=== PATIENT | male | born 1960 | race Caucasian/White ===

== ENCOUNTER 2019-04-28 12:55 | Emergency (ER) | payer BC ==
[2019-04-28 13:12] VITALS: RESP 18
[2019-04-28] MEDS ORDERED: SODIUM CHLORIDE 0.9% 500 ML 500 ML IV STA (14:23)
--- NOTE | 2019-04-28 14:28 | ED ---
General Adult HPI - General Chief complaint: ENT Stated complaint: Lump on neck Time Seen by Provider: 04/28/19 14:11 Source: patient, RN notes reviewed Mode of arrival: ambulatory Limitations: no limitations - History of Present Illness Initial comments: 58-year-old male presents to the emergency department for a chief complaint of "lump on neck." Patient states he has felt a pop on the left side of his neck for several months. Patient states that he was hoping it would go away. States he did call his primary care provider however has never seen them so it will take several months to be able to get an appointment. Patient states his finally made him come in today. Patient denies any difficulty swallowing. Denies respiratory distress. Denies fevers or chills. He does state he has some discomfort when turning his neck. Patient does have a smoking history. Patient has no other complaints at this time including shortness of breath, chest pain, abdominal pain, nausea or vomiting, headache, or visual changes. - Related Data Home Medications Medication Instructions Recorded Confirmed Multivitamins, Thera [Multivitamin 1 tab PO DAILY 04/28/19 04/28/19 (formulary)] Allergies Allergy/AdvReac Type Severity Reaction Status Date / Time No Known Allergies Allergy Verified 04/28/19 16:34 Review of Systems ROS Statement: Those systems with pertinent positive or pertinent negative responses have been documented in the HPI. ROS Other: All systems not noted in ROS Statement are negative. Past Medical History Past Medical History: No Reported History History of Any Multi-Drug Resistant Organisms: None Reported Past Surgical History: No Surgical Hx Reported Past Psychological History: No Psychological Hx Reported Smoking Status: Current some day smoker Past Alcohol Use History: None Reported Past Drug Use History: None Reported General Exam Limitations: no limitations General appearance: alert, in no apparent distress Head exam: Present: atraumatic, normocephalic, normal inspection Eye exam: Present: normal appearance, PERRL, EOMI. Absent: scleral icterus, conjunctival injection ENT exam: Present: normal exam, normal oropharynx (patent, uvula is midline. Tonsillar pillars are symmetric.), mucous membranes moist, TM's normal bilaterally, normal external ear exam Neck exam: Present: normal inspection, full ROM, lymphadenopathy (Patient has a nodule noted to the left side submandibular area). Absent: tenderness, men ingismus Respiratory exam: Present: normal lung sounds bilaterally. Absent: respiratory distress, wheezes, rales, rhonchi, stridor Cardiovascular Exam: Present: regular rate, normal rhythm, normal heart sounds. Absent: systolic murmur, diastolic murmur, rubs, gallop, clicks GI/Abdominal exam: Present: normal bowel sounds Neurological exam: Present: alert Course Vital Signs 04/28/19 04/28/19 04/28/19 13:07 14:10 17:34 Temperature 97.9 F 98.3 F 98 F Pulse Rate 83 77 76 Respiratory 18 18 18 Rate Blood Pressure 132/82 111/85 137/98 O2 Sat by Pulse 100 97 95 Oximetry Medical Decision Making - Medical Decision Making She presents with left-sided neck nodule for several months. Patient finally came today because his made him. He denies dysphagia, respiratory distr ess. Handling secretions without difficulty. Oropharynx is patent. Well- appearing. Vitals are stable. CBC CMP is unremarkable. CT soft tissue neck with contrast was obtained which shows underlying large heterogeneously enhancing possibly partially necrotic lymph nodes on the left side of the neck measuring up to 4.8 cm. Mass effects to the left carotid space and slight asymmetric effacement of the left puriform sinus. Underlying metastatic lymphadenopathy or severe infectious lymphadenitis are considerations. This presents as a lymphadenopathy. The given has been several months, non- erythematous, nontender. Not consistent with a severe infection. However I did discuss this case with Dr. Lucio. He recommends patient follow [facility] with [facility], does not recommend emergenct transfer. I did call their hospital and they recommend calling the referring physician office on Tuesday. They would not let me speak directly to the ENT or resident. I will also give this information to Shena, follow-up RN. She will also call this line as well as the patient to ensure that he is having appropriate follow-up. - Lab Data Result diagrams: 04/28/19 14:38 04/28/19 14:38 Lab Results 04/28/19 04/28/19 Range/Units 14:38 14:38 WBC 5.9 (3.8-10.6) k/uL RBC 5.28 (4.30-5.90) m/uL Hgb 15.4 (13.0-17.5) gm/dL Hct 47.0 (39.0-53.0) % MCV 88.9 (80.0-100.0) fL MCH 29.2 (25.0-35.0) pg MCHC 32.8 (31.0-37.0) g/dL RDW 12.3 (11.5-15.5) % Plt Count 194 (150-450) k/uL Neutrophils % (Manual) 51 % Lymphocytes % (Manual) 29 % Monocytes % (Manual) 18 % Eosinophils % (Manual) 2 % Neutrophils # (Manual) 3.01 (1.3-7.7) k/uL Lymphocytes # (Manual) 1.71 (1.0-4.8) k/uL Monocytes # (Manual) 1.06 H (0-1.0) k/uL Eosinophils # (Manual) 0.12 (0-0.7) k/uL Nucleated RBCs 0 (0-0) /100 WBC Manual Slide Review Performed Sodium 136 L (137-145) mmol/L Potassium 4.4 (3.5-5.1) mmol/L Chloride 105 (98-107) mmol/L Carbon Dioxide 26 (22-30) mmol/L Anion Gap 5 mmol/L BUN 17 (9-20) mg/dL Creatinine 0.72 (0.66-1.25) mg/dL Est GFR (CKD-EPI)AfAm >90 (>60 ml/min/1.73 sqM) Est GFR (CKD-EPI)NonAf >90 (>60 ml/min/1.73 sqM) Glucose 142 H (74-99) mg/dL Calcium 8.7 (8.4-10.2) mg/dL Total Bilirubin 0.5 (0.2-1.3) mg/dL AST 35 (17-59) U/L ALT 26 (4-49) U/L Alkaline Phosphatase 67 (38-126) U/L Total Protein 6.6 (6.3-8.2) g/dL Albumin 4.0 (3.5-5.0) g/dL Disposition Clinical Impression: Lump on neck Disposition: HOME SELF-CARE Condition: Good Instructions (If sedation given, give patient instructions): Lymphadenopathy (ED) Additional Instructions: Please call Wali Palma's referring physician office on Tuesday for urgent ENT referral. Phone number [phone]. We will also have our nurse call in the morning. Follow up with primary care as well. Return to the emergency dept if you have any worsening symptoms Is patient prescribed a controlled substance at d/c from ED?: No Referrals: Moises Joseph MD [REFERRING] - 1-2 days Time of Disposition: 17:24
[2019-04-28 15:00] LABS: ALT 26 U/L (4-49); AST 35 U/L (17-59); African American GFR (CKD) >90 (>60 ml/min/1.73 sqM); Alkaline Phosphatase 67 U/L (38-126); Anion Gap 5 mmol/L; Blood Urea Nitrogen 17 mg/dL (9-20); Calcium 8.7 mg/dL (8.4-10.2); Carbon Dioxide 26 mmol/L (22-30); Chloride 105 mmol/L (98-107); Glucose 142 mg/dL (74-99); Non-African American GFR(CKD) >90 (>60 ml/min/1.73 sqM); Potassium 4.4 mmol/L (3.5-5.1); Sodium 136 mmol/L (137-145); Total Bilirubin 0.5 mg/dL (0.2-1.3); Total Protein 6.6 g/dL (6.3-8.2)
[2019-04-28 15:01] LABS: HGB 15.4 gm/dL (13.0-17.5); MCH 29.2 pg (25.0-35.0); MCHC 32.8 g/dL (31.0-37.0); MCV 88.9 fL (80.0-100.0); Mean Platelet Volume 7.2; Platelet Count 194 k/uL (150-450); RBC 5.28 m/uL (4.30-5.90); RDW 12.3 % (11.5-15.5); WBC 5.9 k/uL (3.8-10.6)
--- NOTE | 2019-04-28 15:16 | CT ---
EXAMINATION TYPE: CT soft tissue neck w con DATE OF EXAM: 04/28/2019 COMPARISON: None HISTORY: 58-year-old male neck swelling TECHNIQUE: Contiguous axial scanning of the soft tissues of the neck performed with IV Contrast, vanessa ent injected with 100 mL of Isovue 300. Coronal/sagittal reconstructions performed. CT DLP: 184 mGycm Automated exposure control for dose reduction was used. FINDINGS: Visualized intracranial structures show no gross abnormality by neck CT technique. Visualized paranas al sinuses show rightward nasal septal deviation. Mastoid air cells appear clear. Orbits and globes a ppear intact. Nasopharynx appears clear. Slight 7 mm nodularity along the right vallecular space, probable lingual tonsillar hypertrophy. Epiglottis and prevertebral soft tissues appear within normal limits. There seems to be underlying enlarged, heterogeneously enhancing, possibly partially necrotic lymph n odes along the left side of the neck measuring up to approximately 4.8 x 4.4 x 2.8 cm, refer to coron al image 42 and axially 46. This seems to be spanning left stations 2 and 3. Fat planes are not well delineated limiting assessment. There is some mass effect onto the left carot id space and slight asymmetric effacement of the left piriform sinus as a result. Glottic and subglottic structures as well as the tracheal column appear clear. Emphysematous change i n the visualized upper lungs with biapical pleural parenchymal scarring. Thyroid, submandibular, parotid glands show no gross abnormality. Mild to moderate degenerative disc disease mid to lower cervical spine reversal of the normal cervica l lordosis. IMPRESSION: FINDINGS SUGGEST UNDERLYING LARGE, HETEROGENEOUSLY ENHANCING, POSSIBLY PARTIALLY NECROTIC LYMPH NODES ALONG THE LEFT SIDE OF THE NECK MEASURING UP TO 4.8 X 4.4 X 2.8 CM. THERE IS MASS EFFECT TO THE LEFT CAROTID SPACE AND SLIGHT ASYMMETRIC EFFACEMENT OF THE LEFT PIRIFORM SINUS A RESULT. UNDERLYING ME TASTATIC LYMPHADENOPATHY OR SEVERE INFECTIOUS LYMPHADENITIS ARE CONSIDERATIONS.
[2019-04-28 15:27] LABS: Eosinophils # (M) 0.12 k/uL (0-0.7); Lymphocytes # (M) 1.71 k/uL (1.0-4.8); Monocytes # (M) 1.06 k/uL (0-1.0); Neutrophils # (M) 3.01 k/uL (1.3-7.7); Neutrophils % (M) 51 %; Nucleated Red Blood Cells 0 /100 WBC (0-0); Total Cells Counted 100
[2019-04-28 17:41] VITALS: BP 137/98; PULSE 76; TEMP 98
== END 2019-04-28 17:34 | disposition home or self-care (01) ==
LOC: EC 12:55
DX: R59.0 Localized enlarged lymph nodes (principal); F17.200 Nicotine dependence, unspecified, uncomplicated
CPT/HCPCS: 36415; 80053; 85025; 70491; 99284; 96360; Q9967

== ENCOUNTER → 2019-05-15 | Outpatient (CLI) | payer BC ==
[2019-05-16 02:51] LABS: EBV - VCA (IgG) >750.0 U/mL (<18.0); EBV - VCA IgM <10.0 U/mL (<36.0)
== END ==
LOC: LABWHC1 11:25
PROVIDERS: ATTEND Otolaryngology
DX: R22.1 Localized swelling, mass and lump, neck (principal); R53.83 Other fatigue
CPT/HCPCS: 36415; 83615; 86665

== ENCOUNTER → 2019-05-17 | Outpatient (CLI) | payer BC ==
--- NOTE | 2019-05-17 14:53 | CT ---
EXAMINATION TYPE: CT chest w con DATE OF EXAM: 05/17/2019 COMPARISON: None HISTORY: Cough and presurgical neck. CT DLP: 257.9 mGycm, Automated exposure control for dose reduction was used. CONTRAST: Performed injected with 100 mL of Isovue 300. TECHNIQUE: Axial images were obtained at 5 mm thick sections. Reconstructed images are reviewed on [employer] computer in the coronal plane. FINDINGS: Portion of the thyroid visualized is normal. No suspicious lung nodules or focal infiltrates are present. No enlarged mediastinal or hilar adenopathy is evident. The ascending aorta diameter at the level o f the main pulmonary artery is 3.1 cm. The main pulmonary artery diameter at the bifurcation is 2.3 cm. Minimal coronary artery calcifications present. Limited CT sections are obtained through the upper abdomen. Abdomen is essentially unremarkable. IMPRESSIONS: 1. No acute pulmonary process.
== END | disposition home or self-care (01) ==
LOC: RADCTMAIN 10:06
PROVIDERS: ATTEND Otolaryngology
DX: R05 Cough (principal); R22.1 Localized swelling, mass and lump, neck
CPT/HCPCS: 71260; Q9967

== ENCOUNTER → 2019-06-13 | Outpatient (CLI) | payer BC | END | disposition home or self-care (01) | LOC: LABWHC1 11:24 | PROVIDERS: ATTEND Otolaryngology | DX: N40.0 Benign prostatic hyperplasia without lower urinary tract symptoms (principal) | CPT/HCPCS: 36415; 84153 ==

== ENCOUNTER → 2021-06-25 | Outpatient (CLI) | payer BC ==
--- NOTE | 2021-06-25 22:21 | FL ---
EXAMINATION TYPE: FL small bowel follow through DATE OF EXAM: 06/25/2021 COMPARISON: None available HISTORY: Intussusception, abdominal pain and vomiting TECHNIQUE: A small bowel follow through is performed. 0 second fluoroscopic time was utilized during procedure and 8 images obtained. FINDINGS: Biomedical Photographer image of the abdomen show significant fecal loading of the colon. Degenerative crowley es of the lower lumbar spine.. No gross gastric or duodenal abnormality. The small bowel study shows transit to the colon in less th an 150 minutes. There is normal mucosal fold pattern throughout the small bowel. There is no eviden ce of any stricture or filling defect noted. No obvious intussusception identified. The terminal ile um is unremarkable. IMPRESSION: Unremarkable small bowel follow through. If intussusception is still clinically suspected, further CT assessment or CT enterography/MR enterog alicia can be considered.
== END | disposition home or self-care (01) ==
LOC: RADFLMAIN 08:01
PROVIDERS: ATTEND Surgery
DX: K56.1 Intussusception (principal)
CPT/HCPCS: 74250

== ENCOUNTER → 2022-07-19 | Outpatient (CLI) | payer BC ==
--- NOTE | 2022-07-19 11:18 | CT ---
EXAMINATION TYPE: CT soft tissue neck w con CT DLP: 366.7 mGycm, Automated exposure control for dose reduction was used. DATE OF EXAM: 07/19/2022 10:57 AM COMPARISON: 04/28/2019. CLINICAL INDICATION:Male, 61 years old with history of C34.90; sore throat hx of throat CA TECHNIQUE: Standard enhanced CT of the neck. Axial sections with coronal and sagittal reformats were obtained. Contrast used:100 mL of Isovue 300 with IV Contrast, Oral contrast used: none. FINDINGS: Brain: Visualized portions are grossly unremarkable. Orbits: Unremarkable Sinuses: Grossly unremarkable. Spaces of the neck: There is mild asymmetric fullness to the left in the preepiglottic fat. Series 2 image 51 Musculoskeletal: No acute osseous pathology. Lymph nodes: Multiple nonenlarged lymph nodes are seen along both anterior chains of the neck. Vascular structures: Visualized major arteries are patent without evidence of aneurysm. Thoracic Inlet/airway: Airway is patent. Soft tissues/Thyroid: Thyroid right upper lobe hypodense nodule suggested measuring 5 mm. Other: none. IMPRESSION Asymmetric left soft tissue within the preepiglottic fat. Further evaluation with direct visualizatio n recommended. No evidence of lymphadenopathy or organizing fluid collection.
== END | disposition home or self-care (01) ==
LOC: RADCTMAIN 09:49
PROVIDERS: ATTEND Internal Medicine Hematology & Oncology
DX: C34.90 Malignant neoplasm of unspecified part of unspecified bronchus or lung (principal); G89.3 Neoplasm related pain (acute) (chronic)
CPT/HCPCS: 70491; Q9967

== ENCOUNTER → 2022-10-22 | Outpatient (CLI) | payer BC ==
--- NOTE | 2022-11-11 10:28 | MR ---
EXAMINATION TYPE: MR neck wo/w con DATE OF EXAM: 10/22/2022 COMPARISON: Soft tissue CT neck 07/19/2022 HISTORY: Hx of lung cancer, Larynx cancer, Supraglottic CONTRAST: Performed utilizing 6.5 mL intravenous Gadavist gadolinium contrast. TECHNIQUE: Multiplanar, multiecho imaging on a 3.0 Alexa magnet is performed through the neck and upp er chest. FINDINGS: Mild scoliosis as through the cervical spine. Subglottic airway appears normal. Abnormal signal surrounding the vocal cord level extending into hypopharynx. This is greater on the p osterior left than the right but surrounds the entire larynx. This area measures approximately 4.3 x 3.6 cm. This area diffusely enhances. Vocal cord level is asymmetric with medial displacement of the left vocal cord. Some involvement of the base of the left aryepiglottic fold should be considered. No obvious lung apical mass is evident. No spinal canal stenosis. No suspicious adenopathy is ident ified. Submandibular and parotid regions appear normal IMPRESSIONS: 1. Abnormal masslike area at the level of the vocal cords with the epicenter in the posterior lateral left side. However, enhancement and mass abnormality appears to involve the entire larynx. 2. Local metastatic findings are not evident.
== END | disposition home or self-care (01) ==
LOC: RADMRIMAIN 21:00
PROVIDERS: ATTEND Radiology Radiation Oncology
DX: C76.0 Malignant neoplasm of head, face and neck (principal); C32.1 Malignant neoplasm of supraglottis
CPT/HCPCS: 70543; A9585

== ENCOUNTER 2022-11-09 12:35 | Day surgery (SDC) | payer BC ==
[2022-11-09] MEDS ORDERED: LACTATED RINGERS 1,000 ML IV SCH (13:01)
[2022-11-09] MEDS ORDERED: LIDOCAINE 1% (10MG/ML) FOR IV START INTRADERMA PRN (13:01)
[2022-11-09 13:08] VITALS: TEMP 97.6
[2022-11-09] MEDS ORDERED: PROPOFOL 10 MG/ML 20 ML VIAL IV ONE (13:23)
[2022-11-09] MEDS ORDERED: LIDOCAINE 2% INJ 20 MG/ML (2 ML VIAL) ONE (13:23)
--- NOTE | 2022-11-09 13:26 | P.GSHP ---
History of Present Illness H&P Date: 11/09/22 Chief Complaint: Rectal bleeding 62-year-old male here for colonoscopy. Last colonoscopy 8 years ago. Patient with personal history of throat cancer currently. At some rectal bleeding recently. For that reason was told to have a colonoscopy. Family history of colon cancer in his father. 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, recent dx of laryngeal cancer History of Any Multi-Drug Resistant Organisms: None Reported Past Surgical History: No Surgical Hx Reported Additional Past Surgical History / Comment(s): Bronchoscopies, colonoscopy Past Anesthesia/Blood Transfusion Reactions: No Reported Reaction Smoking Status: Light tobacco smoker - Past Family History Mother Family Medical History: No Reported History Father Family Medical History: Cancer Additional Family Medical History / Comment(s): Prostate ca Medications and Allergies Home Medications Medication Instructions Recorded Confirmed Type Ibuprofen [Motrin Ib] 200 mg PO Q8H PRN 11/03/22 11/03/22 History HYDROcodone/APAP 5-325MG [[place] 1 tab PO Q6HR 11/09/22 11/09/22 History 5-325] Allergies Allergy/AdvReac Type Severity Reaction Status Date / Time No Known Allergies Allergy Verified 11/09/22 13:01 Surgical - Exam Vital Signs Temp Pulse Resp BP Pulse Ox 97.6 F 69 20 115/69 100 11/09/22 13:06 11/09/22 13:06 11/09/22 13:06 11/09/22 13:06 11/09/22 13:06 Physical exam: General: Well-developed, well-nourished HEENT: Normocephalic, sclerae nonicteric Abdomen: Nontender, nondistended Extremities: No edema Neuro: Alert and oriented Assessment and Plan (1) Rectal bleeding Narrative/Plan: Will proceed with colonoscopy at this time. Current Visit: Yes Status: Acute Code(s): K62.5 - HEMORRHAGE OF ANUS AND RECTUM SNOMED Code(s): 89784750
--- NOTE | 2022-11-09 13:45 | P.PCN ---
Date of Procedure: 11/09/22 Procedure(s) Performed: PREOPERATIVE DIAGNOSIS: Rectal bleeding, family history of colon cancer POSTOPERATIVE DIAGNOSIS: Diverticulosis, sigmoid colon polyp PROCEDURE: Colonoscopy with snare polypectomy ANESTHESIA: MAC SURGEON: Morgan Antunez M.D. SPECIMENS: Sigmoid polyp ENDOSCOPIC PROCEDURE: The patient was placed on the endoscopy table in the left decubitus position. The Olympus colonoscope was inserted into the anus and passed under direct visualization to the base of the cecum. The appendiceal orifice was visualized. From that point the scope was slowly withdrawn inspecting all surfaces carefully. There were no neoplastic inflammatory or polypoid lesions throughout the cecum, ascending, transverse, and descending colon. In the sigmoid colon a small polyp was seen and removed using the snare polypectomy technique. The remainder of the sigmoid and rectum appeared normal. There was mild left-sided diverticulosis. Digital rectal examination was normal. The patient was taken to the recovery room in stable condition per anesthesia guidelines. RECOMMENDATIONS: Await biopsy results. Repeat colonoscopy in 5 years.
[2022-11-09 14:01] VITALS: RESP 16
[2022-11-09 14:02] VITALS: BP 112/67; PULSE 65
== END 2022-11-09 14:20 | disposition home or self-care (01) ==
LOC: ORWHC2ENDO 12:35
PROVIDERS: ATTEND Surgery
DX: K63.5 Polyp of colon (principal); K57.31 Diverticulosis of large intestine without perforation or abscess with bleeding; Z80.0 Family history of malignant neoplasm of digestive organs
CPT/HCPCS: 88305; 45385; J2704; J2001

== ENCOUNTER 2022-12-27 17:40 | Emergency (ER) | payer OTHER, BC ==
[2022-12-27 17:48] VITALS: RESP 20; TEMP 98.3
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
[2022-12-27 20:17] VITALS: BP 125/92; PULSE 93
== END 2022-12-27 20:17 | disposition home or self-care (01) ==
LOC: EC 17:40
DX: S16.1XXA Strain of muscle, fascia and tendon at neck level, initial encounter (principal); F17.200 Nicotine dependence, unspecified, uncomplicated; F12.90 Cannabis use, unspecified, uncomplicated; V89.2XXA Person injured in unspecified motor-vehicle accident, traffic, initial encounter; Y92.410 Unspecified street and highway as the place of occurrence of the external cause
CPT/HCPCS: 70450; 72125; 99285

== ENCOUNTER 2023-01-10 12:17 | Inpatient (IN) | payer BC ==
[2023-01-10] MEDS ORDERED: RX INFO: IV CONTRAST WAS GIVEN 1 EACH MISC MISCELLANE PRN (12:59)
--- NOTE | 2023-01-10 13:03 | ED ---
General Adult HPI - General Chief complaint: Shortness of Breath Stated complaint: SOB, Dehydration-cancer pt Time Seen by Provider: 01/10/23 12:37 Source: patient Mode of arrival: wheelchair Limitations: no limitations - History of Present Illness Initial comments: Dictation was produced using [employer] dictation software. please excuse any grammatical, word or spelling errors. Chief Complaint: 62-year-old male presents to the emergency room with dyspnea History of Present Illness: Patient is 62-year-old male history of throat canc er. He was supposed to get radiation therapy. Prior to radiation therapy he was felt to be dehydrated. Rotation therapy team gave him fluids. Is getting fluids he became dyspneic. is at the bedside states that patient has been having episodes like this over the last several weeks. Patient has any fevers. He does report coughing productive of yellow tinted clear sputum. Patient denies any chest pain. Patient's oncologist is Dr. Senior. He has seen an ENT physician in the past however apparently according to he was dismissed from that practice after missing an appointment The ROS documented in this emergency department record has been reviewed and confirmed by me. Those systems with pertinent positive or negative responses have been documented in the HPI. All other systems are other negative and/or noncontributory. - Related Data Home Medications Medication Instructions Recorded Confirmed HYDROcodone/APAP 5-325MG [[place] 1 tab PO Q6HR PRN 11/09/22 01/10/23 5-325] Acetaminophen Tab [Tylenol Tab] 500 mg PO Q6HR PRN 01/10/23 01/10/23 Doxepin 10mg/Ml Concentrate 10 mg PO TID 01/10/23 01/10/23 Lidocaine Viscous 2% [Xylocaine 5 ml MUCOUS MEM Q1H PRN 01/10/23 01/10/23 Viscous] Mometasone Furoate [Elocon Cream 1 applic TOPICAL BID 01/10/23 01/10/23 0.1%] Omeprazole 20 mg PO DAILY 01/10/23 01/10/23 Ondansetron Odt [Zofran ODT] 8 mg SL TID PRN 01/10/23 01/10/23 Pantoprazole [Protonix] 40 mg PO DAILY 01/10/23 01/10/23 bisacodyL [Dulcolax] 10 mg PO DAILY 01/10/23 01/10/23 guaiFENesin [Mucinex] 600 - 1,200 mg PO Q12H PRN 01/10/23 01/10/23 oxyCODONE HCL [OxyIR] 5 mg PO DIRECTED PRN 01/10/23 01/10/23 predniSONE 100 mg PO DIRECTED 01/10/23 01/10/23 Allergies Allergy/AdvReac Type Severity Reaction Status Date / Time No Known Allergies Allergy Verified 01/10/23 13:52 Review of Systems ROS Statement: Those systems with pertinent positive or pertinent negative responses have been documented in the HPI. ROS Other: All systems not noted in ROS Statement are negative. 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, recent dx of laryngeal cancer History of Any Multi-Drug Resistant Organisms: None Reported Past Surgical History: No Surgical Hx Reported Additional Past Surgical History / Comment(s): Bronchoscopies, colonoscopy Past Anesthesia/Blood Transfusion Reactions: No Reported Reaction Past Psychological History: No Psychological Hx Reported Smoking Status: Light tobacco smoker Past Alcohol Use History: None Reported Past Drug Use History: Marijuana - Past Family History Mother Family Medical History: No Reported History Father Family Medical History: Cancer Additional Family Medical History / Comment(s): Prostate ca General Exam - General Exam Comments Initial Comments: PHYSICAL EXAM: General Impression: Alert and oriented x3, acute distress secondary to dyspnea HEENT: Normocephalic atraumatic, extra-ocular movements intact, pupils equal and reactive to light bilaterally, mucous membranes moist. Cardiovascular: Heart regular rate and rhythm Chest: Tachypneic, dyspneic, mild retractions, [place]ryl [place] territory Abdomen: abdomen soft, non-tender, non-distended, no organomegaly Musculoskeletal: Pulses present and equal in all extremities, no peripheral edema Motor: no focal deficits noted Neurological: CN II-XII grossly intact, no focal motor or sensory deficits noted Skin: Intact with no visualized rashes Psych: Normal affect and mood Limitations: no limitations Course Vital Signs 01/10/23 01/10/23 01/10/23 12:33 13:06 14:33 Temperature 98 F Pulse Rate 111 H 108 H 102 H Respiratory 24 24 26 H Rate Blood Pressure 125/75 138/89 146/94 O2 Sat by Pulse 95 100 99 Oximetry EKG Findings - EKG Comments: EKG Findings:: My EKG interpretation: Ventricular rate 111, sinus tachycardia, [place] interval 117, QRS 82, QTC 378. No [place] prolongation, no QTC prolongation, no ST or T-wave changes noted. . Overall, this EKG is unremarkable Medical Decision Making - Medical Decision Making Was pt. sent in by a medical professional or institution (, ALOK, RESIDENTIAL SUPERVISOR, urgent care, hospital, or senior living...) When possible be specific @ -Sent to the hospital from radiation clinic Did you speak to anyone other than the patient for history (EMS, parent, family, police, friend...)? What history was obtained from this source @ -No Did you review nursing and triage notes (agree or disagree)? Why? @ -I reviewed and agree with nursing and triage notes Were old charts reviewed (outside hosp., previous admission, EMS record, old EKG, old radiological studies, urgent care reports/EKG's, senior living records)? Report findings @ -No old charts were reviewed Differential Diagnosis (chest pain, altered mental status, abdominal pain women, abdominal pain men, vaginal bleeding, musculoskeletal, weakness, fever, dyspnea, syncope, headache, dizziness, GI bleed, back pain, seizure, CVA, palpatations, mental health)? @ -Differential Dyspnea: Coronary syndrome, arrhythmia, tamponade, asthma, COPD, pulmonary embolism, pneumonia, pneumothorax, pulmonary effusion, anaphylaxis, diabetic ketoacidosis, flailed chest, pulmonary contusion, diaphragmatic rupture, anemia, neuromuscular, this is not meant to be an all-inclusive list. EKG interpreted by me (3pts min.). @ -See above X-rays interpreted by me (1pt min.). @ -None done CT interpreted by me (1pt min.). @ -CT scan of the chest and neck shows no acute processes U/S interpreted by me (1pt. min.). @ -None done What testing was considered but not performed or refused? (CT, X-rays, U/S, labs)? Why? @ -None What meds were considered but not given or refused? Why? @ -None Did you discuss the management of the patient with other professionals (professionals i.e. , ALOK, RESIDENTIAL SUPERVISOR, lab, RT, psych nurse, transition social worker, petrophysicist, teacher, title officer, leather case finisher)? Give summary @ -discussed with Dr. Ojeda for admission Was smoking cessation discussed for >3mins.? @ -No Was critical care preformed (if so, how long)? @ -No Were there social determinants of health that impacted care today? How? (Homelessness, low income, unemployed, alcoholism, drug addiction, transpo rtation, low edu. Level, literacy, decrease access to med. care, [facility], rehab)? @ -No Was there de-escalation of care discussed even if they declined (Discuss DNR or withdrawal of care, Hospice)? DNR status @ -No What co-morbidities impacted this encounter? (DM, HTN, Smoking, COPD, CAD, Cancer, CVA, ARF, Chemo, Hep., AIDS, mental health diagnosis, sleep apnea, morbid obesity)? @ -History of throat cancer with radiation therapy Was patient admitted / discharged? Hospital course, mention meds given and route, prescriptions, significant lab abnormalities, going to OR and other pertinent info. @ -62-year-old male with past nuchal history throat cancer presents to emergency department for labored breathing. Vital signs upon arrival shows rate of 111. He is not hypoxic. Physical examination shows distressed male with respiratory distress mild auscultatory wheezing. Laboratory evaluation is unremarkable. Oral testing is negative. Imaging studies shows no acute processes. Patient given breathing treatment. Will be admitted for pulmonary consultation. Undiagnosed new problem with uncertain prognosis? @ -No Drug Therapy requiring intensive monitoring for toxicity (Heparin, Nitro, Insulin, Cardizem)? @ -No Were any procedures done? @ -No Diagnosis/symptom? Acute, or Chronic, or Acute on Chronic? Uncomplicated (with out systemic symptoms) or Complicated (systemic symptoms)? @ -Respiratory failure Side effects of treatment? @ -No Exacerbation, Progression, or Severe Exacerbation? @ -No Poses a threat to life or bodily function? How? (Chest pain, [place], [place], pneumonia, PE, COPD, DKA, ARF, appy, cholecystitis, CVA, Diverticulitis, Homicidal, Suicidal, threat to staff... and all critical care pts) @ -No - Lab Data Result diagrams: 01/10/23 13:03 01/10/23 13:03 Lab Results 10/16/23 10/16/23 10/16/23 Range/Units 13:03 13:03 13:03 WBC 4.4 (3.8-10.6) k/uL RBC 4.18 L (4.30-5.90) m/uL Hgb 13.1 (13.0-17.5) gm/dL Hct 37.0 L (39.0-53.0) % MCV 88.4 (80.0-100.0) fL MCH 31.3 (25.0-35.0) pg MCHC 35.4 (31.0-37.0) g/dL RDW 13.4 (11.5-15.5) % Plt Count 144 L (150-450) k/uL MPV 7.1 Neutrophils % 75 % Lymphocytes % 14 % Monocytes % 7 % Eosinophils % 2 % Basophils % 0 % Neutrophils # 3.3 (1.3-7.7) k/uL Lymphocytes # 0.6 L (1.0-4.8) k/uL Monocytes # 0.3 (0-1.0) k/uL Eosinophils # 0.1 (0-0.7) k/uL Basophils # 0.0 (0-0.2) k/uL PT 10.6 (10.0-12.5) sec INR 1.0 (<1.2) APTT 25.9 (22.0-30.0) sec VBG pH (7.31-7.41) VBG pCO2 (37-51) mmHg VBG HCO3 (24-28) mmol/L Sodium 135 L (137-145) mmol/L Potassium 5.1 (3.5-5.1) mmol/L Chloride 100 (98-107) mmol/L Carbon Dioxide 25 (22-30) mmol/L Anion Gap 10 mmol/L BUN 22 H (9-20) mg/dL Creatinine 0.62 L (0.66-1.25) mg/dL Est GFR (CKD-EPI)AfAm >90 (>60 ml/min/1.73 sqM) Est GFR (CKD-EPI)NonAf >90 (>60 ml/min/1.73 sqM) Glucose 106 H (74-99) mg/dL Plasma Lactic Acid Elan (0.7-2.0) mmol/L Calcium 8.7 (8.4-10.2) mg/dL Magnesium 1.6 (1.6-2.3) mg/dL Influenza Type A (PCR) (Not Detectd) Influenza Type B (PCR) (Not Detectd) RSV (PCR) (Not Detectd) SARS-CoV-2 (PCR) (Not Detectd) 01/10/23 01/10/23 01/10/23 Range/Units 13:03 13:03 13:03 WBC (3.8-10.6) k/uL RBC (4.30-5.90) m/uL Hgb (13.0-17.5) gm/dL Hct (39.0-53.0) % MCV (80.0-100.0) fL MCH (25.0-35.0) pg MCHC (31.0-37.0) g/dL RDW (11.5-15.5) % Plt Count (150-450) k/uL MPV Neutrophils % % Lymphocytes % % Monocytes % % Eosinophils % % Basophils % % Neutrophils # (1.3-7.7) k/uL Lymphocytes # (1.0-4.8) k/uL Monocytes # (0-1.0) k/uL Eosinophils # (0-0.7) k/uL Basophils # (0-0.2) k/uL PT (10.0-12.5) sec INR (<1.2) APTT (22.0-30.0) sec VBG pH 7.40 (7.31-7.41) VBG pCO2 44 (37-51) mmHg VBG HCO3 27 (24-28) mmol/L Sodium (137-145) mmol/L Potassium (3.5-5.1) mmol/L Chloride (98-107) mmol/L Carbon Dioxide (22-30) mmol/L Anion Gap mmol/L BUN (9-20) mg/dL Creatinine (0.66-1.25) mg/dL Est GFR (CKD-EPI)AfAm (>60 ml/min/1.73 sqM) Est GFR (CKD-EPI)NonAf (>60 ml/min/1.73 sqM) Glucose (74-99) mg/dL Plasma Lactic Acid [place] 1.2 (0.7-2.0) mmol/L Calcium (8.4-10.2) mg/dL Magnesium (1.6-2.3) mg/dL Influenza Type A (PCR) Not Detected (Not Detectd) Influenza Type B (PCR) Not Detected (Not Detectd) RSV (PCR) Not Detected (Not Detectd) SARS-CoV-2 (PCR) Not Detected (Not Detectd) Disposition Clinical Impression: Respiratory failure Disposition: ADMITTED IP TO THIS HOSP Condition: Fair Referrals: Venkata Cortez DO [Primary Care Provider] - 1-2 days Decision Time: 14:57
[2023-01-10 13:26] LABS: VBG PH 7.4 (7.31-7.41)
[2023-01-10 13:40] LABS: Partial Thromboplastin Time 25.9 sec (22.0-30.0); Prothrombin Time 10.6 sec (10.0-12.5)
[2023-01-10 13:43] LABS: African American GFR (CKD) >90 (>60 ml/min/1.73 sqM); Anion Gap 10 mmol/L; Blood Urea Nitrogen 22 mg/dL (9-20); Calcium 8.7 mg/dL (8.4-10.2); Carbon Dioxide 25 mmol/L (22-30); Chloride 100 mmol/L (98-107); Glucose 106 mg/dL (74-99); Magnesium 1.6 mg/dL (1.6-2.3); Non-African American GFR(CKD) >90 (>60 ml/min/1.73 sqM); Sodium 135 mmol/L (137-145)
[2023-01-10 13:44] LABS: Potassium 5.1 mmol/L (3.5-5.1)
[2023-01-10 13:52] LABS: Basophils % (A) 0 %; Eosinophils # (A) 0.1 k/uL (0-0.7); Eosinophils % (A) 2 %; HGB 13.1 gm/dL (13.0-17.5); Lymphocytes # (A) 0.6 k/uL (1.0-4.8); Lymphocytes % (A) 14 %; MCH 31.3 pg (25.0-35.0); MCHC 35.4 g/dL (31.0-37.0); MCV 88.4 fL (80.0-100.0); Mean Platelet Volume 7.1; Monocytes # (A) 0.3 k/uL (0-1.0); Monocytes % (A) 7 %; Neutrophils # (A) 3.3 k/uL (1.3-7.7); Neutrophils % (A) 75 %; Platelet Count 144 k/uL (150-450); RBC 4.18 m/uL (4.30-5.90); RDW 13.4 % (11.5-15.5); WBC 4.4 k/uL (3.8-10.6)
--- NOTE | 2023-01-10 13:55 | CT ---
EXAMINATION TYPE: CT neck chest w con DATE OF EXAM: 01/10/2023 COMPARISON: 12/27/2022, MR neck 10/22/2022, CT 07/19/2022 HISTORY: SOB, history of laryngeal CA, small cell lung CA CT DLP: 403.2 mGycm CONTRAST: Patient injected with 100 mL of Isovue 370. TECHNIQUE: Axial images at 3 mm thick sections. Reconstructed images in the coronal plane and sagitt al plane are reviewed. FINDINGS: Limited CT sections are obtained the lung apices. Small amount of pneumonitis changes in t he posterior right upper lung field. Bilateral apical scarring appears to be present. CT neck: The torus tubarius appear normal. The fossa of Rosenmuller is not well-visualized on the lef t side there is some fullness present. Direct visualization can be performed. Inspector Barrel spaces are n ormal. Paranasal sinuses and mastoid air cells are clear. Parotid glands appear normal and symmetrical. Submandibular glands, are normal. Parapharyngeal spac es are normal. No suspicious adenopathy is evident. There is some fullness of the hypopharynx near the proximal esophageal sphincter. Epiglottis may have some mild thickening. In the axial plane there is asymmetry of the hypopharynx with some deviation o f the airway towards the left. Vocal cord level disclose at the time the exam. There is some asymmetr y of the tongue with a smaller left side compared to the right. Thyroid as visualized is normal. There is some mild kyphosis within the mid cervical spine. Degenerative disc changes with narrowing o f disc height is present at C4-5 C5-6 C6-7. Right jugular vein is dominant. Left jugular vein is not well-visualized during this examination. IMPRESSION: 1. Some fullness of the larynx near the level of the esophageal sphincter. There is asymmetry of the airway in the distal hypopharynx. Findings appear similar to the CT of 07/19/2022.
[2023-01-10] MEDS ORDERED: IPRATROPIUM-ALBUTEROL 3 ML NEB INHALATION STA (14:38)
[2023-01-10] MEDS ORDERED: DEXAMETHASONE SOD PHOSPHATE 10 MG/ML 1 ML VIAL IV STA (14:41)
[2023-01-10] MEDS ORDERED: NALOXONE 0.4 MG/ML 1 ML VIAL IV PRN (14:54)
[2023-01-10] MEDS: SODIUM CHLORIDE 0.9% 1,000 ML IV SCH ×3 (15:07→22:18)
[2023-01-10] MEDS ORDERED: IPRATROPIUM-ALBUTEROL 3 ML NEB INHALATION PRN (18:03)
[2023-01-10] MEDS ORDERED: HYDROcodone/APAP 5-325MG 1 EACH TAB PO PRN (18:04)
[2023-01-10] MEDS ORDERED: ACETAMINOPHEN TAB 500 MG TAB PO PRN (18:04)
--- NOTE | 2023-01-10 18:30 | XR ---
EXAMINATION TYPE: XR chest 1V DATE OF EXAM: 01/10/2023 6:19 PM CLINICAL INDICATION:Male, 62 years old with history of MINNA; [facility] COMPARISON: None TECHNIQUE: XR chest 1V Frontal view of the chest. FINDINGS: Lungs/Pleura: There is flattening of the diaphragm with increased lucency of the lungs. No evidence o f pneumothorax, pleural effusion or focal consolidation. Pulmonary vascularity: Unremarkable. Heart/mediastinum: Cardiomediastinal silhouette is unremarkable. Musculoskeletal: No acute osseous pathology. IMPRESSION: 1. No acute cardiopulmonary disease process. 2. COPD changes.
[2023-01-10] MEDS: methylPREDNISolone SOD SUCCI 125 MG/2 ML VIAL IV SCH (18:37)
[2023-01-10] MEDS: MAGNESIUM SULFATE-D5W PMX 1 GM in DEXTROSE/WATER 1 100ML.BAG IVPB SCH (22:18)
--- NOTE | 2023-01-10 22:18 | P.HPIM ---
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 Patient was sent to ER from radiation oncology due to dehydration. Patient was started IV hydration and patient started getting dyspneic. Patient denies any fever or chills. Cough with occasional lightish yellow sputum production. No nausea vomiting or diarrhea. No complaints of chest pain. Patient was sent to ER for further evaluation. Patient was found to be wheezing while in the ER and was given a dose of Decadron 10 mg IV x1. Patient states that he has been having shortness of breath for the past 1 week. He is unable to take any oral diet. Occasionally was able to swallow and chew. Patient was seen by ENT in the past but was dismissed from the practice after missing appointment. EKG on admission showed sinus tachycardia with short TN interval CT neck and chest showed some fullness of the larynx near the level of the esophageal sphincter. There is asymmetry of the airway in the distal hypopharynx. Findings similar to the CT of 07/19/2022. Chest x-ray showed no acute cardiopulmonary process. COPD changes. Laboratory data showed WBC 4.4 hemoglobin 13.1 and platelets 144 Sodium 135 potassium 5.1 chloride 100 bicarb is 25 BUN 2020 creatinine 0.16 blood sugar 106 and magnesium 1.6. Review of Systems Constitutional: Patient denies any fever or chills . Patient has generalized weakness fatigue and loss of weight and decreased appetite. Abdomen: Patient denied any nausea or vomiting or abd. pain Cardiovascular: Patient denies any chest pain. Patient does have short of breath no palpitations. No leg swelling. Respiratory: patient does have cough with slight elevation sputum production. Positive for shortness of breath Neurologic: Patient denied any numbness or tingling headache. Musculoskeletal: Patient denies any complaints of joint swelling or deformity. Skin: Negative Psychiatric: Negative Endocrine: No heat or cold intolerance. No recent weight gain. Genitourinary: No dysuria or hematuria. All other 14 point ROS negative except the above 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, recent dx of laryngeal cancer History of Any Multi-Drug Resistant Organisms: None Reported Past Surgical History: No Surgical Hx Reported Additional Past Surgical History / Comment(s): Bronchoscopies, colonoscopy Past Anesthesia/Blood Transfusion Reactions: No Reported Reaction Past Psychological History: No Psychological Hx Reported Smoking Status: Light tobacco smoker Past Alcohol Use History: None Reported Past Drug Use History: Marijuana - Past Family History Mother Family Medical History: No Reported History Father Family Medical History: Cancer Additional Family Medical History / Comment(s): Prostate ca Medications and Allergies Home Medications Medication Instructions Recorded Confirmed Type HYDROcodone/APAP 5-325MG [[place] 1 tab PO Q6HR PRN 11/09/22 01/10/23 History 5-325] Acetaminophen Tab [Tylenol Tab] 500 mg PO Q6HR PRN 01/10/23 01/10/23 History Doxepin 10mg/Ml Concentrate 10 mg PO TID 01/10/23 01/10/23 History Lidocaine Viscous 2% [Xylocaine 5 ml MUCOUS MEM Q1H PRN 01/10/23 01/10/23 History Viscous] Mometasone Furoate [Elocon Cream 1 applic TOPICAL BID 01/10/23 01/10/23 History 0.1%] Omeprazole 20 mg PO DAILY 01/10/23 01/10/23 History Ondansetron Odt [Zofran ODT] 8 mg SL TID PRN 01/10/23 01/10/23 History Pantoprazole [Protonix] 40 mg PO DAILY 01/10/23 01/10/23 History bisacodyL [Dulcolax] 10 mg PO DAILY 01/10/23 01/10/23 History guaiFENesin [Mucinex] 600 - 1,200 mg PO Q12H PRN 01/10/23 01/10/23 History oxyCODONE HCL [OxyIR] 5 mg PO DIRECTED PRN 01/10/23 01/10/23 History predniSONE 100 mg PO DIRECTED 01/10/23 01/10/23 History Allergies Allergy/AdvReac Type Severity Reaction Status Date / Time No Known Allergies Allergy Verified 01/10/23 13:52 Physical Exam Vitals: Vital Signs Temp Pulse Resp BP Pulse Ox 01/10/23 15:19 106 H 01/10/23 15:01 100 01/10/23 14:33 102 H 26 H 146/94 99 01/10/23 13:06 108 H 24 138/89 100 01/10/23 12:33 98 F 111 H 24 125/75 95 Intake and Output 01/10/23 01/10/23 01/10/23 06:59 14:59 22:59 Other: Weight 53.977 kg PHYSICAL EXAMINATION: Patient is lying in the bed. He appears to be in mild acute distress, awake a lert and oriented.. HEENT: Normocephalic. Neck is supple. Pupils reactive. Nostrils clear. Oral cav ity is moist. Neck reveals no JVD, carotid bruits, or thyromegaly. CHEST EXAMINATION: Trachea is central. Symmetrical expansion. Bilateral diffuse wheezing and coarse sounds.. CARDIAC: Normal S1, S2 with no gallops. No murmurs ABDOMEN: Soft. Bowel sounds present. Nontender. No organomegaly. No abdominal bruits. Extremities: reveal no edema. No clubbing or cyanosis Neurologically awake, alert, oriented x3 with well-coordinated movements. No focal deficits noted Skin: No skin lesions. Patient has bruising around the neck. Psychiatric: Coperative. Nonsuicidal, anxious. Musculoskeletal: No joint swelling or deformity. Normal range of motion. Results CBC & Chem 7: 01/10/23 13:03 01/10/23 13:03 Labs: Abnormal Lab Results - Last 24 Hours (Table) 01/10/23 01/10/23 Range/Units 13:03 13:03 RBC 4.18 L (4.30-5.90) m/uL Hct 37.0 L (39.0-53.0) % Plt Count 144 L (150-450) k/uL Lymphocytes # 0.6 L (1.0-4.8) k/uL Sodium 135 L (137-145) mmol/L BUN 22 H (9-20) mg/dL Creatinine 0.62 L (0.66-1.25) mg/dL Glucose 106 H (74-99) mg/dL Thrombosis Risk Factor Assmnt - DVT/VTE Prophylaxis DVT/VTE Prophylaxis: Pharmacologic Prophylaxis ordered Assessment and Plan Assessment: Shortness of breath secondary to acute COPD exacerbation Laryngeal cancer currently undergoing chemo and radiation therapy. Difficulty swallowing, decrease of oral intake and dehydration. Prior history of small cell carcinoma of the lung status post chemo/radiation in 2019 Light tobacco user and marijuana use DVT prophylaxis with Lovenox subcu GI prophylaxis with Protonix. Plan: Patient will be continued on IV hydration and encourage oral intake. Continue with IV Solu-Medrol 60 mg every 6 hourly and DuoNebs. Ordered CBC and BMP tomorrow. Continue with pain management and follow-up closely. Pulmonary was consulted for evaluation. Time with Patient: Greater than 30
[2023-01-11] MEDS: methylPREDNISolone SOD SUCCI 125 MG/2 ML VIAL IV SCH (00:02)
[2023-01-11] MEDS: MAGNESIUM SULFATE-D5W PMX 1 GM in DEXTROSE/WATER 1 100ML.BAG IVPB SCH (00:03)
--- NOTE | 2023-01-11 06:08 | P.CNPUL ---
History of Present Illness Consult date: 01/11/23 Requesting physician: Chicho Thomas Reason for consult: dyspnea Chief complaint: Shortness of breath History of present illness: I am seeing this patient in consultation today 01/11/2023 for acute shortness of breath following radiation treatment. 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 Patient reportedly received radiation therapy yesterday morning. He had been feeling short of breath over the last week, but this significantly worsened after the radiation treatment. Patient states he felt like his throat was "closing up". Patient had received 10 mg of Decadron in the emergency room. On my evaluation, the patient is currently sitting up in bed, on room air, in no acute distress. No obvious significant stridor on evaluation. CT of the neck showed some fullness of the larynx near the level of esophageal sphincter. There is asy mmetry of the airway and the distal hypopharynx, but findings are similar to CT back in June,. He is very rhonchorous to auscultation. He does have a persistent cough, with mostly clear sputum production. Denies any fevers, hemoptysis, chest pain. Chest x-ray on arrival showed no acute cardiopulmonary process. CBC on arrival was unremarkable. BMP on arrival shows sodium 135, potassium 5.1, chloride 101, serum bicarb 25, BUN 22, creatinine 0.62, glucose 106. Negative for influenza, RSV, COVID-19. Patient is being admitted to the general medical floor for observation. Review of Systems REVIEW OF SYSTEMS: CONSTITUTIONAL: Denies any recent significant weight loss or weight gain. EYES: Denies change in vision. EARS, NOSE, MOUTH, THROAT: Denies headaches. Admit sore throat. CARDIOVASCULAR: Denies chest pain, palpitations or syncopal episodes. RESPIRATORY: See HPI GASTROINTESTINAL: Denies change in appetite, abdominal pain, nausea and vomiting, or diarrhea GENITOURINARY: Denies hematuria, denies infections. MUSKULOSKELETAL: Denies pain, denies swelling. INTEGUMENTARY: Denies rash, denies eczema. NEUROLOGICAL: Denies recent memory loss, no recent seizure activity. PSYCHIATRIC: Denies anxiety, denies depression. HEMATOLOGIC/LYMPHATIC: Denies anemia, denies enlarged lymph node 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, recent dx of laryngeal cancer dx mar 2022 History of Any Multi-Drug Resistant Organisms: None Reported Past Surgical History: No Surgical Hx Reported Additional Past Surgical History / Comment(s): Bronchoscopies, colonoscopy Past Anesthesia/Blood Transfusion Reactions: No Reported Reaction Past Psychological History: No Psychological Hx Reported Additional Psychological History / Comment(s): Pt resides with his spouse and 4 daughters Smoking Status: Former smoker Past Alcohol Use History: None Reported Additional Past Alcohol Use History / Comment(s): Pt started smoking in 1978 and attempting to quit, 1 cigarette a day. Past Drug Use History: Marijuana Additional Drug Use History / Comment(s): Medical marijuana - Past Family History Mother Family Medical History: No Reported History Father Family Medical History: Cancer Additional Family Medical History / Comment(s): Prostate ca Medications and Allergies Home Medications Medication Instructions Recorded Confirmed Type HYDROcodone/APAP 5-325MG [[place] 1 tab PO Q6HR PRN 11/09/22 01/10/23 History 5-325] Acetaminophen Tab [Tylenol Tab] 500 mg PO Q6HR PRN 01/10/23 01/10/23 History Doxepin 10mg/Ml Concentrate 10 mg PO TID 01/10/23 01/10/23 History Lidocaine Viscous 2% [Xylocaine 5 ml MUCOUS MEM Q1H PRN 01/10/23 01/10/23 History Viscous] Mometasone Furoate [Elocon Cream 1 applic TOPICAL BID 01/10/23 01/10/23 History 0.1%] Omeprazole 20 mg PO DAILY 01/10/23 01/10/23 History Ondansetron Odt [Zofran ODT] 8 mg SL TID PRN 01/10/23 01/10/23 History Pantoprazole [Protonix] 40 mg PO DAILY 01/10/23 01/10/23 History bisacodyL [Dulcolax] 10 mg PO DAILY 01/10/23 01/10/23 History guaiFENesin [Mucinex] 600 - 1,200 mg PO Q12H PRN 01/10/23 01/10/23 History oxyCODONE HCL [OxyIR] 5 mg PO DIRECTED PRN 01/10/23 01/10/23 History predniSONE 100 mg PO DIRECTED 01/10/23 01/10/23 History Allergies Allergy/AdvReac Type Severity Reaction Status Date / Time No Known Allergies Allergy Verified 01/10/23 13:52 Physical Exam Vitals: Vital Signs Temp Pulse Pulse Resp BP BP Pulse Ox 01/11/23 01:25 97.7 F 70 19 108/56 96 01/10/23 22:54 97.6 F 90 19 135/83 100 01/10/23 21:30 97.6 F 88 18 125/79 94 L 01/10/23 18:50 99 01/10/23 18:41 96 01/10/23 18:24 97.0 F L 95 19 136/70 01/10/23 18:00 86 20 155/78 100 01/10/23 17:30 101 H 17 127/104 100 01/10/23 17:00 104 H 22 141/87 99 01/10/23 16:00 93 20 139/97 100 01/10/23 15:19 106 H 01/10/23 15:01 100 01/10/23 15:00 93 22 124/92 99 01/10/23 14:33 102 H 26 H 146/94 99 01/10/23 14:00 94 18 140/70 100 01/10/23 13:06 108 H 24 138/89 100 01/10/23 12:33 98 F 111 H 24 125/75 95 Intake and Output 01/10/23 01/10/23 01/11/23 14:59 22:59 06:59 Other: # Voids 1 Weight 53.977 kg 52 kg GENERAL EXAM: Alert, 62-year-old white male, cachectic, comfortable in no apparent distress. HEAD: Normocephalic and atraumatic EYES: Normal reaction of pupils, equal size. NOSE: Clear with pink turbinates. THROAT: No erythema or exudates. NECK: No masses, no JVD. CHEST: No chest wall deformity. LUNGS: No obvious stridor on auscultation of the neck. Equal air entry with diffuse rhonchi. On room air. No conversational dyspnea or accessory muscle u se.. He does have a persistent cough CVS: S1 and S2 normal with no audible murmur, regular rhythm. No extra heart sounds ABDOMEN: No hepatosplenomegaly, active bowel sounds, no guarding or rigidity. SPINE: No scoliosis or deformity SKIN: There is open wound and erythema around the neck CENTRAL NERVOUS SYSTEM: No focal deficits, tone is normal in all 4 extremities. EXTREMITIES: There is no peripheral edema, clubbing, or cyanosis. Peripheral pulses are intact. Results - Laboratory Findings CBC and BMP: 01/10/23 13:03 01/10/23 13:03 PT/INR, D-dimer PT 10.6 sec (10.0-12.5) 01/10/23 13:03 INR 1.0 (<1.2) 01/10/23 13:03 Abnormal lab findings: Abnormal Labs 01/10/23 01/10/23 13:03 13:03 RBC 4.18 L Hct 37.0 L Plt Count 144 L Lymphocytes # 0.6 L Sodium 135 L BUN 22 H Creatinine 0.62 L Glucose 106 H - Diagnostic Findings Chest x-ray: image reviewed Assessment and Plan Assessment: Laryngeal cancer currently undergoing chemo/radiation therapy. There were concerns of possible laryngeal edema, patient did receive 10 mg of Decadron in the emergency room. CT of the neck showed some fullness of the larynx near the level of esophageal sphincter. There is asymmetry of the airway and the distal hypopharynx, but findings are similar to CT back in June,. Suspected acute COPD exacerbation, chest x-ray showed no acute cardiopulmonary process. Negative for influenza, RSV, COVID-19. Acute dyspnea, secondary to above History of lung cancer status post chemo/radiation Chronic ongoing tobacco dependence Plan: Patient's medications, labs, imaging reviewed On room air No obvious concern for airway compromise at this time. Continue Decadron Continue Symbicort and DuoNeb inhalation We well continue to follow I have personally seen and examined the patient, performed the documentation and the assessment and plan as written. Number of minutes spent on the visit:20 I. Time with Patient: Greater than 30
[2023-01-11] MEDS: DEXAMETHASONE SOD PHOSPHATE 4 MG/ML 1 ML VIAL IVP SCH ×4 (06:13→22:55)
[2023-01-11] MEDS: SYMBICORT 160-4.5 MCG INHALER INHALATION SCH ×2 (07:58→20:08)
[2023-01-11] MEDS: IPRATROPIUM-ALBUTEROL 3 ML NEB INHALATION SCH ×4 (07:58→20:08)
[2023-01-11] MEDS: SODIUM CHLORIDE 0.9% 1,000 ML IV SCH (08:43)
[2023-01-11] MEDS: ENOXAPARIN 40 MG/0.4 ML SYRINGE SQ SCH (08:43)
[2023-01-11] MEDS ORDERED: PANTOPRAZOLE 40 MG TABLET PO SCH (09:00)
[2023-01-11 11:03] LABS: Calcium 9.1 mg/dL (8.7-10.3); Carbon Dioxide 26.2 mmol/L (21.6-31.8); Chloride 101 mmol/L (96-109); Glucose 130 mg/dL (70-110); Potassium 5.4 mmol/L (3.5-5.5); Sodium 136 mmol/L (135-145)
[2023-01-11 11:23] LABS: Basophils # (A) 0.01 X 10*3/uL (0.00-0.10); Basophils % (A) 0.3 %; Eosinophils # (A) 0 X 10*3/uL (0.04-0.35); Eosinophils % (A) 0 %; HCT 34.5 % (39.6-50.0); HGB 11.9 d/dL (13.0-17.0); Lymphocytes # (A) 0.28 X 10*3/uL (0.90-5.00); Lymphocytes % (A) 9.5 %; MCH 30.5 pg (27.0-32.0); MCHC 34.5 d/dL (32.0-37.0); MCV 88.5 FL (80.0-97.0); Mean Platelet Volume 8.7 FL (9.5-12.2); Monocytes # (A) 0.16 X 10*3/uL (0.20-1.00); Monocytes % (A) 5.4 %; NRBC Per 100 WBC 0 X 10*3/uL (0.00-0.01); Neutrophils # (A) 2.49 X 10*3/uL (1.80-7.70); Neutrophils % (A) 84.1 %; Platelet Count 137 X 10*3/uL (140-440); RDW 13.2 % (11.5-14.5); WBC 2.96 X 10*3/uL (4.50-10.00)
[2023-01-11] MEDS ORDERED: HYDROmorphone 0.5 MG/0.5 ML SYRINGE IVP PRN (14:28)
[2023-01-11] MEDS: HYDROmorphone 0.5 MG/0.5 ML SYRINGE IVP PRN ×2 (18:20→22:50)
[2023-01-12] MEDS: DEXTROSE 5%-0.9% NACL 1,000 ML IV SCH ×3 (01:35→17:05)
[2023-01-12] MEDS: DEXAMETHASONE SOD PHOSPHATE 4 MG/ML 1 ML VIAL IVP SCH (06:00)
[2023-01-12] MEDS: IPRATROPIUM-ALBUTEROL 3 ML NEB INHALATION SCH ×4 (08:03→20:16)
[2023-01-12] MEDS: SYMBICORT 160-4.5 MCG INHALER INHALATION SCH ×2 (08:03→20:16)
--- NOTE | 2023-01-12 08:30 | P.PN ---
Subjective Progress Note Date: 01/12/23 I am seeing this patient in consultation today 01/11/2023 for acute shortness of breath following radiation treatment. 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 Patient reportedly received radiation therapy yesterday morning. He had been feeling short of breath over the last week, but this significantly worsened after the radiation treatment. Patient states he felt like his throat was "closing up". Patient had received 10 mg of Decadron in the emergency room. On my evaluation, the patient is currently sitting up in bed, on room air, in no acute distress. No obvious significant stridor on evaluation. CT of the neck showed some fullness of the larynx near the level of esophageal sphincter. There is asymmetry of the airway and the distal hypopharynx, but findings are similar to CT back in June,. He is very rhonchorous to auscultation. He does have a persistent cough, with mostly clear sputum production. Denies any fevers, hemoptysis, chest pain. Chest x-ray on arrival showed no acute cardiopulmonary process. CBC on arrival was unremarkable. BMP on arrival shows sodium 135, potassium 5.1, chloride 101, serum bicarb 25, BUN 22, creatinine 0.62, glucose 106. Negative for influenza, RSV, COVID-19. Patient is being admitted to the general medical floor for observation. The patient is seen today 01/12/2023 in follow-up on the regular medical floor. He is currently resting in bed. Awake and alert in no acute distress. He is maintaining good O2 saturations in the 90s on room air. He has D5 0.9 normal saline at 75 ML's per hour. The plan is for PEG tube placement. He is remaining nothing by mouth. He does have retained secretions that he suctions himself. He is continued on Symbicort, DuoNeb inhalations, Decadron. Lovenox for DVT prophylaxis. His pain is well controlled. Objective - Vital Signs Vital signs: Vital Signs Temp 97.7 F 01/12/23 01:50 Pulse 78 01/12/23 08:20 Resp 16 01/12/23 01:50 BP 123/81 01/12/23 01:50 Pulse Ox 99 01/12/23 08:05 FiO2 Intake & Output 01/11/23 01/12/23 01/12/23 18:59 06:59 18:59 Intake Total 900 Balance 900 Weight 52 kg Intake: Intake, IV Titration 900 Amount Sodium Chloride 0.9% 1, 900 000 ml @ 75 mls/hr IV . [id number] [facility] Rx#:[id number] - Exam GENERAL EXAM: Alert, very pleasant 62-year-old male, cachectic, comfortable in no apparent distress. HEAD: Normocephalic and atraumatic EYES: Normal reaction of pupils, equal size. NOSE: Clear with pink turbinates. THROAT: No erythema or exudates. NECK: No masses, no JVD. CHEST: No chest wall deformity. LUNGS: No obvious stridor on auscultation of the neck. Equal air entry with diffuse rhonchi. On room air. No conversational dyspnea. CVS: S1 and S2 normal with no audible murmur, regular rhythm. No extra heart sounds ABDOMEN: No hepatosplenomegaly, active bowel sounds, no guarding or rigidity. SPINE: No scoliosis or deformity SKIN: There is open wound and erythema around the neck CENTRAL NERVOUS SYSTEM: No focal deficits, tone is normal in all 4 extremities. EXTREMITIES: There is no peripheral edema, clubbing, or cyanosis. Peripheral pulses are intact. - Labs CBC & Chem 7: 01/11/23 06:03 01/11/23 06:03 Labs: Abnormal Lab Results - Last 24 Hours (Table) 01/11/23 01/11/23 Range/Units 06:03 06:03 WBC 2.96 L (4.50-10.00) X 10*3/uL RBC 3.90 L (4.40-5.60) X 10*6/uL Hgb 11.9 L (13.0-17.0) d/dL Hct 34.5 L (39.6-50.0) % Plt Count 137 L (140-440) X 10*3/uL MPV 8.7 L (9.5-12.2) [place] Lymphocytes # 0.28 L (0.90-5.00) X 10*3/uL Monocytes # 0.16 L (0.20-1.00) X 10*3/uL Eosinophils # 0 L (0.04-0.35) X 10*3/uL BUN/Creatinine Ratio 25.00 H (12.00-20.00) Ratio Glucose 130 H (70-110) mg/dL Assessment and Plan Assessment: Laryngeal cancer currently undergoing chemo/radiation therapy. There were concerns of possible laryngeal edema, patient did receive 10 mg of Decadron in the emergency room. CT of the neck showed some fullness of the larynx near the level of esophageal sphincter. There is asymmetry of the airway and the distal hypopharynx, but findings are similar to CT back in June,. Suspected acute COPD exacerbation, chest x-ray showed no acute cardiopulmonary process. Negative for influenza, RSV, COVID-19. Acute dyspnea, secondary to above History of lung cancer status post chemo/radiation Chronic ongoing tobacco dependence Plan: The patient was seen and evaluated Currently stable and on room air No evidence of stridor Decadron will be 6 mg IV daily Plan is for PEG tube placement Remains nothing by mouth for now We will continue to follow This patient was seen independently by the nurse practitioner I have personally seen and examined the patient, performed the documentation and the assessment and plan as written. Number of minutes spent on the visit: 25.
[2023-01-12] MEDS: HYDROmorphone 0.5 MG/0.5 ML SYRINGE IVP PRN ×3 (08:41→22:07)
[2023-01-12] MEDS: ENOXAPARIN 40 MG/0.4 ML SYRINGE SQ SCH (08:42)
[2023-01-12] MEDS: DEXAMETHASONE SOD PHOSPHATE 10 MG/ML 1 ML VIAL IVP SCH (08:42)
--- NOTE | 2023-01-12 10:28 | P.GSCN ---
History of Present Illness Consult date: 01/12/23 History of present illness: CHIEF COMPLAINT: Shortness of breath HISTORY OF PRESENT ILLNESS: This is a 62-year-old male with a history of laryngeal carcinoma. He is currently undergoing chemo and radiation therapy. Patient presented to the hospital due to shortness of breath and felt like his throat was closing up. This did improve with Decadron. Patient currently on room air. Patient also had evidence of dehydration. Patient reports over the last 2 weeks he has been having difficulty swallowing and pain with swallowing. Patient failed swallowing eval. Surgical consult placed for PEG tube placement. 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 REVIEW OF SYSTEMS: CONSTITUTIONAL: Denies fever or chills. HEENT: Denies blurred vision, vision changes, or eye pain. Denies hemoptysis CARDIOVASCULAR: Denies chest pain or pressure. RESPIRATORY: No shortness of breath. GASTROINTESTINAL: See HPI for pertinent findings HEMATOLOGIC: Denies bleeding disorders. GENITOURINARY: Denies any blood in urine or increased urinary frequency. SKIN: Denies pruitis. Denies rash. PHYSICAL EXAM: VITAL SIGNS: Reviewed GENERAL: Well-developed in no acute distress. HEENT: Patient has skin irritation to the anterior neck ABDOMEN: Soft. Nondistended. nontender NEUROLOGIC: Alert and oriented. Cranial nerves II through XII grossly intact. LABORATORY DATA: WBC 2.96 Hgb 11.9 and platelets 137 Sodium 136 potassium 5.4 creatinine 0.6 Magnesium 1.6 Lactic acid 1.2 Influenza, RSV and COVID-19 not detected IMAGING: Computed tomography scan of neck some fullness of the larynx near the level of the esophageal sphincter. There is asymmetry of the airway in the distal hypopharynx. Findings appear similar to CT of 07/19/2022 ASSESSMENT: 1. Dysphagia 2. Failed swallow eval 3. Laryngeal carcinoma PLAN: -Patient scheduled for EGD with PEG tube placement tomorrow with Dr. Lopez -Nothing by mouth after midnight -Continue supportive care Physician Car Seat [employer] note has been reviewed by physician. Signing provider agrees with the documented findings, assessment, and plan of care. 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, recent dx of laryngeal cancer dx mar 2022 History of Any Multi-Drug Resistant Organisms: None Reported Past Surgical History: No Surgical Hx Reported Additional Past Surgical History / Comment(s): Bronchoscopies, colonoscopy Past Anesthesia/Blood Transfusion Reactions: No Reported Reaction Past Psychological History: No Psychological Hx Reported Additional Psychological History / Comment(s): Pt resides with his spouse and 4 daughters Smoking Status: Former smoker Past Alcohol Use History: None Reported Additional Past Alcohol Use History / Comment(s): Pt started smoking in 1978 and attempting to quit, 1 cigarette a day. Past Drug Use History: Marijuana Additional Drug Use History / Comment(s): Medical marijuana - Past Family History Mother Family Medical History: No Reported History Father Family Medical History: Cancer Additional Family Medical History / Comment(s): Prostate ca Medications and Allergies Home Medications Medication Instructions Recorded Confirmed Type HYDROcodone/APAP 5-325MG [[place] 1 tab PO Q6HR PRN 11/09/22 01/10/23 History 5-325] Acetaminophen Tab [Tylenol Tab] 500 mg PO Q6HR PRN 01/10/23 01/10/23 History Doxepin 10mg/Ml Concentrate 10 mg PO TID 01/10/23 01/10/23 History Lidocaine Viscous 2% [Xylocaine 5 ml MUCOUS MEM Q1H PRN 01/10/23 01/10/23 History Viscous] Mometasone Furoate [Elocon Cream 1 applic TOPICAL BID 01/10/23 01/10/23 History 0.1%] Omeprazole 20 mg PO DAILY 01/10/23 01/10/23 History Ondansetron Odt [Zofran ODT] 8 mg SL TID PRN 01/10/23 01/10/23 History Pantoprazole [Protonix] 40 mg PO DAILY 01/10/23 01/10/23 History bisacodyL [Dulcolax] 10 mg PO DAILY 01/10/23 01/10/23 History guaiFENesin [Mucinex] 600 - 1,200 mg PO Q12H PRN 01/10/23 01/10/23 History oxyCODONE HCL [OxyIR] 5 mg PO DIRECTED PRN 01/10/23 01/10/23 History predniSONE 100 mg PO DIRECTED 01/10/23 01/10/23 History Allergies Allergy/AdvReac Type Severity Reaction Status Date / Time No Known Allergies Allergy Verified 01/10/23 13:52 Surgical - Exam Vital Signs Temp Pulse Resp BP Pulse Ox 98 F 111 H 24 125/75 95 01/10/23 12:33 01/10/23 12:33 01/10/23 12:33 01/10/23 12:33 01/10/23 12:33 Results - Labs 01/11/23 06:03 01/11/23 06:03 Abnormal Lab Results - Last 24 Hours (Table) 01/11/23 01/11/23 Range/Units 06:03 06:03 WBC 2.96 L (4.50-10.00) X 10*3/uL RBC 3.90 L (4.40-5.60) X 10*6/uL Hgb 11.9 L (13.0-17.0) d/dL Hct 34.5 L (39.6-50.0) % Plt Count 137 L (140-440) X 10*3/uL MPV 8.7 L (9.5-12.2) FL Lymphocytes # 0.28 L (0.90-5.00) X 10*3/uL Monocytes # 0.16 L (0.20-1.00) X 10*3/uL Eosinophils # 0 L (0.04-0.35) X 10*3/uL BUN/Creatinine Ratio 25.00 H (12.00-20.00) Ratio Glucose 130 H (70-110) mg/dL Diabetes panel 01/11/23 Range/Units 06:03 Sodium 136 (135-145) mmol/L Potassium 5.4 (3.5-5.5) mmol/L Chloride 101 (96-109) mmol/L Carbon Dioxide 26.2 (21.6-31.8) mmol/L BUN 15.0 (9.0-27.0) mg/dL Creatinine 0.6 (0.6-1.5) mg/dL Glucose 130 H (70-110) mg/dL Calcium 9.1 (8.7-10.3) mg/dL Calcium panel 01/11/23 Range/Units 06:03 Calcium 9.1 (8.7-10.3) mg/dL Pituitary panel 01/11/23 Range/Units 06:03 Sodium 136 (135-145) mmol/L Potassium 5.4 (3.5-5.5) mmol/L Chloride 101 (96-109) mmol/L Carbon Dioxide 26.2 (21.6-31.8) mmol/L BUN 15.0 (9.0-27.0) mg/dL Creatinine 0.6 (0.6-1.5) mg/dL Glucose 130 H (70-110) mg/dL Calcium 9.1 (8.7-10.3) mg/dL Adrenal panel 01/11/23 Range/Units 06:03 Sodium 136 (135-145) mmol/L Potassium 5.4 (3.5-5.5) mmol/L Chloride 101 (96-109) mmol/L Carbon Dioxide 26.2 (21.6-31.8) mmol/L BUN 15.0 (9.0-27.0) mg/dL Creatinine 0.6 (0.6-1.5) mg/dL Glucose 130 H (70-110) mg/dL Calcium 9.1 (8.7-10.3) mg/dL
[2023-01-12 11:05] LABS: Basophils # (A) 0.01 X 10*3/uL (0.00-0.10); Basophils % (A) 0.2 %; Eosinophils # (A) 0 X 10*3/uL (0.04-0.35); Eosinophils % (A) 0 %; HCT 33.2 % (39.6-50.0); Lymphocytes # (A) 0.46 X 10*3/uL (0.90-5.00); Lymphocytes % (A) 11.4 %; MCH 29.9 pg (27.0-32.0); MCHC 33.1 d/dL (32.0-37.0); MCV 90.2 FL (80.0-97.0); Mean Platelet Volume 8.8 FL (9.5-12.2); Monocytes # (A) 0.36 X 10*3/uL (0.20-1.00); Monocytes % (A) 8.9 %; NRBC Per 100 WBC 0 X 10*3/uL (0.00-0.01); Platelet Count 169 X 10*3/uL (140-440); RBC 3.68 X 10*6/uL (4.40-5.60); RDW 13.2 % (11.5-14.5); WBC 4.05 X 10*3/uL (4.50-10.00)
[2023-01-12 11:11] LABS: BUN/Creat Ratio 29.83 Ratio (12.00-20.00); Blood Urea Nitrogen 17.9 mg/dL (9.0-27.0); Calcium 8.9 mg/dL (8.7-10.3); Carbon Dioxide 25.8 mmol/L (21.6-31.8); Chloride 103 mmol/L (96-109); Glucose 127 mg/dL (70-110); Potassium 4.7 mmol/L (3.5-5.5); Sodium 138 mmol/L (135-145)
[2023-01-12] MEDS: dexAMETHasone ORAL SOLUTION 4 MG/ML VIAL PO SCH ×3 (12:32→22:46)
[2023-01-12] MEDS: SALT AND SODA MOUTHWASH 1,000 ML PO SCH ×3 (12:32→22:08)
[2023-01-12] MEDS: MAG HYDROX/AL HYDROX/SIMETH 30 ML, LIDOCAINE VISCOUS 2% 30 ML, diphenhydrAMINE ELIXIR 7... PO SCH ×12 (12:33→22:47)
[2023-01-12] MEDS: LACTATED RINGERS 1,000 ML IV SCH (14:03)
--- NOTE | 2023-01-12 17:01 | P.CONS ---
History of Present Illness - Reason for Consult Consult date: 01/12/23 larynx carcinoma, currently in treatment Requesting physician: Sharon Thompson - Chief Complaint odynophagia, couldn't breathe - History of Present Illness Mr Lopez is a pleasant 62-year-old male patient of Dr. Ramos. He was initially seen in early 2019. Patient presented with an enlarging left cervical node, CT showed a 4.8 cm left neck mass, CT of the chest was negative. FNA pathology was consistent with carcinoma. Triple endoscopy and core biopsy of the cervical node was positive for small cell lung carcinoma, triple endoscopy was negative, MRI of the brain was negative, PET scan uptake in the left neck mass otherwise negative. Patient was treated with concurrent chemoradiation completing that 08/30/19. Patient continued on follow-up with no evidence of recurrence until 07/19/[address] soft tissue neck revealed asymmetric left soft tissue within the preepiglottic fat. Referred to Dr. 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 10/08/22 PET revealed suspicious uptake in left larynx and some uptake in rectum. He is currently status post 09/01 chemotherapy was, he has 6 days of radiation left. He was sent over from our office from radiation department for hydration. Patient was having complaints of difficulty in breathing, feeling very congested, "couldn't get air in, severely painful swallowing. He has been expectorating thick mucus that ranges and colors from Green to brown, he has had a small amount of blood here and there, a very harsh cough, he has continued to lose weight. He feels that are already with hydration. There are plans for PEG tube insertion tomorrow. Patient is agreeable for the same. CT neck and chest showed some fullness of the larynx near the level of the esophageal sphincter, asymmetry of the airway in the distal hypopharynx. Findings similar to the CT of 07/19/2022. CXR showed no acute cardiopulmonary process. COPD changes. No severe lab abnormalities. 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, recent dx of laryngeal cancer dx mar 2022 History of Any Multi-Drug Resistant Organisms: None Reported Past Surgical History: No Surgical Hx Reported Additional Past Surgical History / Comment(s): Bronchoscopies, colonoscopy Past Anesthesia/Blood Transfusion Reactions: No Reported Reaction Past Psychological History: No Psychological Hx Reported Additional Psychological History / Comment(s): Pt resides with his spouse and 4 daughters Smoking Status: Former smoker Past Alcohol Use History: None Reported Additional Past Alcohol Use History / Comment(s): Pt started smoking in 1978 and attempting to quit, 1 cigarette a day. Past Drug Use History: Marijuana Additional Drug Use History / Comment(s): Medical marijuana - Past Family History Mother Family Medical History: No Reported History Father Family Medical History: Cancer Additional Family Medical History / Comment(s): Prostate ca Medications and Allergies Home Medications Medication Instructions Recorded Confirmed Type HYDROcodone/APAP 5-325MG [[place] 1 tab PO Q6HR PRN 11/09/22 01/10/23 History 5-325] Acetaminophen Tab [Tylenol Tab] 500 mg PO Q6HR PRN 01/10/23 01/10/23 History Doxepin 10mg/Ml Concentrate 10 mg PO TID 01/10/23 01/10/23 History Lidocaine Viscous 2% [Xylocaine 5 ml MUCOUS MEM Q1H PRN 01/10/23 01/10/23 History Viscous] Mometasone Furoate [Elocon Cream 1 applic TOPICAL BID 01/10/23 01/10/23 History 0.1%] Omeprazole 20 mg PO DAILY 01/10/23 01/10/23 History Ondansetron Odt [Zofran ODT] 8 mg SL TID PRN 01/10/23 01/10/23 History Pantoprazole [Protonix] 40 mg PO DAILY 01/10/23 01/10/23 History bisacodyL [Dulcolax] 10 mg PO DAILY 01/10/23 01/10/23 History guaiFENesin [Mucinex] 600 - 1,200 mg PO Q12H PRN 01/10/23 01/10/23 History oxyCODONE HCL [OxyIR] 5 mg PO DIRECTED PRN 01/10/23 01/10/23 History predniSONE 100 mg PO DIRECTED 01/10/23 01/10/23 History Allergies Allergy/AdvReac Type Severity Reaction Status Date / Time No Known Allergies Allergy Verified 01/10/23 13:52 Physical Exam Vitals: Vital Signs Temp Pulse Pulse Resp BP BP Pulse Ox 01/12/23 08:20 78 01/12/23 08:05 99 01/12/23 08:03 72 01/12/23 01:50 97.7 F 77 16 123/81 99 01/11/23 20:20 76 01/11/23 20:08 76 01/11/23 20:00 91 14 01/11/23 18:10 98.7 F 91 109/67 01/11/23 15:34 76 01/11/23 15:20 76 01/11/23 15:00 98.0 F 76 14 111/70 100 01/11/23 12:40 98.0 F 92 16 118/75 99 01/11/23 11:23 88 01/11/23 11:11 84 Intake and Output 01/11/23 01/12/23 01/12/23 22:59 06:59 14:59 Intake Total 900 Balance 900 Intake: Intake, IV Titration 900 Amount Sodium Chloride 0.9% 1, 900 000 ml @ 75 mls/hr IV . [id number] [facility] Rx#:[id number] Other: Weight 52 kg - Constitutional General appearance: cooperative, no acute distress, thin - EENT red posterior oropharynx Eyes: anicteric sclerae, EOMI ENT: hearing grossly normal - Neck skin changes/damage c/w radiation [place] center of the anterior neck - Respiratory Respiratory: bilateral: rales (few scattered) - Cardiovascular Rhythm: regular Heart sounds: normal: S1, S2 Abnormal Heart Sounds: no systolic murmur, no diastolic murmur, no rub, no S3 Gallop, no S4 Gallop, no click, no other leg Peripheral Edema: bilateral: None - Gastrointestinal General gastrointestinal: no absent bowel sounds, no decreased bowel sounds, no distended, no hepatomegaly, no hyperactive bowel sounds, normal bowel sounds, no organomegaly, no rigid, no scaphoid, soft, no splenomegaly, no tenderness, no umbilical hernia, no ventral hernia - Integumentary see neck exam multiple skin lesions and thickened skin on sun exposed areas - Neurologic Neurologic: CNII-XII intact (grossly, pain with tongue movements) - Musculoskeletal Musculoskeletal: strength equal bilaterally - Psychiatric Psychiatric: A&O x's 3, appropriate affect, intact judgment & insight Results CBC & Chem 7: 01/12/23 06:05 01/12/23 06:05 Labs: Abnormal Lab Results - Last 24 Hours (Table) 01/11/23 01/11/23 Range/Units 06:03 06:03 WBC 2.96 L (4.50-10.00) X 10*3/uL RBC 3.90 L (4.40-5.60) X 10*6/uL Hgb 11.9 L (13.0-17.0) d/dL Hct 34.5 L (39.6-50.0) % Plt Count 137 L (140-440) X 10*3/uL MPV 8.7 L (9.5-12.2) FL Lymphocytes # 0.28 L (0.90-5.00) X 10*3/uL Monocytes # 0.16 L (0.20-1.00) X 10*3/uL Eosinophils # 0 L (0.04-0.35) X 10*3/uL BUN/Creatinine Ratio 25.00 H (12.00-20.00) Ratio Glucose 130 H (70-110) mg/dL Comments: neck CT report reviewed Chest x-ray: report reviewed CT scan - chest: report reviewed, image reviewed Assessment and Plan (1) Radiation-induced esophagitis Current Visit: Yes Status: Acute Priority: High Code(s): K20.80 - OTHER ES OPHAGITIS WITHOUT BLEEDING; T66.XXXA - RADIATION SICKNESS, UNSPECIFIED, INITIAL ENCOUNTER SNOMED Code(s): 127537639 Plan: Radiation-induced esophagitis, possibly some Inflammation of the trachea secondary to the radiation -Kools with dex for odynophagia -liquid norco for throat/trachea pain -Agree with hydration for severe poor oral intake -PEG tomorrow for nutritional support for about 4-6 weeks. Pt has 1 more treatment, 6 more days of radiation, then it will take about 3-4 weeks to recover. -Patient encouraged to continue sips of water as tolerated -D/W finance mgr as pt will need home care for PEG -Dietitian consulted to determine feed formula. Pt will need Rx for the same Dr attests: I have seen and examioned pt, performed H&P, developed impression and plan of care. Discussed with dictator. Agree with documentation, dictated as a scribe.
[2023-01-12] MEDS: HYDROcodone/APAP 15 ML SOLUTION PO PRN (17:17)
--- NOTE | 2023-01-12 20:29 | P.PN ---
Subjective Progress Note Date: 01/11/23 Patient is a 62-year-old male with a past medical history of small cell lung cancer status post chemo/radiation in 2019, recent diagnosis of laryngeal cancer currently undergoing 7 out of 7 weekly chemotherapy and radiation. Patient was sent to ER from radiation oncology due to dehydration. Patient was started IV hydration and patient started getting dyspneic. Patient denies any fever or chills. Cough with occasional lightish yellow sputum production. No nausea vomiting or diarrhea. No complaints of chest pain. Patient was sent to ER for further evaluation. Patient was found to be wheezing while in the ER and was given a dose of Decadron 10 mg IV x1. Patient states that he has been having shortness of breath for the past 1 week. He is unable to take any oral diet. Occasionally was able to swallow and chew. Patient was seen by ENT in the past but was dismissed from the practice after missing appointment. EKG on admission showed sinus tachycardia with short NV interval CT neck and chest showed some fullness of the larynx near the level of the esophageal sphincter. There is asymmetry of the airway in the distal hypopharynx. Findings similar to the CT of 07/19/2022. Chest x-ray showed no acute cardiopulmonary process. COPD changes. Laboratory data showed WBC 4.4 hemoglobin 13.1 and platelets 144 Sodium 135 potassium 5.1 chloride 100 bicarb is 25 BUN 2019 creatinine 0.16 bl ood sugar 106 and magnesium 1.6. 01/11/2023 Patient is resting in bed. Awake alert oriented x3. Complains of pain and requesting IV pain medications. Patient is unable to tolerate oral diet. Incl uding liquids. Cough with clear to light yellow sputum production. Afebrile. No nausea or vomiting. Denies any abdominal pain. Patient is being current on IV Decadron laryngeal edema. Wheezing is much improved today. Laboratory test showed WBC 2.9 hemoglobin 11.9 and platelets 137 Other laboratory data reviewed. Objective - Vital Signs Vital signs: Vital Signs Temp 98.0 F 01/11/23 12:40 Pulse 92 01/11/23 12:40 Resp 16 01/11/23 12:40 BP 118/75 01/11/23 12:40 Pulse Ox 99 01/11/23 12:40 FiO2 Intake & Output 01/10/23 01/11/23 01/11/23 18:59 06:59 18:59 Weight 53.977 kg 52 kg Other: # Voids 1 - Exam PHYSICAL EXAMINATION: Patient is lying in the bed. No acute distress, awake alert and oriented.. HEENT: Normocephalic. Neck is supple. Pupils reactive. Nostrils clear. Oral cavity is moist. Neck reveals no JVD, carotid bruits, or thyromegaly. CHEST EXAMINATION: Trachea is central. Symmetrical expansion. Minimal expiratory wheeze. No rhonchi or crackles... CARDIAC: Normal S1, S2 with no gallops. No murmurs ABDOMEN: Soft. Bowel sounds present. Nontender. No organomegaly. No abdominal bruits. Extremities: reveal no edema. No clubbing or cyanosis Neurologically awake, alert, oriented x3 with well-coordinated movements. No focal deficits noted Skin: No skin lesions. Patient has bruising around the neck. Psychiatric: Coperative. Nonsuicidal Musculoskeletal: No joint swelling or deformity. Normal range of motion. - Labs CBC & Chem 7: 01/12/23 06:05 01/12/23 06:05 Labs: Abnormal Lab Results - Last 24 Hours (Table) 01/11/23 01/11/23 Range/Units 06:03 06:03 WBC 2.96 L (4.50-10.00) X 10*3/uL RBC 3.90 L (4.40-5.60) X 10*6/uL Hgb 11.9 L (13.0-17.0) d/dL Hct 34.5 L (39.6-50.0) % Plt Count 137 L (140-440) X 10*3/uL MPV 8.7 L (9.5-12.2) FL Lymphocytes # 0.28 L (0.90-5.00) X 10*3/uL Monocytes # 0.16 L (0.20-1.00) X 10*3/uL Eosinophils # 0 L (0.04-0.35) X 10*3/uL BUN/Creatinine Ratio 25.00 H (12.00-20.00) Ratio Glucose 130 H (70-110) mg/dL Assessment and Plan Assessment: Shortness of breath secondary to acute COPD exacerbation. Suspected laryngeal edema Laryngeal cancer currently undergoing chemo and radiation therapy. Difficulty swallowing, decrease of oral intake and dehydration. Prior history of small cell carcinoma of the lung status post chemo/radiation in 2019 Light tobacco user and marijuana use DVT prophylaxis with Lovenox subcu GI prophylaxis with Protonix. Plan: Patient will be continued on IV hydration and encourage oral intake. IV steroids changed to Decadron 10 mg every 6 hourly. Continue with DuoNebs. Pulmonary is on board.. General surgery was consulted for possible PEG tube placement due to poor oral intake. IV fluids changed to D5 normal saline. Continue pain management with Dilaudid IV Ordered CBC and BMP tomorrow. Continue with pain management and follow-up closely. Time with Patient: Greater than 30
--- NOTE | 2023-01-12 20:31 | P.PN ---
Subjective Progress Note Date: 01/12/23 Patient is a 62-year-old male with a past medical history of small cell lung cancer status post chemo/radiation in 2020, recent diagnosis of laryngeal cancer currently undergoing 7 out of 7 weekly chemotherapy and radiation. Patient was sent to ER from radiation oncology due to dehydration. Patient was started IV hydration and patient started getting dyspneic. Patient denies any fever or chills. Cough with occasional lightish yellow sputum production. No nausea vomiting or diarrhea. No complaints of chest pain. Patient was sent to ER for further evaluation. Patient was found to be wheezing while in the ER and was given a dose of Decadron 10 mg IV x1. Patient states that he has been having shortness of breath for the past 1 week. He is unable to take any oral diet. Occasionally was able to swallow and chew. Patient was seen by ENT in the past but was dismissed from the practice after missing appointment. EKG on admission showed sinus tachycardia with short IN interval CT neck and chest showed some fullness of the larynx near the level of the esophageal sphincter. There is asymmetry of the airway in the distal hypopharynx. Findings similar to the CT of 07/19/2022. Chest x-ray showed no acute cardiopulmonary process. COPD changes. Laboratory data showed WBC 4.4 hemoglobin 13.1 and platelets 144 Sodium 135 potassium 5.1 chloride 100 bicarb is 25 BUN 2019 creatinine 0.16 bl ood sugar 106 and magnesium 1.6. 01/11/2023 Patient is resting in bed. Awake alert oriented x3. Complains of pain and requesting IV pain medications. Patient is unable to tolerate oral diet. Incl uding liquids. Cough with clear to light yellow sputum production. Afebrile. No nausea or vomiting. Denies any abdominal pain. Patient is being current on IV Decadron laryngeal edema. Wheezing is much improved today. Laboratory test showed WBC 2.9 hemoglobin 11.9 and platelets 137 Other laboratory data reviewed. 01/12/2023 Patient is resting in the bed. Awake alert and oriented x3. No complaints of chest pain or shortness of breath today. Wheezing is almost resolved. No complaints of abdominal pain. Patient is still having cough with clear to light yellowish fluid. Patient is afebrile. No headache or dizziness or lightheadedness. Laboratory showed WBC 4.05, hemoglobin 11.0 and platelets 169. BUN 17.9 and creatinine 0.6 Decadron changed to 6 mg IV daily. Patient is scheduled for PEG tube placement tomorrow. Patient is being currently on D5 normal saline at 75 cc/h. Pain is fairly controlled with IV Dilaudid. Current medications reviewed. Objective - Vital Signs Vital signs: Vital Signs Temp 97.9 F 01/12/23 19:35 Pulse 80 01/12/23 20:25 Resp 16 01/12/23 19:48 BP 115/70 01/12/23 19:35 Pulse Ox 99 01/12/23 19:35 FiO2 - Exam PHYSICAL EXAMINATION: Patient is lying in the bed. No acute distress, awake alert and oriented.. HEENT: Normocephalic. Neck is supple. Pupils reactive. Nostrils clear. Oral cavity is moist. Neck reveals no JVD, carotid bruits, or thyromegaly. CHEST EXAMINATION: Trachea is central. Symmetrical expansion. Minimal expiratory wheeze. No rhonchi or crackles... CARDIAC: Normal S1, S2 with no gallops. No murmurs ABDOMEN: Soft. Bowel sounds present. Nontender. No organomegaly. No abdominal bruits. Extremities: reveal no edema. No clubbing or cyanosis Neurologically awake, alert, oriented x3 with well-coordinated movements. No focal deficits noted Skin: No skin lesions. Patient has bruising around the neck. Psychiatric: Coperative. Nonsuicidal Musculoskeletal: No joint swelling or deformity. Normal range of motion. - Labs CBC & Chem 7: 01/12/23 06:05 01/12/23 06:05 Labs: Abnormal Lab Results - Last 24 Hours (Table) 01/12/23 01/12/23 Range/Units 06:05 06:05 WBC 4.05 L (4.50-10.00) X 10*3/uL RBC 3.68 L (4.40-5.60) X 10*6/uL Hgb 11.0 L (13.0-17.0) d/dL Hct 33.2 L (39.6-50.0) % MPV 8.8 L (9.5-12.2) [place] Lymphocytes # 0.46 L (0.90-5.00) X 10*3/uL Eosinophils # 0 L (0.04-0.35) X 10*3/uL BUN/Creatinine Ratio 29.83 H (12.00-20.00) Ratio Glucose 127 H (70-110) mg/dL Assessment and Plan Assessment: Suspected laryngeal edema Shortness of breath secondary to acute COPD exacerbation. wheezing improved now Laryngeal cancer currently undergoing chemo and radiation therapy. Difficulty swallowing, decrease of oral intake and dehydration. Prior history of small cell carcinoma of the lung status post chemo/radiation in 2019 Light tobacco user and marijuana use DVT prophylaxis with Lovenox subcu GI prophylaxis with Protonix. Plan: Patient will be continued on IV hydration and encourage oral intake. IV steroids changed to Decadron 10 mg every 6 hourly. Continue with DuoNebs. Pulmonary is on board.. General surgery was consulted for possible PEG tube placement due to poor oral intake. IV fluids changed to D5 normal saline. Continue pain management with Dilaudid IV Ordered CBC and BMP tomorrow. Continue with pain management and follow-up closely. Patient is scheduled for PEG tube placement tomorrow. Time with Patient: Greater than 30
[2023-01-13] MEDS: dexAMETHasone ORAL SOLUTION 4 MG/ML VIAL PO SCH ×3 (06:05→18:28)
[2023-01-13] MEDS: DEXTROSE 5%-0.9% NACL 1,000 ML IV SCH ×2 (06:07→22:15)
[2023-01-13 06:25] LABS: HCT 33.2 % (39.0-53.0); HGB 11.6 gm/dL (13.0-17.5); MCH 31.6 pg (25.0-35.0); MCHC 34.8 g/dL (31.0-37.0); MCV 90.8 fL (80.0-100.0); Mean Platelet Volume 7.1; Platelet Count 199 k/uL (150-450); RBC 3.66 m/uL (4.30-5.90)
[2023-01-13 06:37] LABS: African American GFR (CKD) >90 (>60 ml/min/1.73 sqM); Anion Gap 8 mmol/L; Blood Urea Nitrogen 20 mg/dL (9-20); Calcium 8.7 mg/dL (8.4-10.2); Carbon Dioxide 25 mmol/L (22-30); Chloride 104 mmol/L (98-107); Glucose 110 mg/dL (74-99); Non-African American GFR(CKD) >90 (>60 ml/min/1.73 sqM); Potassium 4.8 mmol/L (3.5-5.1); Sodium 137 mmol/L (137-145)
[2023-01-13] MEDS: ENOXAPARIN 40 MG/0.4 ML SYRINGE SQ SCH (07:25)
[2023-01-13] MEDS: IPRATROPIUM-ALBUTEROL 3 ML NEB INHALATION SCH ×4 (07:35→19:57)
[2023-01-13] MEDS: SYMBICORT 160-4.5 MCG INHALER INHALATION SCH ×2 (07:35→19:57)
--- NOTE | 2023-01-13 08:31 | P.PN ---
Subjective Progress Note Date: 01/13/23 I am seeing this patient in consultation today 01/11/2023 for acute shortness of breath following radiation treatment. 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 Patient reportedly received radiation therapy yesterday morning. He had been feeling short of breath over the last week, but this significantly worsened after the radiation treatment. Patient states he felt like his throat was "closing up". Patient had received 10 mg of Decadron in the emergency room. On my evaluation, the patient is currently sitting up in bed, on room air, in no acute distress. No obvious significant stridor on evaluation. CT of the neck showed some fullness of the larynx near the level of esophageal sphincter. There is asymmetry of the airway and the distal hypopharynx, but findings are similar to CT back in June,. He is very rhonchorous to auscultation. He does have a persistent cough, with mostly clear sputum production. Denies any fevers, hemoptysis, chest pain. Chest x-ray on arrival showed no acute cardiopulmonary process. CBC on arrival was unremarkable. BMP on arrival shows sodium 135, potassium 5.1, chloride 101, serum bicarb 25, BUN 22, creatinine 0.62, glucose 106. Negative for influenza, RSV, COVID-19. Patient is being admitted to the general medical floor for observation. The patient is seen today 01/12/2023 in follow-up on the regular medical floor. He is currently resting in bed. Awake and alert in no acute distress. He is maintaining good O2 saturations in the 90s on room air. He has D5 0.9 normal saline at 75 ML's per hour. The plan is for PEG tube placement. He is remaining nothing by mouth. He does have retained secretions that he suctions himself. He is continued on Symbicort, DuoNeb inhalations, Decadron. Lovenox for DVT prophylaxis. His pain is well controlled. The patient is seen today 01/13/2023 in follow-up on the regular medical floor. He is sitting up in bed. Awake and alert in no acute distress. He is maintaining good O2 saturations in the upper 90s on room air. He's been afebrile. Hemodynamically stable. White count 4.0. Hemoglobin 11.6. Platelets 199. Sodium 137. Potassium 4.8. Bicarb 25. BUN 20. Creatinine 0.56. Glucose 110. He is awaiting PEG tube placement today. Currently nothing by mouth. He is currently on Decadron 6 mg IV daily. Lovenox for DVT prophylaxis. His pain is well controlled. He has lactated Ringer's at 20 ML's per hour. Continued on Symbicort and DuoNeb inhalations. Objective - Vital Signs Vital signs: Vital Signs Temp 97.9 F 01/13/23 02:33 Pulse 84 01/13/23 07:45 Resp 18 01/13/23 02:33 BP 127/73 01/13/23 02:33 Pulse Ox 100 01/13/23 07:35 FiO2 - Exam GENERAL EXAM: Alert, pleasant 62-year-old male, cachectic, on room air, comfortable in no apparent distress. HEAD: Normocephalic and atraumatic EYES: Normal reaction of pupils, equal size. NOSE: Clear with pink turbinates. THROAT: No erythema or exudates. NECK: No masses, no JVD. CHEST: No chest wall deformity. LUNGS: No obvious stridor on auscultation of the neck. Equal air entry with diffuse rhonchi. CVS: S1 and S2 normal with no audible murmur, regular rhythm. No extra heart sounds ABDOMEN: No hepatosplenomegaly, active bowel sounds, no guarding or rigidity. SPINE: No scoliosis or deformity SKIN: There is open wound and erythema around the neck CENTRAL NERVOUS SYSTEM: No focal deficits, tone is normal in all 4 extremities. EXTREMITIES: There is no peripheral edema, clubbing, or cyanosis. Peripheral pulses are intact. - Labs CBC & Chem 7: 01/13/23 05:59 01/13/23 05:59 Labs: Abnormal Lab Results - Last 24 Hours (Table) 01/12/23 01/12/23 01/13/23 Range/Units 06:05 06:05 05:59 WBC 4.05 L (4.50-10.00) X 10*3/uL RBC 3.68 L 3.66 L (4.40-5.60) X 10*6/uL Hgb 11.0 L 11.6 L (13.0-17.0) d/dL Hct 33.2 L 33.2 L (39.6-50.0) % MPV 8.8 L (9.5-12.2) FL Lymphocytes # 0.46 L (0.90-5.00) X 10*3/uL Eosinophils # 0 L (0.04-0.35) X 10*3/uL Creatinine (0.66-1.25) mg/dL BUN/Creatinine Ratio 29.83 H (12.00-20.00) Ratio Glucose 127 H (70-110) mg/dL 01/13/23 Range/Units 05:59 WBC (4.50-10.00) X 10*3/uL RBC (4.40-5.60) X 10*6/uL Hgb (13.0-17.0) d/dL Hct (39.6-50.0) % MPV (9.5-12.2) FL Lymphocytes # (0.90-5.00) X 10*3/uL Eosinophils # (0.04-0.35) X 10*3/uL Creatinine 0.56 L (0.66-1.25) mg/dL BUN/Creatinine Ratio (12.00-20.00) Ratio Glucose 110 H (70-110) mg/dL Assessment and Plan Assessment: Laryngeal cancer currently undergoing chemo/radiation therapy. There were concerns of possible laryngeal edema, patient did receive 10 mg of Decadron in the emergency room. CT of the neck showed some fullness of the larynx near the level of esophageal sphincter. There is asymmetry of the airway and the distal hypopharynx, but findings are similar to CT back in June,. Dysphagia secondary to above, PEG tube placement today Suspected acute COPD exacerbation, chest x-ray showed no acute cardiopulmonary process. Negative for influenza, RSV, COVID-19 Acute dyspnea, secondary to above History of lung cancer status post chemo/radiation Chronic ongoing tobacco dependence Plan: The patient was seen and evaluated Currently stable and on room air Plan is for PEG tube placement today Remains nothing by mouth for now We will continue to follow This patient was seen independently by the nurse practitioner I have personally seen and examined the patient, performed the documentation and the assessment and plan as written. Number of minutes spent on the visit: 24.
[2023-01-13] MEDS: SALT AND SODA MOUTHWASH 1,000 ML PO SCH ×3 (08:42→21:15)
[2023-01-13] MEDS: HYDROcodone/APAP 15 ML SOLUTION PO PRN ×3 (08:43→21:13)
[2023-01-13] MEDS: MAG HYDROX/AL HYDROX/SIMETH 30 ML, LIDOCAINE VISCOUS 2% 30 ML, diphenhydrAMINE ELIXIR 7... PO SCH ×16 (08:44→21:12)
[2023-01-13] MEDS: DEXAMETHASONE SOD PHOSPHATE 10 MG/ML 1 ML VIAL IVP SCH (08:52)
--- NOTE | 2023-01-13 12:23 | P.PN ---
Subjective Progress Note Date: 01/13/23 CHIEF COMPLAINT: Dysphagia HISTORY OF PRESENT ILLNESS: Patient is scheduled for EGD with PEG tube placement today. Patient failed swallow eval. He has been having dysphagia. Afebrile. WBC 4.0 Hgb 11.6 platelets 199 Na 137, K 4.8 PHYSICAL EXAM: VITAL SIGNS: Reviewed. GENERAL: Well-developed in no acute distress. ABDOMEN: Soft. Nondistended. Nontender. NEUROLOGIC: Alert and oriented. Cranial nerves II through XII grossly intact. ASSESSMENT: 1. Dysphagia 2. Failed swallow eval 3. Laryngeal carcinoma PLAN: -Patient scheduled for EGD with PEG tube placement today with Dr. Lopez Physician Supervisor Power Reactor note has been reviewed by physician. Signing provider agrees with the documented findings, assessment, and plan of care. Objective - Vital Signs Vital signs: Vital Signs Temp 97.8 F 01/13/23 08:25 Pulse 80 01/13/23 12:05 Resp 12 01/13/23 08:25 BP 125/73 01/13/23 08:25 Pulse Ox 94 L 01/13/23 08:25 FiO2 - Labs CBC & Chem 7: 01/13/23 05:59 01/13/23 05:59 Labs: Abnormal Lab Results - Last 24 Hours (Table) 01/13/23 01/13/23 Range/Units 05:59 05:59 RBC 3.66 L (4.30-5.90) m/uL Hgb 11.6 L (13.0-17.5) gm/dL Hct 33.2 L (39.0-53.0) % Creatinine 0.56 L (0.66-1.25) mg/dL Glucose 110 H (74-99) mg/dL
[2023-01-13] MEDS ORDERED: IV FLUID CONTINUATION 1,000 ML IV ONE (12:24)
[2023-01-13] MEDS ORDERED: LIDOCAINE 1% INJ 10MG/ML (20 ML MDV) ONE (12:30)
[2023-01-13] MEDS ORDERED: PROPOFOL 10 MG/ML 20 ML VIAL IV ONE (12:30)
--- NOTE | 2023-01-13 12:45 | P.OP ---
Date of Procedure: 01/13/23 Preoperative Diagnosis: Protein calorie malnutrition Postoperative Diagnosis: Protein calorie nutrition Procedure(s) Performed: PEG tube placement Anesthesia: MAC Surgeon: Pedro Lopez Pathology: none sent Condition: stable Disposition: PACU Description of Procedure: The patient's placed on the bed in the supine position. The patient received general anesthesia. Next the gastroscope placed oropharynx passed in the esophagus and stomach. There is no evidence of any outlet obstruction. Stomach was insufflated with air. The light reflux seen the anterior abdominal wall. The abdomen was prepped and draped usual fashion. The skin was incised. And the needles placed and stomach under direct visualization. The needle was snared. And the wires placed through the needle and the wire was snared and brought the oropharynx. The PEG tube was placed over top the wire brought down to the stomach. The PEG tube was secured. At the 3 cm judson. The one-piece bolster was used. Patient tolerated procedure well.
--- NOTE | 2023-01-13 13:03 | P.PN ---
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 Patient was sent to ER from radiation oncology due to dehydration. Patient was started IV hydration and patient started getting dyspneic. Patient denies any fever or chills. Cough with occasional lightish yellow sputum production. No nausea vomiting or diarrhea. No complaints of chest pain. Patient was sent to ER for further evaluation. Patient was found to be wheezing while in the ER and was given a dose of Decadron 10 mg IV x1. Patient states that he has been having shortness of breath for the past 1 week. He is unable to take any oral diet. Occasionally was able to swallow and chew. Patient was seen by ENT in the past but was dismissed from the practice after missing appointment. EKG on admission showed sinus tachycardia with short MT interval CT neck and chest showed some fullness of the larynx near the level of the esophageal sphincter. There is asymmetry of the airway in the distal hypopharynx. Findings similar to the CT of 07/19/2022. Chest x-ray showed no acute cardiopulmonary process. COPD changes. Laboratory data showed WBC 4.4 hemoglobin 13.1 and platelets 144 Sodium 135 potassium 5.1 chloride 100 bicarb is 25 BUN 2019 creatinine 0.16 blo od sugar 106 and magnesium 1.6. 01/11/2023 Patient is resting in bed. Awake alert oriented x3. Complains of pain and requesting IV pain medications. Patient is unable to tolerate oral diet. Inclu ding liquids. Cough with clear to light yellow sputum production. Afebrile. No nausea or vomiting. Denies any abdominal pain. Patient is being current on IV Decadron laryngeal edema. Wheezing is much improved today. Laboratory test showed WBC 2.9 hemoglobin 11.9 and platelets 137 Other laboratory data reviewed. 01/12/2023 Patient is resting in the bed. Awake alert and oriented x3. No complaints of chest pain or shortness of breath today. Wheezing is almost resolved. No complaints of abdominal pain. Patient is still having cough with clear to light yellowish fluid. Patient is afebrile. No headache or dizziness or lightheadedness. Laboratory showed WBC 4.05, hemoglobin 11.0 and platelets 169. BUN 17.9 and creatinine 0.6 Decadron changed to 6 mg IV daily. Patient is scheduled for PEG tube placement tomorrow. Patient is being currently on D5 normal saline at 75 cc/h. Pain is fairly controlled with IV Dilaudid. 01/13. Patient seen and examined. Blood work done this morning showed WBC 4, hemoglobin 11.6, platelet, 99, sodium 137, potassium 4.8, BUN 20, creatinine 0.56. Going for PEG tube placement today REVIEW OF SYSTEMS: CONSTITUTIONAL: No fever, no malaise,. CARDIOVASCULAR: No chest pain, no palpitations, no syncope. PULMONARY: No shortness of breath, no cough, GASTROINTESTINAL: No diarrhea, no nausea, no vomiting, no abdominal pain. NEUROLOGICAL: No headaches, no weakness, PHYSICAL EXAMINATION: GENERAL: The patient is alert and oriented x3, not in any acute distress. Chronically ill-looking HEENT: Pupils are round and equally reacting to light. EOMI. No scleral icterus. No conjunctival pallor. Normocephalic, atraumatic. No pharyngeal erythema. No thyromegaly. CARDIOVASCULAR: S1 and S2 present. No murmurs, rubs, or gallops. PULMONARY: Chest is clear to auscultation, no wheezing or crackles. ABDOMEN: Soft, nontender, nondistended, normoactive bowel sounds. No palpable organomegaly. MUSCULOSKELETAL: No joint swelling or deformity. EXTREMITIES: No cyanosis, clubbing, or pedal edema. NEUROLOGICAL: Gross neurological examination did not reveal any focal deficits. SKIN: No rashes. Assessment and plan Suspected laryngeal edema acute COPD exacerbation Laryngeal cancer currently undergoing chemo and radiation therapy. Difficulty swallowing, decrease of oral intake and dehydration. Prior history of small cell carcinoma of the lung status post chemo/radiation in 2019 Light tobacco user and marijuana use Plan: Monitor vital signs Monitor CBC Monitor CMP Patient will be continued on IV hydration and encourage oral intake. Continue IV Decadron 10 mg daily Continue with pain management and follow-up closely. Patient is scheduled for PEG tube placement today Labs and medication were reviewed.. Continue same treatment. Continue with symptomatic treatment. Resume home medication. Monitor labs and vitals. DVT and GI prophylaxis. Further recommendations as per clinical course of the patient Dictation was produced using [employer] dictation software. please excuse any gra mmatical, word or spelling errors. Objective - Vital Signs Vital signs: Vital Signs Temp 97.8 F 01/13/23 08:25 Pulse 78 01/13/23 08:25 Resp 12 01/13/23 08:25 BP 125/73 01/13/23 08:25 Pulse Ox 94 L 01/13/23 08:25 FiO2 - Labs CBC & Chem 7: 01/13/23 05:59 01/13/23 05:59 Labs: Abnormal Lab Results - Last 24 Hours (Table) 01/12/23 01/12/23 01/13/23 Range/Units 06:05 06:05 05:59 WBC 4.05 L (4.50-10.00) X 10*3/uL RBC 3.68 L 3.66 L (4.40-5.60) X 10*6/uL Hgb 11.0 L 11.6 L (13.0-17.0) d/dL Hct 33.2 L 33.2 L (39.6-50.0) % MPV 8.8 L (9.5-12.2) FL Lymphocytes # 0.46 L (0.90-5.00) X 10*3/uL Eosinophils # 0 L (0.04-0.35) X 10*3/uL Creatinine (0.66-1.25) mg/dL BUN/Creatinine Ratio 29.83 H (12.00-20.00) Ratio Glucose 127 H (70-110) mg/dL 01/13/23 Range/Units 05:59 WBC (4.50-10.00) X 10*3/uL RBC (4.40-5.60) X 10*6/uL Hgb (13.0-17.0) d/dL Hct (39.6-50.0) % MPV (9.5-12.2) FL Lymphocytes # (0.90-5.00) X 10*3/uL Eosinophils # (0.04-0.35) X 10*3/uL Creatinine 0.56 L (0.66-1.25) mg/dL BUN/Creatinine Ratio (12.00-20.00) Ratio Glucose 110 H (70-110) mg/dL
[2023-01-13] MEDS: LACTATED RINGERS 1,000 ML IV SCH (13:16)
--- NOTE | 2023-01-13 13:33 | P.PN ---
Subjective Progress Note Date: 01/13/23 Principal diagnosis: Radiation esophagitis, also inflammation of the trachea secondary to radiation, on treatment for larynx malignancy In follow-up today patient is reporting some relief of the significant pain with swallowing since starting multiple oral supportive medications, he is not having that feeling of shortness of breath/inability to get a breath. He is having his PEG tube inserted today. Objective - Vital Signs Vital signs: Vital Signs Temp 97.8 F 01/13/23 08:25 Pulse 80 01/13/23 12:05 Resp 12 01/13/23 08:25 BP 125/73 01/13/23 08:25 Pulse Ox 94 L 01/13/23 08:25 FiO2 Intake & Output 01/12/23 01/13/23 01/13/23 18:59 06:59 18:59 Intake Total 200 Balance 200 Weight 52 kg Intake: IV 200 - Constitutional General appearance: Present: cooperative, no acute distress, thin - EENT Eyes: Present: anicteric sclerae, EOMI ENT: Present: hearing grossly normal - Respiratory Respiratory: bilateral: CTA - Cardiovascular Rhythm: regular Heart sounds: normal: S1, S2 Abnormal Heart Sounds: Absent: systolic murmur, diastolic murmur, rub, S3 Gallop, S4 Gallop, click, other - Peripheral edema leg Peripheral Edema: bilateral: None - Gastrointestinal General gastrointestinal: Present: normal bowel sounds, soft - Neurologic Neurologic: Present: CNII-XII intact - Musculoskeletal Musculoskeletal: Present: strength equal bilaterally - Psychiatric Psychiatric: Present: A&O x's 3, appropriate affect, intact judgment & insight - Labs CBC & Chem 7: 01/13/23 05:59 01/13/23 05:59 Labs: Abnormal Lab Results - Last 24 Hours (Table) 01/13/23 01/13/23 Range/Units 05:59 05:59 RBC 3.66 L (4.30-5.90) m/uL Hgb 11.6 L (13.0-17.5) gm/dL Hct 33.2 L (39.0-53.0) % Creatinine 0.56 L (0.66-1.25) mg/dL Glucose 110 H (74-99) mg/dL Assessment and Plan (1) Radiation-induced esophagitis Current Visit: Yes Status: Acute Priority: High Code(s): K20.80 - OTHER ESOPHAGITIS WITHOUT BLEEDING; T66.XXXA - RADIATION SICKNESS, UNSPECIFIED, INITIAL ENCOUNTER SNOMED Code(s): 782352924 (2) Squamous cell cancer of hypopharynx Current Visit: Yes Status: Acute Code(s): C13.9 - MALIGNANT NEOPLASM OF HYPOPHARYNX, UNSPECIFIED SNOMED Code(s): 957069434 Plan: Radiation-induced esophagitis, possibly some Inflammation of the trachea secondary to the radiation -Kools with dex for odynophagia, liquid norco for throat/trachea pain-patient reporting a modest improvement in symptoms. Continue these medications -Agree with hydration for severe poor oral intake -PEG site today. Patient will require nutritional support for about 4-6 weeks. Pt has 1 more treatment, 6 more days of radiation, then it will take about 3-4 weeks to recover. -Patient encouraged to continue sips of water as tolerated -D/W health physicist as pt will need home care for PEG -Dietitian consulted to determine feed formula. Pt will need Rx for the same -Medical Oncologist discussed the case with Radiation Oncologist attests: I have seen and examined pt, performed H&P, developed impression and plan of care. Discussed with dictator. Agree with documentation, dictated as a scribe.
[2023-01-14] MEDS: HYDROmorphone 0.5 MG/0.5 ML SYRINGE IVP PRN ×5 (00:01→18:29)
[2023-01-14] MEDS: dexAMETHasone ORAL SOLUTION 4 MG/ML VIAL PO SCH ×5 (00:24→23:52)
[2023-01-14] MEDS: HYDROcodone/APAP 15 ML SOLUTION PO PRN ×3 (06:04→21:25)
[2023-01-14] MEDS: IPRATROPIUM-ALBUTEROL 3 ML NEB INHALATION SCH ×4 (07:46→20:05)
[2023-01-14] MEDS: SYMBICORT 160-4.5 MCG INHALER INHALATION SCH ×2 (07:47→20:05)
[2023-01-14] MEDS: MAG HYDROX/AL HYDROX/SIMETH 30 ML, LIDOCAINE VISCOUS 2% 30 ML, diphenhydrAMINE ELIXIR 7... PO SCH ×16 (08:48→21:26)
[2023-01-14] MEDS: DEXAMETHASONE SOD PHOSPHATE 10 MG/ML 1 ML VIAL IVP SCH (08:48)
[2023-01-14] MEDS: ENOXAPARIN 40 MG/0.4 ML SYRINGE SQ SCH (08:49)
[2023-01-14] MEDS: SALT AND SODA MOUTHWASH 1,000 ML PO SCH ×3 (08:49→21:32)
[2023-01-14] MEDS: DEXTROSE 5%-0.9% NACL 1,000 ML IV SCH ×2 (11:00→23:49)
[2023-01-14] MEDS: LACTATED RINGERS 1,000 ML IV SCH (12:23)
--- NOTE | 2023-01-14 13:00 | P.PN ---
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 Patient was sent to ER from radiation oncology due to dehydration. Patient was started IV hydration and patient started getting dyspneic. Patient denies any fever or chills. Cough with occasional lightish yellow sputum production. No nausea vomiting or diarrhea. No complaints of chest pain. Patient was sent to ER for further evaluation. Patient was found to be wheezing while in the ER and was given a dose of Decadron 10 mg IV x1. Patient states that he has been having shortness of breath for the past 1 week. He is unable to take any oral diet. Occasionally was able to swallow and chew. Patient was seen by ENT in the past but was dismissed from the practice after missing appointment. EKG on admission showed sinus tachycardia with short MA interval CT neck and chest showed some fullness of the larynx near the level of the esophageal sphincter. There is asymmetry of the airway in the distal hypopharynx. Findings similar to the CT of 07/19/2022. Chest x-ray showed no acute cardiopulmonary process. COPD changes. Laboratory data showed WBC 4.4 hemoglobin 13.1 and platelets 144 Sodium 135 potassium 5.1 chloride 100 bicarb is 25 BUN 2019 creatinine 0.16 blo od sugar 106 and magnesium 1.6. 01/11/2023 Patient is resting in bed. Awake alert oriented x3. Complains of pain and requesting IV pain medications. Patient is unable to tolerate oral diet. Inclu ding liquids. Cough with clear to light yellow sputum production. Afebrile. No nausea or vomiting. Denies any abdominal pain. Patient is being current on IV Decadron laryngeal edema. Wheezing is much improved today. Laboratory test showed WBC 2.9 hemoglobin 11.9 and platelets 137 Other laboratory data reviewed. 01/12/2023 Patient is resting in the bed. Awake alert and oriented x3. No complaints of chest pain or shortness of breath today. Wheezing is almost resolved. No complaints of abdominal pain. Patient is still having cough with clear to light yellowish fluid. Patient is afebrile. No headache or dizziness or lightheadedness. Laboratory showed WBC 4.05, hemoglobin 11.0 and platelets 169. BUN 17.9 and creatinine 0.6 Decadron changed to 6 mg IV daily. Patient is scheduled for PEG tube placement tomorrow. Patient is being currently on D5 normal saline at 75 cc/h. Pain is fairly controlled with IV Dilaudid. 01/13. Patient seen and examined. Blood work done this morning showed WBC 4, hemoglobin 11.6, platelet, 99, sodium 137, potassium 4.8, BUN 20, creatinine 0.56. Going for PEG tube placement today 01/14. Patient seen and examined. Patient PEG tube placed yesterday, plan for patient to be started on tube feeding today REVIEW OF SYSTEMS: CONSTITUTIONAL: No fever, no malaise,. CARDIOVASCULAR: No chest pain, no palpitations, no syncope. PULMONARY: No shortness of breath, no cough, GASTROINTESTINAL: No diarrhea, no nausea, no vomiting, no abdominal pain. NEUROLOGICAL: No headaches, no weakness, PHYSICAL EXAMINATION: GENERAL: The patient is alert and oriented x3, not in any acute distress. Chronically ill-looking HEENT: Pupils are round and equally reacting to light. EOMI. No scleral icterus. No conjunctival pallor. Normocephalic, atraumatic. No pharyngeal erythema. No thyromegaly. CARDIOVASCULAR: S1 and S2 present. No murmurs, rubs, or gallops. PULMONARY: Chest is clear to auscultation, no wheezing or crackles. ABDOMEN: Soft, nontender, nondistended, normoactive bowel sounds. No palpable organomegaly. PEG tube seen MUSCULOSKELETAL: No joint swelling or deformity. EXTREMITIES: No cyanosis, clubbing, or pedal edema. NEUROLOGICAL: Gross neurological examination did not reveal any focal deficits. SKIN: No rashes. Assessment and plan Suspected laryngeal edema acute COPD exacerbation Laryngeal cancer currently undergoing chemo and radiation therapy. Difficulty swallowing, decrease of oral intake and dehydration. Prior history of small cell carcinoma of the lung status post chemo/radiation in 2019 Light tobacco user and marijuana use Plan: Monitor vital signs Monitor CBC Monitor CMP Patient will be continued on IV hydration and encourage oral intake. Continue IV Decadron 10 mg daily Continue with pain management and follow-up closely. Status post PEG tube placement , start tube feeding Hematology oncology follow-up Labs and medication were reviewed.. Continue same treatment. Continue with symptomatic treatment. Resume home medication. Monitor labs and vitals. DVT and GI prophylaxis. Further recommendations as per clinical course of the patient Dictation was produced using [employer] dictation software. please excuse any grammatical, word or spelling errors. Objective - Vital Signs Vital signs: Vital Signs Temp 98.4 F 01/14/23 07:44 Pulse 80 01/14/23 11:23 Resp 16 01/14/23 07:44 BP 127/74 01/14/23 07:44 Pulse Ox 99 01/14/23 07:49 FiO2 Intake & Output 01/13/23 01/14/23 01/14/23 18:59 06:59 18:59 Intake Total 200 Output Total 225 Balance 200 -225 Weight 52 kg 52.5 kg Intake: IV 200 Output: Urine 225 Other: Voiding Method Toilet Urinal # Voids 1 - Labs CBC & Chem 7: 01/13/23 05:59 01/13/23 05:59
--- NOTE | 2023-01-14 13:20 | P.PN ---
Subjective Progress Note Date: 01/14/23 CHIEF COMPLAINT: Dysphagia HISTORY OF PRESENT ILLNESS: Patient postop day #1 status post EGD and PEG tube placement. He is to start tube feedings this afternoon. Denies any abdominal pain. Denies any nausea or vomiting. Afebrile. PHYSICAL EXAM: VITAL SIGNS: Reviewed. GENERAL: Well-developed in no acute distress. ABDOMEN: Soft. Nondistended. Nontender. PEG tube site clean dry and intact NEUROLOGIC: Alert and oriented. Cranial nerves II through XII grossly intact. ASSESSMENT: 1. Dysphagia status post PEG tube placement 2. Failed swallow eval 3. Laryngeal carcinoma PLAN: -Consult dietitian to initiate tube feeds -Tube feed titration per dietitian recommendations -Patient can have food orally from surgical standpoint 24 hours after peg tube is placed. Clarify with speech therapy regarding possible diet Physician Manufacturing Business Analyst note has been reviewed by physician. Signing provider agrees with the documented findings, assessment, and plan of care. Objective - Vital Signs Vital signs: Vital Signs Temp 98.4 F 01/14/23 07:44 Pulse 81 01/14/23 07:59 Resp 16 01/14/23 07:44 BP 127/74 01/14/23 07:44 Pulse Ox 99 01/14/23 07:49 FiO2 Intake & Output 01/13/23 01/14/23 01/14/23 18:59 06:59 18:59 Intake Total 200 Output Total 225 Balance 200 -225 Weight 52 kg 52.5 kg Intake: IV 200 Output: Urine 225 Other: Voiding Method Toilet Urinal # Voids 1 - Labs CBC & Chem 7: 01/13/23 05:59 01/13/23 05:59
--- NOTE | 2023-01-14 16:02 | P.PN ---
Subjective Progress Note Date: 01/14/23 I am seeing this patient in consultation today 01/11/2023 for acute shortness of breath following radiation treatment. 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 Patient reportedly received radiation therapy yesterday morning. He had been feeling short of breath over the last week, but this significantly worsened after the radiation treatment. Patient states he felt like his throat was "closing up". Patient had received 10 mg of Decadron in the emergency room. On my evaluation, the patient is currently sitting up in bed, on room air, in no acute distress. No obvious significant stridor on evaluation. CT of the neck showed some fullness of the larynx near the level of esophageal sphincter. There is asymmetry of the airway and the distal hypopharynx, but findings are similar to CT back in June,. He is very rhonchorous to auscultation. He does have a persistent cough, with mostly clear sputum production. Denies any fevers, hemoptysis, chest pain. Chest x-ray on arrival showed no acute cardiopulmonary process. CBC on arrival was unremarkable. BMP on arrival shows sodium 135, potassium 5.1, chloride 101, serum bicarb 25, BUN 22, creatinine 0.62, glucose 106. Negative for influenza, RSV, COVID-19. Patient is being admitted to the general medical floor for observation. The patient is seen today 01/12/2023 in follow-up on the regular medical floor. He is currently resting in bed. Awake and alert in no acute distress. He is maintaining good O2 saturations in the 90s on room air. He has D5 0.9 normal saline at 75 ML's per hour. The plan is for PEG tube placement. He is remaining nothing by mouth. He does have retained secretions that he suctions himself. He is continued on Symbicort, DuoNeb inhalations, Decadron. Lovenox for DVT prophylaxis. His pain is well controlled. The patient is seen today 01/13/2023 in follow-up on the regular medical floor. He is sitting up in bed. Awake and alert in no acute distress. He is maintaining good O2 saturations in the upper 90s on room air. He's been afebrile. Hemodynamically stable. White count 4.0. Hemoglobin 11.6. Platelets 199. Sodium 137. Potassium 4.8. Bicarb 25. BUN 20. Creatinine 0.56. Glucose 110. He is awaiting PEG tube placement today. Currently nothing by mouth. He is currently on Decadron 6 mg IV daily. Lovenox for DVT prophylaxis. His pain is well controlled. He has lactated Ringer's at 20 ML's per hour. Continued on Symbicort and DuoNeb inhalations. The patient is seen today 01/14/2023 in follow-up on the regular medical floor. He is awake and alert in no acute distress. Resting comfortably in bed. Denies any worsening shortness of breath, cough or congestion. He did undergo PEG tube placement yesterday and the plan will be to start nutritional support today. He will be receiving Jevity 1.5 initial dose of 10 MLS per hour with a goal of 20 to ML's per hour. The patient is still needing one more treatment for his laryngeal cancer and 6 more days of radiation. He is continued on Decadron 6 mg daily. Continued on bronchodilators. Lovenox for DVT prophylaxis. Objective - Vital Signs Vital signs: Vital Signs Temp 98 F 01/14/23 14:42 Pulse 80 01/14/23 15:14 Resp 17 01/14/23 14:42 BP 138/86 01/14/23 14:42 Pulse Ox 98 01/14/23 14:42 FiO2 Intake & Output 01/13/23 01/14/23 01/14/23 18:59 06:59 18:59 Intake Total 200 Output Total 225 Balance 200 -225 Weight 52 kg 52.5 kg 52.5 kg Intake: IV 200 Output: Urine 225 Other: Voiding Method Toilet Urinal # Voids 1 - Exam GENERAL EXAM: Alert, pleasant 62-year-old male, on room air, comfortable in no apparent distress. HEAD: Normocephalic and atraumatic EYES: Normal reaction of pupils, equal size. NOSE: Clear with pink turbinates. THROAT: Positive for mild inflammation. NECK: No masses, no JVD. CHEST: No chest wall deformity. LUNGS: No obvious stridor on auscultation of the neck. Equal air entry with diffuse rhonchi. CVS: S1 and S2 normal with no audible murmur, regular rhythm. No extra heart sounds ABDOMEN: PEG tube exit site is clean and dry. No hepatosplenomegaly, active bowel sounds, no guarding or rigidity. SPINE: No scoliosis or deformity SKIN: There is open wound and erythema around the neck CENTRAL NERVOUS SYSTEM: No focal deficits, tone is normal in all 4 extremities. EXTREMITIES: There is no peripheral edema, clubbing, or cyanosis. Peripheral pulses are intact. - Labs CBC & Chem 7: 01/13/23 05:59 01/13/23 05:59 Assessment and Plan Assessment: Laryngeal cancer currently undergoing chemo/radiation therapy. There were concerns of possible laryngeal edema, patient did receive 10 mg of Decadron in the emergency room. CT of the neck showed some fullness of the larynx near the level of esophageal sphincter. There is asymmetry of the airway and the distal hypopharynx, but findings are similar to CT back in June,. Remains on Decadron 6 mg IV daily Dysphagia secondary to above, PEG tube placement done on 01/13/2023. The plan is to start Jevity tube feedings today Suspected acute COPD exacerbation, chest x-ray showed no acute cardiopulmonary process. Negative for influenza, RSV, COVID-19 Acute dyspnea, secondary to above History of lung cancer status post chemo/radiation Chronic ongoing tobacco dependence Plan: The patient was seen and evaluated Currently stable and on room air Received PEG tube placement yesterday Initiated on Jevity tube feeding Remains nothing by mouth for now We will continue to follow This patient was seen independently by the nurse practitioner I have personally seen and examined the patient, performed the documentation and the assessment and plan as written. Number of minutes spent on the visit: 20.
[2023-01-14 17:56] LABS: Glucose,Whole Blood 145 mg/dL (70-110)
--- NOTE | 2023-01-14 20:12 | P.PN ---
Subjective Progress Note Date: 01/14/23 Principal diagnosis: radiation esophagitis, COPD exac At today's visit patient is resting comfortably in bed. S/p PEG tube placement. Patient is tolerating tube feedings well. Denies nausea vomiting. Reports mild tenderness around insertion site. Denies abdominal pain. Objective - Vital Signs Vital signs: Vital Signs Temp 98.3 F 01/14/23 19:28 Pulse 67 01/14/23 19:28 Resp 17 01/14/23 19:28 BP 128/82 01/14/23 19:28 Pulse Ox 97 01/14/23 19:28 FiO2 Intake & Output 01/14/23 01/14/23 01/15/23 06:59 18:59 06:59 Output Total 225 Balance -225 Weight 52.5 kg 52.5 kg Output: Urine 225 Other: Voiding Method Toilet Urinal # Voids 1 - Constitutional General appearance: Present: no acute distress - EENT Eyes: Present: anicteric sclerae, EOMI ENT: Present: hearing grossly normal - Respiratory Details: breathing is even and unlabored - Cardiovascular Details: skin warm and dry - Gastrointestinal Gastrointestinal Comment(s): peg tube in situ - Integumentary Integumentary: Absent: cyanotic - Neurologic Neurologic: Present: CNII-XII intact - Musculoskeletal Musculoskeletal: Present: strength equal bilaterally - Psychiatric Psychiatric: Present: A&O x's 3, appropriate affect, intact judgment & insight - Labs CBC & Chem 7: 01/13/23 05:59 01/13/23 05:59 Labs: Abnormal Lab Results - Last 24 Hours (Table) 01/14/23 Range/Units 17:54 POC Glucose (mg/dL) 145 H (70-110) mg/dL Assessment and Plan (1) Radiation-induced esophagitis Current Visit: Yes Status: Acute Priority: High Code(s): K20.80 - OTHER ESOPHAGITIS WITHOUT BLEEDING; T66.XXXA - RADIATION SICKNESS, UNSPECIFIED, INITIAL ENCOUNTER SNOMED Code(s): 688096014 (2) S/P percutaneous endoscopic gastrostomy (PEG) tube placement Current Visit: Yes Status: Acute Priority: Medium Code(s): Z93.1 - GASTROSTOMY STATUS SNOMED Code(s): 291440905 Plan: Radiation-induced esophagitis, possibly some Inflammation of the trachea secondary to the radiation -Kools with dex for odynophagia, liquid norco for throat/trachea pain-patient reporting a modest improvement in symptoms. Continue these medications -Agree with hydration for severe poor oral intake -S/p peg tube placement, no acute issues. Tolerating tube feedings well. Patient will require nutritional support for about 4-6 weeks. -Plan was for 1 more cycle of treatment. Spoke with primary oncologist, Dr Ramos, will cancel last cycle. Rad onc plans for for 6 more fractions of treatment, then it will take about 3-4 weeks to recover. -Patient NPO, swallow study failed -D/W tassel clipper as pt will need home care for PEG -Dietitian folowing for tube feed recommendations. Pt will need Rx for the same -Case has been discussed with Radiation Oncologist -Clinic f/u will be scheduled upon discharge
[2023-01-15 00:34] LABS: Glucose,Whole Blood 134 mg/dL (70-110)
[2023-01-15] MEDS: HYDROcodone/APAP 15 ML SOLUTION PO PRN ×3 (03:41→19:34)
[2023-01-15 06:20] LABS: Glucose,Whole Blood 104 mg/dL (70-110)
[2023-01-15 08:08] LABS: Glucose,Whole Blood 115 mg/dL (70-110)
[2023-01-15] MEDS: IPRATROPIUM-ALBUTEROL 3 ML NEB INHALATION SCH ×4 (08:22→19:36)
[2023-01-15] MEDS: SYMBICORT 160-4.5 MCG INHALER INHALATION SCH ×2 (08:22→19:36)
--- NOTE | 2023-01-15 08:34 | P.PN ---
Subjective Progress Note Date: 01/15/23 I am seeing this patient in consultation today 01/11/2023 for acute shortness of breath following radiation treatment. 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 Patient reportedly received radiation therapy yesterday morning. He had been feeling short of breath over the last week, but this significantly worsened after the radiation treatment. Patient states he felt like his throat was "closing up". Patient had received 10 mg of Decadron in the emergency room. On my evaluation, the patient is currently sitting up in bed, on room air, in no acute distress. No obvious significant stridor on evaluation. CT of the neck showed some fullness of the larynx near the level of esophageal sphincter. There is asymmetry of the airway and the distal hypopharynx, but findings are similar to CT back in June,. He is very rhonchorous to auscultation. He does have a persistent cough, with mostly clear sputum production. Denies any fevers, hemoptysis, chest pain. Chest x-ray on arrival showed no acute cardiopulmonary process. CBC on arrival was unremarkable. BMP on arrival shows sodium 135, potassium 5.1, chloride 101, serum bicarb 25, BUN 22, creatinine 0.62, glucose 106. Negative for influenza, RSV, COVID-19. Patient is being admitted to the general medical floor for observation. The patient is seen today 01/12/2023 in follow-up on the regular medical floor. He is currently resting in bed. Awake and alert in no acute distress. He is maintaining good O2 saturations in the 90s on room air. He has D5 0.9 normal saline at 75 ML's per hour. The plan is for PEG tube placement. He is remaining nothing by mouth. He does have retained secretions that he suctions himself. He is continued on Symbicort, DuoNeb inhalations, Decadron. Lovenox for DVT prophylaxis. His pain is well controlled. The patient is seen today 01/13/2023 in follow-up on the regular medical floor. He is sitting up in bed. Awake and alert in no acute distress. He is maintaining good O2 saturations in the upper 90s on room air. He's been afebrile. Hemodynamically stable. White count 4.0. Hemoglobin 11.6. Platelets 199. Sodium 137. Potassium 4.8. Bicarb 25. BUN 20. Creatinine 0.56. Glucose 110. He is awaiting PEG tube placement today. Currently nothing by mouth. He is currently on Decadron 6 mg IV daily. Lovenox for DVT prophylaxis. His pain is well controlled. He has lactated Ringer's at 20 ML's per hour. Continued on Symbicort and DuoNeb inhalations. The patient is seen today 01/14/2023 in follow-up on the regular medical floor. He is awake and alert in no acute distress. Resting comfortably in bed. Denies any worsening shortness of breath, cough or congestion. He did undergo PEG tube placement yesterday and the plan will be to start nutritional support today. He will be receiving Jevity 1.5 initial dose of 10 MLS per hour with a goal of 20 to ML's per hour. The patient is still needing one more treatment for his laryngeal cancer and 6 more days of radiation. He is continued on Decadron 6 mg daily. Continued on bronchodilators. Lovenox for DVT prophylaxis. The patient is seen today 01/15/2023 in follow-up on the regular medical floor. He is sitting up in bed. Awake and alert in no acute distress. He is maintaining good O2 saturations in the 90s on room air. He has normal saline at 75 ML's per hour. He's been initiated on Jevity at 20 to ML's per hour which is goal. Blood glucose 115. He denies any difficulty in swallowing today. No stridor. He is continued on Symbicort and DuoNeb inhalations. Lovenox for DVT prophylaxis. He remains on Decadron 6 mg IV daily. Objective - Vital Signs Vital signs: Vital Signs Temp 97.7 F 01/15/23 02:56 Pulse 88 01/15/23 08:22 Resp 18 01/15/23 02:56 BP 123/79 01/15/23 02:56 Pulse Ox 96 01/15/23 08:22 FiO2 21 01/15/23 08:22 Intake & Output 01/14/23 01/15/23 01/15/23 18:59 06:59 18:59 Intake Total 1254 Output Total 225 600 Balance -225 654 Weight 52.5 kg 52 kg Intake: Intake, IV Titration 900 Amount Dextrose 5%-0.9% NaCl 1, 900 000 ml @ 75 mls/hr IV . [id number] [facility] Rx#:[id number] Oral 30 Tube Feeding 264 Other 60 Output: Urine 225 600 Other: Voiding Method Toilet Urinal # Voids 1 - Exam GENERAL EXAM: Alert, very pleasant 62-year-old male, resting in bed, on room air, in no apparent distress. HEAD: Normocephalic and atraumatic EYES: Normal reaction of pupils, equal size. NOSE: Clear with pink turbinates. THROAT: Positive for mild inflammation. NECK: No masses, no JVD. CHEST: No chest wall deformity. LUNGS: No obvious stridor on auscultation of the neck. Equal air entry with diffuse rhonchi. CVS: S1 and S2 normal with no audible murmur, regular rhythm. No extra heart sounds ABDOMEN: PEG tube exit site is clean and dry. No hepatosplenomegaly, active bowel sounds, no guarding or rigidity. SPINE: No scoliosis or deformity SKIN: There is open wound and erythema around the neck CENTRAL NERVOUS SYSTEM: No focal deficits, tone is normal in all 4 extremities. EXTREMITIES: There is no peripheral edema, clubbing, or cyanosis. Peripheral pulses are intact. - Labs CBC & Chem 7: 01/13/23 05:59 01/13/23 05:59 Labs: Abnormal Lab Results - Last 24 Hours (Table) 01/14/23 01/15/23 01/15/23 Range/Units 17:54 00:31 08:06 POC Glucose (mg/dL) 145 H 134 H 115 H (70-110) mg/dL Assessment and Plan Assessment: Laryngeal cancer currently undergoing chemo/radiation therapy. There were concerns of possible laryngeal edema, patient did receive 10 mg of Decadron in the emergency room. CT of the neck showed some fullness of the larynx near the level of esophageal sphincter. There is asymmetry of the airway and the distal hypopharynx, but findings are similar to CT back in June,. Remains on Decadron 6 mg IV daily Dysphagia secondary to above, PEG tube placement done on 01/13/2023. The plan is to start Jevity tube feedings today Suspected acute COPD exacerbation, chest x-ray showed no acute cardiopulmonary process. Negative for influenza, RSV, COVID-19 Acute dyspnea, secondary to above History of lung cancer status post chemo/radiation Chronic ongoing tobacco dependence Plan: The patient was seen and evaluated Currently stable and on room air No evidence of stridor or significant dysphagia We will discontinue the Decadron Continued on Jevity tube feeding He is hoping to go home since We will continue to follow This patient was seen independently by the nurse practitioner I have personally seen and examined the patient, performed the documentation and the assessment and plan as written. Number of minutes spent on the visit: 22.
[2023-01-15] MEDS: SALT AND SODA MOUTHWASH 1,000 ML PO SCH ×3 (08:39→22:13)
[2023-01-15] MEDS: ENOXAPARIN 40 MG/0.4 ML SYRINGE SQ SCH (08:40)
[2023-01-15] MEDS: MAG HYDROX/AL HYDROX/SIMETH 30 ML, LIDOCAINE VISCOUS 2% 30 ML, diphenhydrAMINE ELIXIR 7... PO SCH ×16 (08:40→22:13)
[2023-01-15] MEDS: dexAMETHasone ORAL SOLUTION 4 MG/ML VIAL PO SCH ×4 (08:41→22:13)
[2023-01-15 08:43] LABS: HCT 33.9 % (39.0-53.0); HGB 11.4 gm/dL (13.0-17.5); MCH 30.5 pg (25.0-35.0); MCHC 33.5 g/dL (31.0-37.0); MCV 91.1 fL (80.0-100.0); Mean Platelet Volume 7.6; Platelet Count 272 k/uL (150-450); RBC 3.72 m/uL (4.30-5.90); WBC 3.1 k/uL (3.8-10.6)
[2023-01-15] MEDS: HYDROmorphone 0.5 MG/0.5 ML SYRINGE IVP PRN ×3 (08:45→22:16)
[2023-01-15 08:48] LABS: ALT 18 U/L (4-49); AST 16 U/L (17-59); African American GFR (CKD) >90 (>60 ml/min/1.73 sqM); Albumin/Globulin Ratio 1.2; Alkaline Phosphatase 71 U/L (38-126); Anion Gap 8 mmol/L; Blood Urea Nitrogen 21 mg/dL (9-20); Calcium 8.5 mg/dL (8.4-10.2); Carbon Dioxide 25 mmol/L (22-30); Chloride 102 mmol/L (98-107); Globulin 2.6 g/dL; Glucose 99 mg/dL (74-99); Non-African American GFR(CKD) >90 (>60 ml/min/1.73 sqM); Potassium 4.2 mmol/L (3.5-5.1); Sodium 135 mmol/L (137-145); Total Bilirubin 0.3 mg/dL (0.2-1.3); Total Protein 5.6 g/dL (6.3-8.2)
[2023-01-15 11:54] LABS: Glucose,Whole Blood 119 mg/dL (70-110)
--- NOTE | 2023-01-15 13:01 | P.PN ---
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 Patient was sent to ER from radiation oncology due to dehydration. Patient was started IV hydration and patient started getting dyspneic. Patient denies any fever or chills. Cough with occasional lightish yellow sputum production. No nausea vomiting or diarrhea. No complaints of chest pain. Patient was sent to ER for further evaluation. Patient was found to be wheezing while in the ER and was given a dose of Decadron 10 mg IV x1. Patient states that he has been having shortness of breath for the past 1 week. He is unable to take any oral diet. Occasionally was able to swallow and chew. Patient was seen by ENT in the past but was dismissed from the practice after missing appointment. EKG on admission showed sinus tachycardia with short VT interval CT neck and chest showed some fullness of the larynx near the level of the esophageal sphincter. There is asymmetry of the airway in the distal hypopharynx. Findings similar to the CT of 07/19/2022. Chest x-ray showed no acute cardiopulmonary process. COPD changes. Laboratory data showed WBC 4.4 hemoglobin 13.1 and platelets 144 Sodium 135 potassium 5.1 chloride 100 bicarb is 25 BUN 2019 creatinine 0.16 blo od sugar 106 and magnesium 1.6. 01/11/2023 Patient is resting in bed. Awake alert oriented x3. Complains of pain and requesting IV pain medications. Patient is unable to tolerate oral diet. Inclu ding liquids. Cough with clear to light yellow sputum production. Afebrile. No nausea or vomiting. Denies any abdominal pain. Patient is being current on IV Decadron laryngeal edema. Wheezing is much improved today. Laboratory test showed WBC 2.9 hemoglobin 11.9 and platelets 137 Other laboratory data reviewed. 01/12/2023 Patient is resting in the bed. Awake alert and oriented x3. No complaints of chest pain or shortness of breath today. Wheezing is almost resolved. No complaints of abdominal pain. Patient is still having cough with clear to light yellowish fluid. Patient is afebrile. No headache or dizziness or lightheadedness. Laboratory showed WBC 4.05, hemoglobin 11.0 and platelets 169. BUN 17.9 and creatinine 0.6 Decadron changed to 6 mg IV daily. Patient is scheduled for PEG tube placement tomorrow. Patient is being currently on D5 normal saline at 75 cc/h. Pain is fairly controlled with IV Dilaudid. 01/13. Patient seen and examined. Blood work done this morning showed WBC 4, hemoglobin 11.6, platelet, 99, sodium 137, potassium 4.8, BUN 20, creatinine 0.56. Going for PEG tube placement today 01/14. Patient seen and examined. Patient PEG tube placed yesterday, plan for patient to be started on tube feeding today 01/15. Patient seen and examined. Patient tube feeding is still not at goal, dietitian consulted and adjusting tube feeding REVIEW OF SYSTEMS: CONSTITUTIONAL: No fever, no malaise,. CARDIOVASCULAR: No chest pain, no palpitations, no syncope. PULMONARY: No shortness of breath, no cough, GASTROINTESTINAL: No diarrhea, no nausea, no vomiting, no abdominal pain. NEUROLOGICAL: No headaches, no weakness, PHYSICAL EXAMINATION: GENERAL: The patient is alert and oriented x3, not in any acute distress. Chronically ill-looking HEENT: Pupils are round and equally reacting to light. EOMI. No scleral icterus. No conjunctival pallor. Normocephalic, atraumatic. No pharyngeal erythema. No thyromegaly. CARDIOVASCULAR: S1 and S2 present. No murmurs, rubs, or gallops. PULMONARY: Chest is clear to auscultation, no wheezing or crackles. ABDOMEN: Soft, nontender, nondistended, normoactive bowel sounds. No palpable organomegaly. PEG tube seen MUSCULOSKELETAL: No joint swelling or deformity. EXTREMITIES: No cyanosis, clubbing, or pedal edema. NEUROLOGICAL: Gross neurological examination did not reveal any focal deficits. SKIN: No rashes. Assessment and plan Suspected laryngeal edema acute COPD exacerbation Laryngeal cancer currently undergoing chemo and radiation therapy. Difficulty swallowing, decrease of oral intake and dehydration. 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 Status post PEG tube placement , Patient tube feeding is still not at goal, dietitian consulted and adjusting tube feeding Hematology oncology follow-up Labs and medication were reviewed.. Continue same treatment. Continue with symptomatic treatment. Resume home medication. Monitor labs and vitals. DVT and GI prophylaxis. Further recommendations as per clinical course of the patient Dictation was produced using [employer] dictation software. please excuse any grammatical, word or spelling errors. Objective - Vital Signs Vital signs: Vital Signs Temp 98.5 F 01/15/23 08:00 Pulse 92 01/15/23 08:40 Resp 17 01/15/23 08:00 BP 132/83 01/15/23 08:00 Pulse Ox 96 01/15/23 08:22 FiO2 21 01/15/23 08:22 Intake & Output 01/14/23 01/15/23 01/15/23 18:59 06:59 18:59 Intake Total 1254 Output Total 225 600 Balance -225 654 Weight 52.5 kg 52 kg Intake: Intake, IV Titration 900 Amount Dextrose 5%-0.9% NaCl 1, 900 000 ml @ 75 mls/hr IV . [id number] [facility] Rx#:[id number] Oral 30 Tube Feeding 264 Other 60 Output: Urine 225 600 Other: Voiding Method Toilet Toilet Urinal Urinal # Voids 1 - Labs CBC & Chem 7: 01/15/23 06:34 01/15/23 06:34 Labs: Abnormal Lab Results - Last 24 Hours (Table) 01/14/23 01/15/23 01/15/23 Range/Units 17:54 00:31 06:34 WBC 3.1 L (3.8-10.6) k/uL RBC 3.72 L (4.30-5.90) m/uL Hgb 11.4 L (13.0-17.5) gm/dL Hct 33.9 L (39.0-53.0) % Sodium (137-145) mmol/L BUN (9-20) mg/dL Creatinine (0.66-1.25) mg/dL POC Glucose (mg/dL) 145 H 134 H (70-110) mg/dL AST (17-59) U/L Total Protein (6.3-8.2) g/dL Albumin (3.5-5.0) g/dL 01/15/23 01/15/23 Range/Units 06:34 08:06 WBC (3.8-10.6) k/uL RBC (4.30-5.90) m/uL Hgb (13.0-17.5) gm/dL Hct (39.0-53.0) % Sodium 135 L (137-145) mmol/L BUN 21 H (9-20) mg/dL Creatinine 0.50 L (0.66-1.25) mg/dL POC Glucose (mg/dL) 115 H (70-110) mg/dL AST 16 L (17-59) U/L Total Protein 5.6 L (6.3-8.2) g/dL Albumin 3.0 L (3.5-5.0) g/dL
--- NOTE | 2023-01-15 13:30 | P.PN ---
Subjective Progress Note Date: 01/15/23 Patient seen and evaluated at bedside. Patient is doing well tolerating tube feeds. Objective - Vital Signs Vital signs: Vital Signs Temp 98.5 F 01/15/23 08:00 Pulse 88 01/15/23 12:46 Resp 17 01/15/23 08:00 BP 132/83 01/15/23 08:00 Pulse Ox 96 01/15/23 08:22 FiO2 21 01/15/23 08:22 Intake & Output 01/14/23 01/15/23 01/15/23 18:59 06:59 18:59 Intake Total 1254 Output Total 225 600 Balance -225 654 Weight 52.5 kg 52 kg Intake: Intake, IV Titration 900 Amount Dextrose 5%-0.9% NaCl 1, 900 000 ml @ 75 mls/hr IV . [id number] [facility] Rx#:[id number] Oral 30 Tube Feeding 264 Other 60 Output: Urine 225 600 Other: Voiding Method Toilet Toilet Urinal Urinal # Voids 1 - Exam General no acute distress alert and oriented 3 Cardiovascular regular in rhythm Pulmonary nonlabored breathing Abdomen is soft nontender nondistended no guarding or rebound tenderness PEG tube in place some excoriation around PEG tube patient how to rotate bumper - Labs CBC & Chem 7: 01/15/23 06:34 01/15/23 06:34 Labs: Abnormal Lab Results - Last 24 Hours (Table) 01/14/23 01/15/23 01/15/23 Range/Units 17:54 00:31 06:34 WBC 3.1 L (3.8-10.6) k/uL RBC 3.72 L (4.30-5.90) m/uL Hgb 11.4 L (13.0-17.5) gm/dL Hct 33.9 L (39.0-53.0) % Sodium (137-145) mmol/L BUN (9-20) mg/dL Creatinine (0.66-1.25) mg/dL POC Glucose (mg/dL) 145 H 134 H (70-110) mg/dL AST (17-59) U/L Total Protein (6.3-8.2) g/dL Albumin (3.5-5.0) g/dL 01/15/23 01/15/23 01/15/23 Range/Units 06:34 08:06 11:53 WBC (3.8-10.6) k/uL RBC (4.30-5.90) m/uL Hgb (13.0-17.5) gm/dL Hct (39.0-53.0) % Sodium 135 L (137-145) mmol/L BUN 21 H (9-20) mg/dL Creatinine 0.50 L (0.66-1.25) mg/dL POC Glucose (mg/dL) 115 H 119 H (70-110) mg/dL AST 16 L (17-59) U/L Total Protein 5.6 L (6.3-8.2) g/dL Albumin 3.0 L (3.5-5.0) g/dL Assessment and Plan Assessment: 62-year-old male status post PEG tube placement Advanced PEG tube feedings to goal is tolerating patient is stable for discharge
[2023-01-15 17:05] LABS: Magnesium 1.9 mg/dL (1.6-2.3); Phosphorus 3.2 mg/dL (2.5-4.5)
[2023-01-15] MEDS: LACTATED RINGERS 1,000 ML IV SCH (17:14)
[2023-01-15 17:56] LABS: Glucose,Whole Blood 143 mg/dL (70-110)
[2023-01-16 00:09] LABS: Glucose,Whole Blood 154 mg/dL (70-110)
[2023-01-16] MEDS: DEXTROSE 5%-0.9% NACL 1,000 ML IV SCH ×2 (01:09→16:38)
[2023-01-16] MEDS: HYDROcodone/APAP 15 ML SOLUTION PO PRN ×4 (01:10→23:16)
[2023-01-16 05:54] LABS: Glucose,Whole Blood 128 mg/dL (70-110)
[2023-01-16] MEDS: HYDROmorphone 0.5 MG/0.5 ML SYRINGE IVP PRN ×3 (06:21→20:13)
[2023-01-16] MEDS: IPRATROPIUM-ALBUTEROL 3 ML NEB INHALATION SCH ×4 (07:56→19:27)
--- NOTE | 2023-01-16 08:36 | P.PN ---
Subjective Progress Note Date: 01/16/23 I am seeing this patient in consultation today 01/11/2023 for acute shortness of breath following radiation treatment. 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 Patient reportedly received radiation therapy yesterday morning. He had been feeling short of breath over the last week, but this significantly worsened after the radiation treatment. Patient states he felt like his throat was "closing up". Patient had received 10 mg of Decadron in the emergency room. On my evaluation, the patient is currently sitting up in bed, on room air, in no acute distress. No obvious significant stridor on evaluation. CT of the neck showed some fullness of the larynx near the level of esophageal sphincter. There is asymmetry of the airway and the distal hypopharynx, but findings are similar to CT back in June,. He is very rhonchorous to auscultation. He does have a persistent cough, with mostly clear sputum production. Denies any fevers, hemoptysis, chest pain. Chest x-ray on arrival showed no acute cardiopulmonary process. CBC on arrival was unremarkable. BMP on arrival shows sodium 135, potassium 5.1, chloride 101, serum bicarb 25, BUN 22, creatinine 0.62, glucose 106. Negative for influenza, RSV, COVID-19. Patient is being admitted to the general medical floor for observation. The patient is seen today 01/12/2023 in follow-up on the regular medical floor. He is currently resting in bed. Awake and alert in no acute distress. He is maintaining good O2 saturations in the 90s on room air. He has D5 0.9 normal saline at 75 ML's per hour. The plan is for PEG tube placement. He is remaining nothing by mouth. He does have retained secretions that he suctions himself. He is continued on Symbicort, DuoNeb inhalations, Decadron. Lovenox for DVT prophylaxis. His pain is well controlled. The patient is seen today 01/13/2023 in follow-up on the regular medical floor. He is sitting up in bed. Awake and alert in no acute distress. He is maintaining good O2 saturations in the upper 90s on room air. He's been afebrile. Hemodynamically stable. White count 4.0. Hemoglobin 11.6. Platelets 199. Sodium 137. Potassium 4.8. Bicarb 25. BUN 20. Creatinine 0.56. Glucose 110. He is awaiting PEG tube placement today. Currently nothing by mouth. He is currently on Decadron 6 mg IV daily. Lovenox for DVT prophylaxis. His pain is well controlled. He has lactated Ringer's at 20 ML's per hour. Continued on Symbicort and DuoNeb inhalations. The patient is seen today 01/14/2023 in follow-up on the regular medical floor. He is awake and alert in no acute distress. Resting comfortably in bed. Denies any worsening shortness of breath, cough or congestion. He did undergo PEG tube placement yesterday and the plan will be to start nutritional support today. He will be receiving Jevity 1.5 initial dose of 10 MLS per hour with a goal of 20 to ML's per hour. The patient is still needing one more treatment for his laryngeal cancer and 6 more days of radiation. He is continued on Decadron 6 mg daily. Continued on bronchodilators. Lovenox for DVT prophylaxis. The patient is seen today 01/15/2023 in follow-up on the regular medical floor. He is sitting up in bed. Awake and alert in no acute distress. He is maintaining good O2 saturations in the 90s on room air. He has normal saline at 75 ML's per hour. He's been initiated on Jevity at 20 to ML's per hour which is goal. Blood glucose 115. He denies any difficulty in swallowing today. No stridor. He is continued on Symbicort and DuoNeb inhalations. Lovenox for DVT prophylaxis. He remains on Decadron 6 mg IV daily. The patient is seen today 01/16/2023 in follow-up on the regular medical floor. He is awake and alert in no acute distress. Continues to maintain good O2 saturations in the 90s on room air. His main complaint today is of heartburn. We have discontinued his IV Decadron yesterday however he was restarted on oral Decadron per medical oncology. He denies any worsening difficulty with swallowing however he did not pass a swallow evaluation. He is to remain nothing by mouth. He is currently on Jevity tube feedings at 20 to ML's per hour which is his goal. Lovenox for DVT prophylaxis. Blood sugar 128. Objective - Vital Signs Vital signs: Vital Signs Temp 98.6 F 01/16/23 07:35 Pulse 80 01/16/23 08:08 Resp 17 01/16/23 07:35 BP 148/83 01/16/23 07:35 Pulse Ox 97 01/16/23 07:35 FiO2 21 01/15/23 08:22 Intake & Output 01/15/23 01/16/23 01/16/23 18:59 06:59 18:59 Intake Total 1284 Output Total 700 Balance 584 Weight 52 kg 53.5 kg Intake: Intake, IV Titration 900 Amount Dextrose 5%-0.9% NaCl 1, 900 000 ml @ 75 mls/hr IV . [id number] [facility] Rx#:[id number] Oral 30 Tube Feeding 264 Other 90 Output: Urine 700 Other: Voiding Method Toilet Toilet Urinal Urinal # Bowel Movements 0 - Exam GENERAL EXAM: Alert, pleasant 62-year-old male, on room air, in no apparent distress. HEAD: Normocephalic and atraumatic EYES: Normal reaction of pupils, equal size. NOSE: Clear with pink turbinates. THROAT: Positive for mild inflammation. NECK: No masses, no JVD. CHEST: No chest wall deformity. LUNGS: No obvious stridor on auscultation of the neck. Equal air entry with few scattered rhonchi. CVS: S1 and S2 normal with no audible murmur, regular rhythm. No extra heart sounds ABDOMEN: PEG tube exit site is clean and dry. No hepatosplenomegaly, active bowel sounds, no guarding or rigidity. SPINE: No scoliosis or deformity SKIN: There is open wound and erythema around the neck CENTRAL NERVOUS SYSTEM: No focal deficits, tone is normal in all 4 extremities. EXTREMITIES: There is no peripheral edema, clubbing, or cyanosis. Peripheral pulses are intact. - Labs CBC & Chem 7: 01/15/23 06:34 01/15/23 06:34 Labs: Abnormal Lab Results - Last 24 Hours (Table) 01/15/23 01/15/23 01/15/23 Range/Units 06:34 06:34 11:53 WBC 3.1 L (3.8-10.6) k/uL RBC 3.72 L (4.30-5.90) m/uL Hgb 11.4 L (13.0-17.5) gm/dL Hct 33.9 L (39.0-53.0) % Sodium 135 L (137-145) mmol/L BUN 21 H (9-20) mg/dL Creatinine 0.50 L (0.66-1.25) mg/dL POC Glucose (mg/dL) 119 H (70-110) mg/dL AST 16 L (17-59) U/L Total Protein 5.6 L (6.3-8.2) g/dL Albumin 3.0 L (3.5-5.0) g/dL 01/15/23 01/16/23 01/16/23 Range/Units 17:54 00:08 05:52 WBC (3.8-10.6) k/uL RBC (4.30-5.90) m/uL Hgb (13.0-17.5) gm/dL Hct (39.0-53.0) % Sodium (137-145) mmol/L BUN (9-20) mg/dL Creatinine (0.66-1.25) mg/dL POC Glucose (mg/dL) 143 H 154 H 128 H (70-110) mg/dL AST (17-59) U/L Total Protein (6.3-8.2) g/dL Albumin (3.5-5.0) g/dL Assessment and Plan Assessment: Laryngeal cancer currently undergoing chemo/radiation therapy. There were concerns of possible laryngeal edema, patient did receive 10 mg of Decadron in the emergency room. CT of the neck showed some fullness of the larynx near the level of esophageal sphincter. There is asymmetry of the airway and the distal hypopharynx, but findings are similar to CT back in June,. Dysphagia secondary to above, PEG tube placement done on 01/13/2023. The plan is to start Jevity tube feedings Suspected acute COPD exacerbation, chest x-ray showed no acute cardiopulmonary process. Negative for influenza, RSV, COVID-19 Acute dyspnea, secondary to above History of lung cancer status post chemo/radiation Chronic ongoing tobacco dependence Plan: The patient was seen and evaluated Labs and medications reviewed Currently stable and on room air No evidence of stridor Does not pass swallow evaluation Continued on Jevity tube feeding This patient was seen independently by the nurse practitioner I have personally seen and examined the patient, performed the documentation and the assessment and plan as written. Number of minutes spent on the visit: 20.
[2023-01-16] MEDS: dexAMETHasone ORAL SOLUTION 4 MG/ML VIAL PO SCH ×4 (09:06→20:35)
[2023-01-16] MEDS: ENOXAPARIN 40 MG/0.4 ML SYRINGE SQ SCH (09:09)
[2023-01-16] MEDS: MAG HYDROX/AL HYDROX/SIMETH 30 ML, LIDOCAINE VISCOUS 2% 30 ML, diphenhydrAMINE ELIXIR 7... PO SCH ×12 (09:09→20:15)
[2023-01-16] MEDS: SALT AND SODA MOUTHWASH 1,000 ML PO SCH ×3 (09:11→20:36)
--- NOTE | 2023-01-16 11:27 | P.PN ---
Subjective Progress Note Date: 01/16/23 Principal diagnosis: Malnutrition Patient doing well today. Complaining of mild discomfort at the PEG tube site and mild neck pain. Tolerating tube feeds at goal. Objective - Vital Signs Vital signs: Vital Signs Temp 98.6 F 01/16/23 07:35 Pulse 80 01/16/23 08:08 Resp 17 01/16/23 07:35 BP 148/83 01/16/23 07:35 Pulse Ox 97 01/16/23 07:35 FiO2 21 01/15/23 08:22 Intake & Output 01/15/23 01/16/23 01/16/23 18:59 06:59 18:59 Intake Total 1284 Output Total 700 Balance 584 Weight 52 kg 53.5 kg Intake: Intake, IV Titration 900 Amount Dextrose 5%-0.9% NaCl 1, 900 000 ml @ 75 mls/hr IV . [id number] [facility] Rx#:[id number] Oral 30 Tube Feeding 264 Other 90 Output: Urine 700 Other: Voiding Method Toilet Toilet Urinal Urinal # Bowel Movements 0 - Exam Abdomen: Soft, nondistended, mild tenderness a PEG tube, PEG tube in place - Labs CBC & Chem 7: 01/15/23 06:34 01/15/23 06:34 Labs: Abnormal Lab Results - Last 24 Hours (Table) 01/15/23 01/15/23 01/16/23 Range/Units 11:53 17:54 00:08 POC Glucose (mg/dL) 119 H 143 H 154 H (70-110) mg/dL 01/16/23 Range/Units 05:52 POC Glucose (mg/dL) 128 H (70-110) mg/dL Assessment and Plan (1) Squamous cell cancer of hypopharynx Narrative/Plan: Continue tube feeds at goal. We'll be reassessed by dietary tomorrow. Current Visit: Yes Status: Acute Code(s): C13.9 - MALIGNANT NEOPLASM OF HYPOPHARYNX, UNSPECIFIED SNOMED Code(s): 481585105
[2023-01-16 12:25] LABS: Glucose,Whole Blood 106 mg/dL (70-110)
--- NOTE | 2023-01-16 13:30 | P.PN ---
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 Patient was sent to ER from radiation oncology due to dehydration. Patient was started IV hydration and patient started getting dyspneic. Patient denies any fever or chills. Cough with occasional lightish yellow sputum production. No nausea vomiting or diarrhea. No complaints of chest pain. Patient was sent to ER for further evaluation. Patient was found to be wheezing while in the ER and was given a dose of Decadron 10 mg IV x1. Patient states that he has been having shortness of breath for the past 1 week. He is unable to take any oral diet. Occasionally was able to swallow and chew. Patient was seen by ENT in the past but was dismissed from the practice after missing appointment. EKG on admission showed sinus tachycardia with short TN interval CT neck and chest showed some fullness of the larynx near the level of the esophageal sphincter. There is asymmetry of the airway in the distal hypopharynx. Findings similar to the CT of 07/19/2022. Chest x-ray showed no acute cardiopulmonary process. COPD changes. Laboratory data showed WBC 4.4 hemoglobin 13.1 and platelets 144 Sodium 135 potassium 5.1 chloride 100 bicarb is 25 BUN 2019 creatinine 0.16 blo od sugar 106 and magnesium 1.6. 01/11/2023 Patient is resting in bed. Awake alert oriented x3. Complains of pain and requesting IV pain medications. Patient is unable to tolerate oral diet. Inclu ding liquids. Cough with clear to light yellow sputum production. Afebrile. No nausea or vomiting. Denies any abdominal pain. Patient is being current on IV Decadron laryngeal edema. Wheezing is much improved today. Laboratory test showed WBC 2.9 hemoglobin 11.9 and platelets 137 Other laboratory data reviewed. 01/12/2023 Patient is resting in the bed. Awake alert and oriented x3. No complaints of chest pain or shortness of breath today. Wheezing is almost resolved. No complaints of abdominal pain. Patient is still having cough with clear to light yellowish fluid. Patient is afebrile. No headache or dizziness or lightheadedness. Laboratory showed WBC 4.05, hemoglobin 11.0 and platelets 169. BUN 17.9 and creatinine 0.6 Decadron changed to 6 mg IV daily. Patient is scheduled for PEG tube placement tomorrow. Patient is being currently on D5 normal saline at 75 cc/h. Pain is fairly controlled with IV Dilaudid. 01/13. Patient seen and examined. Blood work done this morning showed WBC 4, hemoglobin 11.6, platelet, 99, sodium 137, potassium 4.8, BUN 20, creatinine 0.56. Going for PEG tube placement today 01/14. Patient seen and examined. Patient PEG tube placed yesterday, plan for patient to be started on tube feeding today 01/15. Patient seen and examined. Patient tube feeding is still not at goal, dietitian consulted and adjusting tube feeding 01/16. Patient seen and examined. Tolerating tube feeding, no erythema or redness around the PEG tube site. Vital signs stable REVIEW OF SYSTEMS: CONSTITUTIONAL: No fever, no malaise,. CARDIOVASCULAR: No chest pain, no palpitations, no syncope. PULMONARY: No shortness of breath, no cough, GASTROINTESTINAL: No diarrhea, no nausea, no vomiting, no abdominal pain. NEUROLOGICAL: No headaches, no weakness, PHYSICAL EXAMINATION: GENERAL: The patient is alert and oriented x3, not in any acute distress. Chronically ill-looking HEENT: Pupils are round and equally reacting to light. EOMI. No scleral icterus. No conjunctival pallor. Normocephalic, atraumatic. No pharyngeal erythema. No thyromegaly. CARDIOVASCULAR: S1 and S2 present. No murmurs, rubs, or gallops. PULMONARY: Chest is clear to auscultation, no wheezing or crackles. ABDOMEN: Soft, nontender, nondistended, normoactive bowel sounds. No palpable organomegaly. PEG tube seen MUSCULOSKELETAL: No joint swelling or deformity. EXTREMITIES: No cyanosis, clubbing, or pedal edema. NEUROLOGICAL: Gross neurological examination did not reveal any focal deficits. SKIN: No rashes. Assessment and plan Suspected laryngeal edema acute COPD exacerbation Laryngeal cancer currently undergoing chemo and radiation therapy. Difficulty swallowing, decrease of oral intake and dehydration. 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 Status post PEG tube placement , Patient tube feeding is still not at goal, dietitian consulted and adjusting tube feeding Hematology oncology follow-up Labs and medication were reviewed.. Continue same treatment. Continue with symptomatic treatment. Resume home medication. Monitor labs and vitals. DVT and GI prophylaxis. Further recommendations as per clinical course of the patient Dictation was produced using [employer] dictation software. please excuse any gram matical, word or spelling errors. Objective - Vital Signs Vital signs: Vital Signs Temp 98.6 F 01/16/23 07:35 Pulse 80 01/16/23 08:08 Resp 17 01/16/23 07:35 BP 148/83 01/16/23 07:35 Pulse Ox 97 01/16/23 07:35 FiO2 21 01/15/23 08:22 Intake & Output 01/15/23 01/16/23 01/16/23 18:59 06:59 18:59 Intake Total 1284 Output Total 700 Balance 584 Weight 52 kg 53.5 kg Intake: Intake, IV Titration 900 Amount Dextrose 5%-0.9% NaCl 1, 900 000 ml @ 75 mls/hr IV . [id number] [facility] Rx#:[id number] Oral 30 Tube Feeding 264 Other 90 Output: Urine 700 Other: Voiding Method Toilet Toilet Urinal Urinal # Bowel Movements 0 - Labs CBC & Chem 7: 01/15/23 06:34 01/15/23 06:34 Labs: Abnormal Lab Results - Last 24 Hours (Table) 01/15/23 01/15/23 01/16/23 Range/Units 11:53 17:54 00:08 POC Glucose (mg/dL) 119 H 143 H 154 H (70-110) mg/dL 01/16/23 Range/Units 05:52 POC Glucose (mg/dL) 128 H (70-110) mg/dL
[2023-01-16] MEDS: LACTATED RINGERS 1,000 ML IV SCH (16:38)
[2023-01-16 17:27] LABS: Glucose,Whole Blood 113 mg/dL (70-110)
[2023-01-16 19:32] VITALS: RESP 18
[2023-01-16 23:59] LABS: Glucose,Whole Blood 131 mg/dL (70-110)
[2023-01-17] MEDS: MAG HYDROX/AL HYDROX/SIMETH 30 ML, LIDOCAINE VISCOUS 2% 30 ML, diphenhydrAMINE ELIXIR 7... PO SCH ×12 (01:18→13:26)
[2023-01-17] MEDS: HYDROmorphone 0.5 MG/0.5 ML SYRINGE IVP PRN ×3 (01:18→13:26)
[2023-01-17] MEDS: DEXTROSE 5%-0.9% NACL 1,000 ML IV SCH ×2 (01:30→13:25)
[2023-01-17] MEDS: HYDROcodone/APAP 15 ML SOLUTION PO PRN (05:45)
[2023-01-17 06:28] LABS: Glucose,Whole Blood 106 mg/dL (70-110)
[2023-01-17] MEDS: IPRATROPIUM-ALBUTEROL 3 ML NEB INHALATION SCH ×3 (08:11→15:36)
[2023-01-17] MEDS: dexAMETHasone ORAL SOLUTION 4 MG/ML VIAL PO SCH ×2 (08:43→13:32)
[2023-01-17] MEDS: ENOXAPARIN 40 MG/0.4 ML SYRINGE SQ SCH (08:46)
[2023-01-17] MEDS: SALT AND SODA MOUTHWASH 1,000 ML PO SCH (08:47)
--- NOTE | 2023-01-17 10:13 | P.PN ---
Subjective Progress Note Date: 01/17/23 CHIEF COMPLAINT: Dysphagia HISTORY OF PRESENT ILLNESS: Patient postop day #4 status post EGD and PEG tube placement. Patient currently on tube feeds at 22 mL per hour. He is having flatus. No BM. Reports his pain is better controlled. Denies any nausea or vomiting. PHYSICAL EXAM: VITAL SIGNS: Reviewed. GENERAL: Well-developed in no acute distress. ABDOMEN: Soft. Nondistended. Nontender. PEG tube site clean dry and intact NEUROLOGIC: Alert and oriented. Cranial nerves II through XII grossly intact. ASSESSMENT: 1. Dysphagia status post PEG tube placement 2. Failed swallow eval 3. Laryngeal carcinoma PLAN: -Continue tube feeds per dietitian recommendations [employer] Manager note has been reviewed by physician. Signing provider agrees with the documented findings, assessment, and plan of care. Objective - Vital Signs Vital signs: Vital Signs Temp 98.6 F 01/17/23 07:18 Pulse 88 01/17/23 08:23 Resp 18 01/17/23 07:18 BP 116/74 01/17/23 07:18 Pulse Ox 95 01/17/23 07:18 FiO2 21 01/15/23 08:22 Intake & Output 01/16/23 01/17/23 01/17/23 18:59 06:59 18:59 Output Total 300 Balance -300 Weight 56 kg Output: Urine 300 Other: Voiding Method Toilet Toilet Toilet Urinal Urinal Urinal # Bowel Movements 0 - Labs CBC & Chem 7: 01/15/23 06:34 01/15/23 06:34 Labs: Abnormal Lab Results - Last 24 Hours (Table) 01/16/23 01/16/23 Range/Units 17:26 23:58 POC Glucose (mg/dL) 113 H 131 H (70-110) mg/dL
[2023-01-17 12:03] VITALS: BP 129/78; TEMP 98.2
[2023-01-17 12:29] LABS: Glucose,Whole Blood 112 mg/dL (70-110)
[2023-01-17 12:42] VITALS: BMI 18.7
[2023-01-17] MEDS: LACTATED RINGERS 1,000 ML IV SCH (13:32)
--- NOTE | 2023-01-17 13:56 | P.PN ---
Subjective Progress Note Date: 01/17/23 Principal diagnosis: Radiation esophagitis, also inflammation of the trachea secondary to radiation, on treatment for larynx malignancy In follow-up pt reporting significant relief from painful swallowing as well as difficulty breathing. All of the medications he has available to him he is using and they are effective. He is had PEG tube placement. He has started feed and is tolerating well. Objective - Vital Signs Vital signs: Vital Signs Temp 98.2 F 01/17/23 11:43 Pulse 108 H 01/17/23 11:54 Resp 18 01/17/23 11:43 BP 129/78 01/17/23 11:43 Pulse Ox 95 01/17/23 11:43 FiO2 21 01/15/23 08:22 Intake & Output 01/16/23 01/17/23 01/17/23 18:59 06:59 18:59 Output Total 300 Balance -300 Weight 56 kg 56 kg Output: Urine 300 Other: Voiding Method Toilet Toilet Toilet Urinal Urinal Urinal # Bowel Movements 0 - Constitutional General appearance: Present: cooperative, no acute distress, thin - EENT Eyes: Present: anicteric sclerae, EOMI ENT: Present: hearing grossly normal, normal oropharynx - Neck Details: radiation burn to the skin, scabbed over, skin thickened, no drainage - Respiratory Respiratory: bilateral: CTA - Cardiovascular Heart sounds: normal: S1, S2 - Peripheral edema leg Peripheral Edema: bilateral: None - Gastrointestinal General gastrointestinal: Present: decreased bowel sounds, soft - Neurologic Neurologic: Present: CNII-XII intact - Musculoskeletal Musculoskeletal: Present: strength equal bilaterally - Psychiatric Psychiatric: Present: A&O x's 3, appropriate affect, intact judgment & insight - Labs CBC & Chem 7: 01/15/23 06:34 01/15/23 06:34 Labs: Abnormal Lab Results - Last 24 Hours (Table) 01/16/23 01/16/23 01/17/23 Range/Units 17:26 23:58 12:18 POC Glucose (mg/dL) 113 H 131 H 112 H (70-110) mg/dL Assessment and Plan (1) Radiation-induced esophagitis Current Visit: Yes Status: Acute Priority: High Code(s): K20.80 - OTHER ESOPHAGITIS WITHOUT BLEEDING; T66.XXXA - RADIATION SICKNESS, UNSPECIFIED, INITIAL ENCOUNTER SNOMED Code(s): 393817703 (2) Squamous cell cancer of hypopharynx Current Visit: Yes Status: Acute Code(s): C13.9 - MALIGNANT NEOPLASM OF HYPOPHARYNX, UNSPECIFIED SNOMED Code(s): 323827898 Plan: Radiation-induced esophagitis, possibly some Inflammation of the trachea secondary to the radiation -Kools with dex for odynophagia, liquid norco for throat/trachea pain. Patient reporting significant improvement in symptoms. He is able to swallow some liquids now. -PEG Inserted, feedings started, patient tolerating well. Patient will require nutritional support for about 4-6 weeks. Pt has 1 more treatment, 6 more days of radiation, then it will take about 3-4 weeks to recover. -Patient encouraged to continue small amounts of oral intake, as tolerated -D/W surgery nurse. Family has received a feeding equipment, prescriptions signed for tube feeds, home care ordered for patient specific education. -Prescriptions for liquid hydrocodone and cools solution with dexamethasone have been sent to [facility]. Nursing informed to have patient wait for these prescriptions to be filled. Sq cell carcinoma of the hypopharynx -Medical/Radiation Oncologists have discussed the case. Last cycle of chemotherapy next week, concurrent with radiation, to complete 6 more days of radiation. Medical oncology office will contact patient with date and time of treatment.
--- NOTE | 2023-01-17 15:23 | P.PN ---
Subjective Progress Note Date: 01/17/23 I am seeing this patient in consultation today 01/11/2023 for acute shortness of breath following radiation treatment. 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 Patient reportedly received radiation therapy yesterday morning. He had been feeling short of breath over the last week, but this significantly worsened after the radiation treatment. Patient states he felt like his throat was "closing up". Patient had received 10 mg of Decadron in the emergency room. On my evaluation, the patient is currently sitting up in bed, on room air, in no acute distress. No obvious significant stridor on evaluation. CT of the neck showed some fullness of the larynx near the level of esophageal sphincter. There is asymmetry of the airway and the distal hypopharynx, but findings are similar to CT back in June,. He is very rhonchorous to auscultation. He does have a persistent cough, with mostly clear sputum production. Denies any fevers, hemoptysis, chest pain. Chest x-ray on arrival showed no acute cardiopulmonary process. CBC on arrival was unremarkable. BMP on arrival shows sodium 135, potassium 5.1, chloride 101, serum bicarb 25, BUN 22, creatinine 0.62, glucose 106. Negative for influenza, RSV, COVID-19. Patient is being admitted to the general medical floor for observation. The patient is seen today 01/12/2023 in follow-up on the regular medical floor. He is currently resting in bed. Awake and alert in no acute distress. He is maintaining good O2 saturations in the 90s on room air. He has D5 0.9 normal saline at 75 ML's per hour. The plan is for PEG tube placement. He is remaining nothing by mouth. He does have retained secretions that he suctions himself. He is continued on Symbicort, DuoNeb inhalations, Decadron. Lovenox for DVT prophylaxis. His pain is well controlled. The patient is seen today 01/13/2023 in follow-up on the regular medical floor. He is sitting up in bed. Awake and alert in no acute distress. He is maintaining good O2 saturations in the upper 90s on room air. He's been afebrile. Hemodynamically stable. White count 4.0. Hemoglobin 11.6. Platelets 199. Sodium 137. Potassium 4.8. Bicarb 25. BUN 20. Creatinine 0.56. Glucose 110. He is awaiting PEG tube placement today. Currently nothing by mouth. He is currently on Decadron 6 mg IV daily. Lovenox for DVT prophylaxis. His pain is well controlled. He has lactated Ringer's at 20 ML's per hour. Continued on Symbicort and DuoNeb inhalations. The patient is seen today 01/14/2023 in follow-up on the regular medical floor. He is awake and alert in no acute distress. Resting comfortably in bed. Denies any worsening shortness of breath, cough or congestion. He did undergo PEG tube placement yesterday and the plan will be to start nutritional support today. He will be receiving Jevity 1.5 initial dose of 10 MLS per hour with a goal of 20 to ML's per hour. The patient is still needing one more treatment for his laryngeal cancer and 6 more days of radiation. He is continued on Decadron 6 mg daily. Continued on bronchodilators. Lovenox for DVT prophylaxis. The patient is seen today 01/15/2023 in follow-up on the regular medical floor. He is sitting up in bed. Awake and alert in no acute distress. He is maintaining good O2 saturations in the 90s on room air. He has normal saline at 75 ML's per hour. He's been initiated on Jevity at 20 to ML's per hour which is goal. Blood glucose 115. He denies any difficulty in swallowing today. No stridor. He is continued on Symbicort and DuoNeb inhalations. Lovenox for DVT prophylaxis. He remains on Decadron 6 mg IV daily. The patient is seen today 01/16/2023 in follow-up on the regular medical floor. He is awake and alert in no acute distress. Continues to maintain good O2 saturations in the 90s on room air. His main complaint today is of heartburn. We have discontinued his IV Decadron yesterday however he was restarted on oral Decadron per medical oncology. He denies any worsening difficulty with swallowing however he did not pass a swallow evaluation. He is to remain nothing by mouth. He is currently on Jevity tube feedings at 20 to ML's per hour which is his goal. Lovenox for DVT prophylaxis. Blood sugar 128. On today's evaluation of 01/17/2023, the patient is feeling better. Is able to communicate. No stridor. No signs of any respiratory distress. He is known to have COPD. He has a nebulizer at home. He also has a PEG tube and is receiving enteral feeding for nutritional support. Is on room air oxygen. No other new complaints otherwise for now. There is some areas of skin irritation over the anterior neck just under his cricoid cartilage related to radiation therapy. Objective - Vital Signs Vital signs: Vital Signs Temp 98.2 F 01/17/23 11:43 Pulse 108 H 01/17/23 11:54 Resp 18 01/17/23 11:43 BP 129/78 01/17/23 11:43 Pulse Ox 95 01/17/23 11:43 FiO2 21 01/15/23 08:22 Intake & Output 01/16/23 01/17/23 01/17/23 18:59 06:59 18:59 Output Total 300 Balance -300 Weight 56 kg 56 kg Output: Urine 300 Other: Voiding Method Toilet Toilet Toilet Urinal Urinal Urinal # Bowel Movements 0 - Exam GENERAL EXAM: Alert, pleasant 62-year-old male, on room air, in no apparent distress. HEAD: Normocephalic and atraumatic EYES: Normal reaction of pupils, equal size. NOSE: Clear with pink turbinates. THROAT: Positive for mild inflammation. NECK: No masses, no JVD. CHEST: No chest wall deformity. LUNGS: No obvious stridor on auscultation of the neck. Equal air entry with few scattered rhonchi. CVS: S1 and S2 normal with no audible murmur, regular rhythm. No extra heart sounds ABDOMEN: PEG tube exit site is clean and dry. No hepatosplenomegaly, active bowel sounds, no guarding or rigidity. SPINE: No scoliosis or deformity SKIN: There is open wound and erythema around the neck CENTRAL NERVOUS SYSTEM: No focal deficits, tone is normal in all 4 extremities. EXTREMITIES: There is no peripheral edema, clubbing, or cyanosis. Peripheral pulses are intact. - Labs CBC & Chem 7: 01/15/23 06:34 01/15/23 06:34 Labs: Abnormal Lab Results - Last 24 Hours (Table) 01/16/23 01/16/23 01/17/23 Range/Units 17:26 23:58 12:18 POC Glucose (mg/dL) 113 H 131 H 112 H (70-110) mg/dL Assessment and Plan Plan: Laryngeal cancer currently undergoing chemo/radiation therapy. There were concerns of possible laryngeal edema, patient did receive 10 mg of Decadron in the emergency room. CT of the neck showed some fullness of the larynx near the level of esophageal sphincter. There is asymmetry of the airway and the distal hypopharynx, but findings are similar to CT back in June,. Dysphagia secondary to above, PEG tube placement done on 01/13/2023. The plan is to start Jevity tube feedings Suspected acute COPD exacerbation, chest x-ray showed no acute cardiopulmonary process. Negative for influenza, RSV, COVID-19 Acute dyspnea, secondary to above History of lung cancer status post chemo/radiation Chronic ongoing tobacco dependence Plan: Will allow the patient to go home with strict precautions of coming back to the hospital should he develop any respiratory distress. Try not to eat for the time being as the patient's swallow is impaired. Meanwhile, I'm going to give him DuoNeb updrafts to be used around the clock as needed for increased dyspnea cough and wheeze. At the same time, he is going to need Silvadene cream for the area of skin radiation burn over the anterior neck. Use of steroids with Decadron per oncology Completed radiation therapy Currently stable and on room air No evidence of stridor Does not pass swallow evaluation Continued on Jevity tube feeding Patient should be able to discharge today.
[2023-01-17 15:42] VITALS: PULSE 100
--- NOTE | 2023-01-19 06:47 | CDI ---
Documentation Clarification Form Date: 01/19/2023 05:43:54 AM From: Daphnie Basilio Admit Date: 01/10/2023 02:55:00 PM Patient Name: Claudio Lopez Visit Number: [id number] Discharge Date: 01/17/2023 04:13:00 PM ATTENTION: The Clinical Documentation Specialists (CDI) and [facility] Coding Staff appreciate your assistance in clarifying documentation. Please respond to the clarification below the line at the bottom and electronically sign. The CDI & [facility] Coding staff will review the response and follow-up if needed. Please note: Queries are made part of the Legal Health Record. If you have any questions, please contact the author of this message via ITS. Dr. Peter Ojeda Protein Calorie Malnutrition is documented in PEG tube insertion procedure note on 01/13. Additional clarification regarding the severity of malnutrition is requested. History/Risk Factors: Clinical Indicators: Current BMI: 17.4 [Cite applicable ASPEN criteria listed below] RD Consult Assessment: cachexia, malnutrition acute severe Treatment: PEG tube placement with Jevity feedings Supplements: Jevity Please clarify the severity of malnutrition, if known: [ ] Mild Protein-Calorie Malnutrition [ ] Moderate Protein-Calorie Malnutrition [ x ] Severe Protein-Calorie Malnutrition [ ] Malnutrition, unknown severity [ ] Other condition, please specify [ ] Unable to Determine MTDD
--- NOTE | 2023-01-19 10:51 | P.DS ---
Providers Date of admission: 01/10/23 14:55 Expected date of discharge: 01/17/23 Attending physician: Peter Ojeda Consults: 01/10/23 14:54 Consult Physician Routine Consulting Provider: Claudio Murdock Consult Reason/Comments: respiratory failure Do you want consulting provider notified?: Yes 01/11/23 16:26 Consult Physician Urgent Consulting Provider: Keanu Ramos Consult Reason/Comments: oncological care, known Do you want consulting provider notified?: Yes Primary care physician: Venkata Cortez Hospital Course: Final diagnosis Suspected laryngeal edema status post tube placement Severe protein calorie malnutrition with a BMI of 18.8 acute COPD exacerbation Laryngeal cancer currently undergoing chemo and radiation therapy. Difficulty swallowing, decrease of oral intake and dehydration. 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 Patient will follow-up with Dr. Cortez in the outpatient setting upon discharge. Patient is to bolus tube feedings and outpatient follow-up with oncology as scheduled. Total time taken is greater than 35 minutes. Hospital course This is a 62-year-old male who was recently admitted with laryngeal edema with difficulty in swallowing with poor oral intake and dehydration being closely monitored. Patient was evaluated by general surgery underwent PEG tube placement and has been started on tube feedings. Patient also evaluated by pulmonary recommending outpatient follow-up. Patient will continue with home care in the outpatient setting and bolus feedings and close outpatient follow-up with primary care provider as well as oncology. Patient has been cleared by consultations for discharge home today. Please refer to other consultation notes for further HPI. Currently no reports of chest pain, shortness of breath, or palpitations. Patient is afebrile. No reports of nausea or vomiting and patient is tolerating tube feeds. Patient will be discharged home today. Guarded prognosis and high risk for readmission given patient's significant comorbidities. Physical exam: Gen: This is a 62-year-old male who is awake, alert and oriented 3, thin built, elderly appearing, ill appearing HEENT: Head is atraumatic, normocephalic. Pupils equal, round. Sclerae is anicteric. NECK: Supple. No JVD. No lymphadenopathy. No thyromegaly. LUNGS: Diminished breath sounds bilaterally with some scattered rhonchi and upper bronchial congestion noted. No intercostal retractions. HEART: Regular rate and rhythm. No murmur. ABDOMEN: Soft. Bowel sounds are present. No masses. No tenderness. PEG tube noted EXTREMITIES: No pedal edema. No calf tenderness. NEUROLOGICAL: Patient is awake, alert and oriented x3. Cranial nerves 2 through 12 are grossly intact. Please refer to medication reconciliation sheet for a list of medications. The impression and plan of care has been dictated by Sharon Thompson, Nurse Practitioner as directed. Dr. Lamont MD I have performed a history and examination and MDM of this patient, discussed the same with the dictator, and agree with the dictator's assessment and plan as written ,documented as a scribe. Based on total visit time, I have performed more than 50% of the visit. Patient Condition at Discharge: Fair Plan - Discharge Summary Discharge Rx Participant: Yes New Discharge Prescriptions: New Lidocaine Viscous 2% [Xylocaine Viscous] 30 ml PO QID 5 Days #210 ml SILVER sulfADIAZINE CREAM [Silvadene Cream] 1 applic TOPICAL DAILY #85 gram Ipratropium-Albuterol Nebulize [Duoneb 0.5 mg-3 mg/3 ml Soln] 3 ml INHALATION QID #100 each Continue predniSONE 100 mg PO DIRECTED guaiFENesin [Mucinex] 600 - 1,200 mg PO Q12H PRN PRN Reason: Cough Doxepin 10mg/Ml Concentrate 10 mg PO TID Mometasone Furoate [Elocon Cream 0.1%] 1 applic TOPICAL BID Pantoprazole [Protonix] 40 mg PO DAILY HYDROcodone/APAP 5-325MG [[place] 5-325] 1 tab PO Q6HR PRN PRN Reason: Pain oxyCODONE HCL [OxyIR] 5 mg PO DIRECTED PRN PRN Reason: Pain Acetaminophen Tab [Tylenol] 500 mg PO Q6HR PRN PRN Reason: Pain Or Fever > 100.5 bisacodyL [Dulcolax] 10 mg PO DAILY Lidocaine Viscous 2% [Xylocaine Viscous] 5 ml MUCOUS MEM Q1H PRN PRN Reason: throat pain Omeprazole 20 mg PO DAILY Ondansetron Odt [Zofran ODT] 8 mg SL TID PRN PRN Reason: Nausea Discharge Medication List HYDROcodone/APAP 5-325MG [[place] 5-325] 1 tab PO Q6HR PRN 11/09/22 [History] Acetaminophen Tab [Tylenol] 500 mg PO Q6HR PRN 01/10/23 [History] Doxepin 10mg/Ml Concentrate 10 mg PO TID 01/10/23 [History] Lidocaine Viscous 2% [Xylocaine Viscous] 5 ml MUCOUS MEM Q1H PRN 01/10/23 [Histo ry] Mometasone Furoate [Elocon Cream 0.1%] 1 applic TOPICAL BID 01/10/23 [History] Omeprazole 20 mg PO DAILY 01/10/23 [History] Ondansetron Odt [Zofran ODT] 8 mg SL TID PRN 01/10/23 [History] Pantoprazole [Protonix] 40 mg PO DAILY 01/10/23 [History] bisacodyL [Dulcolax] 10 mg PO DAILY 01/10/23 [History] guaiFENesin [Mucinex] 600 - 1,200 mg PO Q12H PRN 01/10/23 [History] oxyCODONE HCL [OxyIR] 5 mg PO DIRECTED PRN 01/10/23 [History] predniSONE 100 mg PO DIRECTED 01/10/23 [History] Lidocaine Viscous 2% [Xylocaine Viscous] 30 ml PO QID 5 Days #210 ml 01/15/23 [Rx] Ipratropium-Albuterol Nebulize [Duoneb 0.5 mg-3 mg/3 ml Soln] 3 ml INHALATION QID #100 each 01/17/23 [Rx] SILVER sulfADIAZINE CREAM [Silvadene Cream] 1 applic TOPICAL DAILY #85 gram 01/17/23 [Rx] Follow up Appointment(s)/Referral(s): [facility], [NON-STAFF] - 1 Week [facility], [REFERRING] - 1 Week Venkata Cortez DO [Primary Care Provider] - 01/20/23 1:30 pm () Jeff Lezama MD [STAFF PHYSICIAN] - As Needed Activity/Diet/Wound Care/Special Instructions: [facility] will deliver tube feeding and tube feeding supplies tonight between 6 and 8pm. Activity Limited until follow-up Follow-up with oncology outpatient Follow-up with pulmonary outpatient Continue Silvadene cream daily to the area of the neck Continue tube feedings and Homecare outpatient Continue DuoNeb treatments 4 times daily and close outpatient follow-up with pulmonary Discharge Disposition: HOME WITH HOME HEALTH SERVICES
== END 2023-01-17 16:13 | disposition home health service (06) | DRG 391 ==
LOC: EC 12:17 → 5NMEDONC 14:55 → OBSVTOIN 14:55 → 5NMEDONC 16:49
PROVIDERS: ADMIT Internal Medicine; ATTEND Internal Medicine
PROC: 0DH63UZ Insertion of Feeding Device into Stomach, Percutaneous Approach (ICD-10-PCS; principal; 2023-01-13 11:30)
PROC: 3E0G76Z Introduction of Nutritional Substance into Upper GI, Via Natural or Artificial Opening (ICD-10-PCS; principal; 2023-01-13 11:30)
DX: K20.80 Other esophagitis without bleeding (principal); E43 Unspecified severe protein-calorie malnutrition; J96.90 Respiratory failure, unspecified, unspecified whether with hypoxia or hypercapnia; Z68.1 Body mass index [BMI] 19.9 or less, adult; J44.1 Chronic obstructive pulmonary disease with (acute) exacerbation; K22.2 Esophageal obstruction; T50.8X5A Adverse effect of diagnostic agents, initial encounter; Y84.2 Radiological procedure and radiotherapy as the cause of abnormal reaction of the patient, or of later complication, without mention of misadventure at the time of the procedure; C13.9 Malignant neoplasm of hypopharynx, unspecified; C32.9 Malignant neoplasm of larynx, unspecified; E86.0 Dehydration; F17.210 Nicotine dependence, cigarettes, uncomplicated; R13.10 Dysphagia, unspecified; Z79.899 Other long term (current) drug therapy; Z80.42 Family history of malignant neoplasm of prostate; Z85.118 Personal history of other malignant neoplasm of bronchus and lung; Z92.3 Personal history of irradiation; Z92.21 Personal history of antineoplastic chemotherapy; Z79.52 Long term (current) use of systemic steroids; K21.9 Gastro-esophageal reflux disease without esophagitis; M54.2 Cervicalgia; Z20.822 Contact with and (suspected) exposure to COVID-19; Z28.310 Unvaccinated for COVID-19; Z28.21 Immunization not carried out because of patient refusal
CPT/HCPCS: 36415; 43246; 70491; 71045; 71260; 80048; 80053; 82803; 83605; 83735; 84100; 85025; 85027; 85610; 85730; 87636; 93005; 94640; 94760; 96361; 96365; 96375; 99285

== ENCOUNTER → 2023-02-14 | Outpatient (CLI) | payer BC ==
--- NOTE | 2023-02-14 11:55 | CT ---
EXAMINATION TYPE: CT chest wo con CT DLP: 168.2 mGycm, Automated exposure control for dose reduction was used. DATE OF EXAM: 02/14/2023 11:20 AM COMPARISON: 01/10/2023 CLINICAL INDICATION:Male, 62 years old with history of C34.90; PHH, Carcinoma Lung small, throat ca. TECHNIQUE: Multiple axial images were obtained through the chest. Sagittal and coronal reformats were created for review. Contrast used: mL of (None if empty) Oral contrast used: (None if empty) FINDINGS: LUNGS/ PLEURA: Stable lingular nodule along the periphery measuring 3 mm image 41 series 3. Stable le ft upper lobe nodule measuring 3 mm image 22. Mild centrilobular paraseptal emphysema changes. No evidence for focal consolidation, pneumothorax or pleural effusion. AIRWAY: Patent and unremarkable. HEART: Size within normal limits. Scattered calcified plaques in the coronary arteries. MEDIASTINUM: No gross evidence of adenopathy. VASCULATURE: No aortic aneurysm. MUSCULOSKELETAL: No acute osseous abnormalities SOFT TISSUES/LYMPH NODES: No evidence for lymphadenopathy within the neck. LOWER NECK: No significant findings. UPPER ABDOMEN: PEG tube terminates in the gastric lumen. IMPRESSION: 1. No evidence for new or enlarging pulmonary nodule. No evidence for lymphadenopathy. 2. The neck and vocal cords are only partially in the [id number]. No evidence for lymphadenopathy given noncontrast technique.
== END | disposition home or self-care (01) ==
LOC: RADCTMAIN 10:58
PROVIDERS: ATTEND Internal Medicine Hematology & Oncology
DX: C34.90 Malignant neoplasm of unspecified part of unspecified bronchus or lung (principal)
CPT/HCPCS: 71250

== ENCOUNTER 2023-07-09 01:31 | Inpatient (IN) | payer BC, OTHER ==
[2023-07-09 01:54] LABS: Basophils % (A) 0 %; Eosinophils # (A) 0.2 k/uL (0-0.7); Eosinophils % (A) 1 %; HCT 42.4 % (39.0-53.0); HGB 13.6 gm/dL (13.0-17.5); Lymphocytes # (A) 1.5 k/uL (1.0-4.8); Lymphocytes % (A) 8 %; MCH 29.9 pg (25.0-35.0); MCHC 32.2 g/dL (31.0-37.0); MCV 92.8 fL (80.0-100.0); Mean Platelet Volume 6.8; Monocytes # (A) 1.3 k/uL (0-1.0); Monocytes % (A) 7 %; Neutrophils # (A) 14.3 k/uL (1.3-7.7); Neutrophils % (A) 81 %; Platelet Count 358 k/uL (150-450); RBC 4.56 m/uL (4.30-5.90); RDW 12.6 % (11.5-15.5); WBC 17.7 k/uL (3.8-10.6)
--- NOTE | 2023-07-09 01:54 | ED ---
General Adult HPI - General Chief complaint: Shortness of Breath Stated complaint: SOB Time Seen by Provider: 07/09/23 01:35 Source: patient, EMS, RN notes reviewed, old records reviewed Mode of arrival: EMS Limitations: no limitations - History of Present Illness Initial comments: 62-year-old male history of COPD, lung cancer, and laryngeal cancer presenting with worsening cough and dyspnea over the past 24 hours. No fever. No chest pain. No lower extremity pain or swelling. Patient has a whisper voice which she states has been present for at least the past 1 month, no acute change. Patient does states he recently finished chemotherapy. Patient was placed on CPAP during transport by paramedics with hypoxia and severe respiratory distress. - Related Data Home Medications Medication Instructions Recorded Confirmed HYDROcodone/APAP 5-325MG [[place] 1 tab PO Q6HR PRN 11/09/22 01/10/23 5-325] Acetaminophen Tab [Tylenol] 500 mg PO Q6HR PRN 01/10/23 01/10/23 Doxepin 10mg/Ml Concentrate 10 mg PO TID 01/10/23 01/10/23 Lidocaine Viscous 2% [Xylocaine 5 ml MUCOUS MEM Q1H PRN 01/10/23 01/10/23 Viscous] Mometasone Furoate [[place] Cream 1 applic TOPICAL BID 01/10/23 01/10/23 0.1%] Omeprazole 20 mg PO DAILY 01/10/23 01/10/23 Ondansetron Odt [Zofran ODT] 8 mg SL TID PRN 01/10/23 01/10/23 Pantoprazole [Protonix] 40 mg PO DAILY 01/10/23 01/10/23 bisacodyL [Dulcolax] 10 mg PO DAILY 01/10/23 01/10/23 guaiFENesin [Mucinex] 600 - 1,200 mg PO Q12H PRN 01/10/23 01/10/23 oxyCODONE HCL [OxyIR] 5 mg PO DIRECTED PRN 01/10/23 01/10/23 predniSONE 100 mg PO DIRECTED 01/10/23 01/10/23 Previous Rx's Medication Instructions Recorded Lidocaine Viscous 2% [Xylocaine 30 ml PO QID 5 Days #210 ml 01/15/23 Viscous] Ipratropium-Albuterol Nebulize 3 ml INHALATION QID #100 each 01/17/23 [Duoneb 0.5 mg-3 mg/3 ml Soln] SILVER sulfADIAZINE CREAM 1 applic TOPICAL DAILY #85 gram 01/17/23 [Silvadene Cream] Allergies Allergy/AdvReac Type Severity Reaction Status Date / Time No Known Allergies Allergy Verified 07/09/23 01:49 Review of Systems ROS Statement: Those systems with pertinent positive or pertinent negative responses have been documented in the HPI. ROS Other: All systems not noted in ROS Statement are negative. 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, recent dx of laryngeal cancer dx mar 2022 History of Any Multi-Drug Resistant Organisms: None Reported Past Surgical History: No Surgical Hx Reported Additional Past Surgical History / Comment(s): Bronchoscopies, colonoscopy Past Anesthesia/Blood Transfusion Reactions: No Reported Reaction Past Psychological History: No Psychological Hx Reported Smoking Status: Former smoker Past Alcohol Use History: None Reported Past Drug Use History: Marijuana - Past Family History Mother Family Medical History: No Reported History Father Family Medical History: Cancer Additional Family Medical History / Comment(s): Prostate ca General Exam General appearance: alert, in distress Head exam: Present: atraumatic, normocephalic Eye exam: Present: normal appearance, PERRL ENT exam: Present: normal exam Neck exam: Present: normal inspection Respiratory exam: Present: respiratory distress, wheezes, accessory muscle use, decreased breath sounds. Absent: stridor Cardiovascular Exam: Present: regular rate, normal rhythm GI/Abdominal exam: Present: soft. Absent: distended, tenderness Neurological exam: Present: alert, oriented X3, CN II-XII intact. Absent: motor sensory deficit Psychiatric exam: Present: normal affect, normal mood Skin exam: Present: warm, dry, intact Course Vital Signs 07/09/23 07/09/23 07/09/23 01:38 01:43 01:44 Temperature 98.2 F Pulse Rate 116 H Respiratory 21 Rate Blood Pressure 147/103 O2 Sat by Pulse 100 Oximetry Fraction of 40 40 Inspired Oxygen (FIO2) 07/09/23 01:54 Temperature Pulse Rate Respiratory 14 Rate Blood Pressure O2 Sat by Pulse Oximetry Fraction of Inspired Oxygen (FIO2) Medical Decision Making - Medical Decision Making Was pt. sent in by a medical professional or institution ([facility], AIR GUN OPERATOR, urgent care, hospital, or longterm...) When possible be specific @ -No Did you speak to anyone other than the patient for history (EMS, parent, family, police, friend...)? What history was obtained from this source @ -No Did you review nursing and triage notes (agree or disagree)? Why? @ -I reviewed and agree with nursing and triage notes Were old charts reviewed (outside hosp., previous admission, EMS record, old EKG, old radiological studies, urgent care reports/EKG's, longterm records)? Report findings @ -No old charts were reviewed Differential Diagnosis @ -Differential Dyspnea: Coronary syndrome, arrhythmia, tamponade, asthma, COPD, pulmonary embolism, pneumonia, pneumothorax, pulmonary effusion, anaphylaxis, diabetic ketoacidosis, flailed chest, pulmonary contusion, diaphragmatic rupture, anemia, neuromuscular, this is not meant to be an all-inclusive list. EKG interpreted by me (3pts min.). @Sinus tachycardia rate of 116, FL interval 128, QRS duration 82, QTc [address] segment elevation. X-rays interpreted by me (1pt min.). @Chest x-ray negative for acute cardiopulmonary findings CT interpreted by me (1pt min.). @ -None done U/S interpreted by me (1pt. min.). @ -None done What testing was considered but not performed or refused? (CT, X-rays, U/S, labs)? Why? @ -None What meds were considered but not given or refused? Why? @ -None Did you discuss the management of the patient with other professionals (professionals i.e. [facility], AIR GUN OPERATOR, lab, RT, psych nurse, child protective services social worker, methane gas collection system operator, teacher, disability hearing officer, trimming caser)? Give summary @ -EMH Was smoking cessation discussed for >3mins.? @ -No Was critical care preformed (if so, how long)? @Yes, 35 minutes Were there social determinants of health that impacted care today? How? (Homelessness, low income, unemployed, alcoholism, drug addiction, transportation, low edu. Level, literacy, decrease access to med. care, fci, rehab)? @ -No Was there de-escalation of care discussed even if they declined (Discuss DNR or withdrawal of care, Hospice)? DNR status @ -No What co-morbidities impacted this encounter? (DM, HTN, Smoking, COPD, CAD, Cancer, CVA, ARF, Chemo, Hep., AIDS, mental health diagnosis, sleep apnea, morbid obesity)? @ -COPD, remote history of lung cancer, current smoker Was patient admitted / discharged? Hospital course, mention meds given and route, prescriptions, significant lab abnormalities, going to OR and other pertinent info. @ -62-year-old male presenting with respiratory distress requiring respiratory support with BiPAP. After 3 treatments of albuterol and CPAP by paramedics the patient's symptoms significantly improved. He continues to have wheezing and decreased air entry bilaterally. No associated symptoms of chest pain, no lower extremity pain or swelling. He has had cough. No fever. He has a leukocytosis at 17 otherwise normal laboratory testing, normal lactic acid. Patient started on IV steroids and IV antibiotics in the emergency department. He will be admitted for COPD exacerbation with respiratory failure. Undiagnosed new problem with uncertain prognosis? @ -No Drug Therapy requiring intensive monitoring for toxicity (Heparin, Nitro, Insulin, Cardizem)? @ -No Were any procedures done? @ -No Diagnosis/symptom? @COPD with respiratory failure Acute, or Chronic, or Acute on Chronic? @ -Acute Uncomplicated (without systemic symptoms) or Complicated (systemic symptoms)? @ -Default Side effects of treatment? @ -No Exacerbation, Progression, or Severe Exacerbation? @ -No Poses a threat to life or bodily function? How? (Chest pain, [place], HI, pneumonia, PE, COPD, DKA, ARF, appy, cholecystitis, CVA, Diverticulitis, Homicidal, Suicidal, threat to staff... and all critical care pts) @Yes, respiratory failure - Lab Data Result diagrams: 07/09/23 01:33 07/09/23 01:33 Lab Results 07/09/23 07/09/23 07/09/23 Range/Units 01:33 01:33 01:33 WBC 17.7 H (3.8-10.6) k/uL RBC 4.56 (4.30-5.90) m/uL Hgb 13.6 (13.0-17.5) gm/dL Hct 42.4 (39.0-53.0) % MCV 92.8 (80.0-100.0) fL MCH 29.9 (25.0-35.0) pg MCHC 32.2 (31.0-37.0) g/dL RDW 12.6 (11.5-15.5) % Plt Count 358 (150-450) k/uL MPV 6.8 Neutrophils % 81 % Lymphocytes % 8 % Monocytes % 7 % Eosinophils % 1 % Basophils % 0 % Neutrophils # 14.3 H (1.3-7.7) k/uL Lymphocytes # 1.5 (1.0-4.8) k/uL Monocytes # 1.3 H (0-1.0) k/uL Eosinophils # 0.2 (0-0.7) k/uL Basophils # 0.0 (0-0.2) k/uL PT 10.6 (10.0-12.5) sec INR 1.0 (<1.2) APTT 22.9 (22.0-30.0) sec Sodium 138 (137-145) mmol/L Potassium 3.9 (3.5-5.1) mmol/L Chloride 101 (98-107) mmol/L Carbon Dioxide 30 (22-30) mmol/L Anion Gap 7 mmol/L BUN 30 H (9-20) mg/dL Creatinine 0.64 L (0.66-1.25) mg/dL Est GFR (CKD-EPI)AfAm >90 (>60 ml/min/1.73 sqM) Est GFR (CKD-EPI)NonAf >90 (>60 ml/min/1.73 sqM) Glucose 119 H (74-99) mg/dL Plasma Lactic Acid Elan (0.7-2.0) mmol/L Calcium 9.1 (8.4-10.2) mg/dL Magnesium 2.0 (1.6-2.3) mg/dL Total Bilirubin 0.2 (0.2-1.3) mg/dL AST 20 (17-59) U/L ALT 20 (4-49) U/L Alkaline Phosphatase 76 (38-126) U/L Troponin I (0.000-0.034) ng/mL NT-Pro-B Natriuret Pep 92 pg/mL Total Protein 6.0 L (6.3-8.2) g/dL Albumin 3.5 (3.5-5.0) g/dL 07/09/23 07/09/23 Range/Units 01:33 01:33 WBC (3.8-10.6) k/uL RBC (4.30-5.90) m/uL Hgb (13.0-17.5) gm/dL Hct (39.0-53.0) % MCV (80.0-100.0) fL MCH (25.0-35.0) pg MCHC (31.0-37.0) g/dL RDW (11.5-15.5) % Plt Count (150-450) k/uL MPV Neutrophils % % Lymphocytes % % Monocytes % % Eosinophils % % Basophils % % Neutrophils # (1.3-7.7) k/uL Lymphocytes # (1.0-4.8) k/uL Monocytes # (0-1.0) k/uL Eosinophils # (0-0.7) k/uL Basophils # (0-0.2) k/uL PT (10.0-12.5) sec INR (<1.2) APTT (22.0-30.0) sec Sodium (137-145) mmol/L Potassium (3.5-5.1) mmol/L Chloride (98-107) mmol/L Carbon Dioxide (22-30) mmol/L Anion Gap mmol/L BUN (9-20) mg/dL Creatinine (0.66-1.25) mg/dL Est GFR (CKD-EPI)AfAm (>60 ml/min/1.73 sqM) Est GFR (CKD-EPI)NonAf (>60 ml/min/1.73 sqM) Glucose (74-99) mg/dL Plasma Lactic Acid Elan 0.7 (0.7-2.0) mmol/L Calcium (8.4-10.2) mg/dL Magnesium (1.6-2.3) mg/dL Total Bilirubin (0.2-1.3) mg/dL AST (17-59) U/L ALT (4-49) U/L Alkaline Phosphatase (38-126) U/L Troponin I <0.012 (0.000-0.034) ng/mL NT-Pro-B Natriuret Pep pg/mL Total Protein (6.3-8.2) g/dL Albumin (3.5-5.0) g/dL Critical Care Time Critical Care Time: Yes Total Critical Care Time: 35 Disposition Clinical Impression: Respiratory failure, Acute exacerbation of chronic obstructive pulmonary disease Disposition: ADMITTED IP TO THIS HOSP Condition: Stable Is patient prescribed a controlled substance at d/c from ED?: No Referrals: Venkata Cortez DO [Primary Care Provider] - 1-2 days Time of Disposition: 03:04
[2023-07-09] MEDS: methylPREDNISolone SOD SUCCI 125 MG/2 ML VIAL IV STA (01:59)
[2023-07-09 02:04] LABS: ALT 20 U/L (4-49); AST 20 U/L (17-59); African American GFR (CKD) >90 (>60 ml/min/1.73 sqM); Albumin 3.5 g/dL (3.5-5.0); Alkaline Phosphatase 76 U/L (38-126); Anion Gap 7 mmol/L; Blood Urea Nitrogen 30 mg/dL (9-20); Calcium 9.1 mg/dL (8.4-10.2); Carbon Dioxide 30 mmol/L (22-30); Chloride 101 mmol/L (98-107); Glucose 119 mg/dL (74-99); Non-African American GFR(CKD) >90 (>60 ml/min/1.73 sqM); Potassium 3.9 mmol/L (3.5-5.1); Sodium 138 mmol/L (137-145); Total Bilirubin 0.2 mg/dL (0.2-1.3)
[2023-07-09 02:12] LABS: NT-Pro-B-Type Natriuretic Pept 92 pg/mL
[2023-07-09 02:30] LABS: Partial Thromboplastin Time 22.9 sec (22.0-30.0); Prothrombin Time 10.6 sec (10.0-12.5)
--- NOTE | 2023-07-09 02:55 | XR ---
EXAM: XR Chest, 1 View CLINICAL HISTORY: rosaura TECHNIQUE: Frontal view of the chest. COMPARISON: January 10, 2023. FINDINGS: Lungs: Unremarkable. No acute infiltration, atelectasis or mass. Pleural space: Unremarkable. No pneumothorax or pleural fluid. Heart: Unremarkable. No cardiomegaly. Mediastinum: Unremarkable. Normal mediastinal contour. Bones/joints: No acute findings. IMPRESSION: No acute findings in the chest.
[2023-07-09] MEDS ORDERED: NALOXONE 0.4 MG/ML 1 ML VIAL IVP PRN (02:58)
[2023-07-09] MEDS: SODIUM CHLORIDE 0.9% 1,000 ML IV SCH (03:27)
[2023-07-09] MEDS: AZITHROMYCIN 500 MG in SODIUM CHLORIDE 0.9% 250 ML IVPB STA (03:29)
[2023-07-09] MEDS: SODIUM CHLORIDE 0.9% 500 ML 500 ML IV ONE (03:31)
[2023-07-09] MEDS: methylPREDNISolone SOD SUCCI 125 MG/2 ML VIAL IV SCH (05:24)
[2023-07-09] MEDS: IPRATROPIUM-ALBUTEROL 3 ML NEB INHALATION PRN (05:34)
[2023-07-09] MEDS: IPRATROPIUM-ALBUTEROL 3 ML NEB INHALATION SCH (07:34)
[2023-07-09] MEDS: AMPICILLIN-SULBACTAM 3 GM in SODIUM CHLORIDE 0.9% 100 ML IVPB SCH (12:55)
[2023-07-09] MEDS: MORPHINE SULFATE 4 MG/ML SYRINGE IVP PRN (13:38)
--- NOTE | 2023-07-09 15:46 | P.CNPUL ---
History of Present Illness Consult date: 07/09/23 Reason for consult: dyspnea History of present illness: This is a 63-year-old male patient who is coming in with increased shortness of breath, cough and congestion. The patient is producing copious amount of thick purulent yellowish sputum in large quantities. Pneumonia was suspected. Nevertheless, the chest x-ray that was done emergency showed no acute pulmonary filtrates or consolidations. The patient has noted laryngeal cancer and the patient has received chemoradiation therapy to his neck. He also has previous history of small cell lung cancer that was diagnosed back in 2019. At that time, the patient developed a left cervical lymph node and the fine-needle aspirate was consistent with small cell carcinoma. The patient was treated with chemoradiation therapy which she completed on 08/30/2019 and the patient had adequate response. Subsequently, he was found to have a left laryngeal uptake and a follow-up PET scan that was done 10/08/2022 and he was found to have laryngeal cancer treated with chemoradiation therapy. He continues to have difficulty with hoarseness and dysphagia. He has PEG tube for enteral feeding and nutritional support. He is taking oral intake and supplements himself with enteral feeding via his PEG tube. Denies having any aspiration. In the emergency department, the patient was afebrile and hemodynamically stable. He was placed on oxygen at 3 L and the patient's current pulse ox in the order of 98%. His white cell count at 17.7 with hemoglobin of 13.6 and a platelet count of 358. Normal coagulation profile. Normal electrolytes. Viral screen has been negative including COVID-19 RSV and influenza. Review of Systems CONSTITUTIONAL: Denies any recent significant weight loss or weight gain. EYES: Denies change in vision. EARS, NOSE, MOUTH, THROAT: Denies headaches. Admit sore throat. CARDIOVASCULAR: Denies chest pain, palpitations or syncopal episodes. RESPIRATORY: See HPI GASTROINTESTINAL: Denies change in appetite, abdominal pain, nausea and vom iting, or diarrhea GENITOURINARY: Denies hematuria, denies infections. MUSKULOSKELETAL: Denies pain, denies swelling. INTEGUMENTARY: Denies rash, denies eczema. NEUROLOGICAL: Denies recent memory loss, no recent seizure activity. PSYCHIATRIC: Denies anxiety, denies depression. 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, recent dx of laryngeal cancer dx mar 2022 History of Any Multi-Drug Resistant Organisms: None Reported Past Surgical History: No Surgical Hx Reported Additional Past Surgical History / Comment(s): Bronchoscopies, colonoscopy Past Anesthesia/Blood Transfusion Reactions: No Reported Reaction Past Psychological History: No Psychological Hx Reported Smoking Status: Former smoker Past Alcohol Use History: None Reported Past Drug Use History: Marijuana - Past Family History Mother Family Medical History: No Reported History Father Family Medical History: Cancer Additional Family Medical History / Comment(s): Prostate ca Medications and Allergies Home Medications Medication Instructions Recorded Confirmed Type Lidocaine Viscous 2% [Xylocaine 5 ml MUCOUS MEM Q1H PRN 01/10/23 07/09/23 His tory Viscous] Albuterol Inhaler [Ventolin Hfa 2 puff INHALATION RT-Q6H PRN 07/09/23 07/09/23 History Inhaler] HYDROcodone/APAP [[place] Elixir 15 ml PO Q6H PRN 07/09/23 07/09/23 History 7.5-325Mg/15Ml] Ipratropium-Albuterol Nebulize 3 ml INHALATION RT-QID PRN 07/09/23 07/09/23 His tory [Duoneb 0.5 mg-3 mg/3 ml Soln] Temazepam [Restoril] 15 mg PO HS PRN 07/09/23 07/09/23 History Vitamin E (Dl,Tocopheryl Acet) 400 unit PO DAILY 07/09/23 07/09/23 History [Vitamin E (400 Iu = 180 mg)] ondansetron HCL [Zofran] 8 mg PO Q12HR 07/09/23 07/09/23 History predniSONE See Taper PO DIRECTED 07/09/23 07/09/23 History Allergies Allergy/AdvReac Type Severity Reaction Status Date / Time No Known Allergies Allergy Verified 07/09/23 12:46 Physical Exam Vitals: Vital Signs Temp Pulse Resp BP Pulse Ox FiO2 07/09/23 11:31 105 H 18 07/09/23 11:22 94 18 07/09/23 09:50 100 20 130/101 100 07/09/23 07:49 108 H 16 07/09/23 07:34 106 H 17 07/09/23 07:32 40 07/09/23 07:22 114 H 20 144/100 98 07/09/23 06:00 105 H 24 138/98 98 07/09/23 05:54 121 H 07/09/23 05:37 111 H 07/09/23 05:31 111 H 20 118/96 97 07/09/23 05:00 40 07/09/23 03:24 110 H 19 128/100 100 07/09/23 01:54 14 07/09/23 01:44 40 07/09/23 01:43 40 07/09/23 01:38 98.2 F 116 H 21 147/103 100 Intake and Output 07/08/23 07/09/23 07/09/23 22:59 06:59 14:59 Other: Weight 54.431 kg GENERAL EXAM: Alert, pleasant 62-year-old male, on 3 L of oxygen by nasal cannula. He is having frequent coughing "fits and the patient is producing copious amount of thick purulent yellowish respiratory secretions. HEAD: Normocephalic and atraumatic EYES: Normal reaction of pupils, equal size. NOSE: Clear with pink turbinates. THROAT: Positive for mild inflammation. NECK: No masses, no JVD. CHEST: No chest wall deformity. LUNGS: No obvious stridor on auscultation of the neck. Equal air entry with few scattered rhonchi. CVS: S1 and S2 normal with no audible murmur, regular rhythm. No extra heart sounds ABDOMEN: PEG tube exit site is clean and dry. No hepatosplenomegaly, active bowel sounds, no guarding or rigidity. SPINE: No scoliosis or deformity SKIN: There is open wound and erythema around the neck CENTRAL NERVOUS SYSTEM: No focal deficits, tone is normal in all 4 extremities. EXTREMITIES: There is no peripheral edema, clubbing, or cyanosis. Peripheral pulses are intact. Results - Laboratory Findings CBC and BMP: 07/09/23 01:33 07/09/23 01:33 ABG WBC 17.7 k/uL (3.8-10.6) H 07/09/23 01:33 RBC 4.56 m/uL (4.30-5.90) 07/09/23 01:33 Hgb 13.6 gm/dL (13.0-17.5) 07/09/23 01:33 Hct 42.4 % (39.0-53.0) 07/09/23 01:33 MCV 92.8 fL (80.0-100.0) 07/09/23 01:33 MCH 29.9 pg (25.0-35.0) 07/09/23 01:33 MCHC 32.2 g/dL (31.0-37.0) 07/09/23 01:33 RDW 12.6 % (11.5-15.5) 07/09/23 01:33 Plt Count 358 k/uL (150-450) 07/09/23 01:33 MPV 6.8 07/09/23 01:33 Neutrophils % 81 % 07/09/23 01:33 Lymphocytes % 8 % 07/09/23 01:33 Monocytes % 7 % 07/09/23 01:33 Eosinophils % 1 % 07/09/23 01:33 Basophils % 0 % 07/09/23 01:33 Neutrophils # 14.3 k/uL (1.3-7.7) H 07/09/23 01:33 Lymphocytes # 1.5 k/uL (1.0-4.8) 07/09/23 01:33 Monocytes # 1.3 k/uL (0-1.0) H 07/09/23 01:33 Eosinophils # 0.2 k/uL (0-0.7) 07/09/23 01:33 Basophils # 0.0 k/uL (0-0.2) 07/09/23 01:33 PT 10.6 sec (10.0-12.5) 07/09/23 01:33 INR 1.0 (<1.2) 07/09/23 01:33 APTT 22.9 sec (22.0-30.0) 07/09/23 01:33 Sodium 138 mmol/L (137-145) 07/09/23 01:33 Potassium 3.9 mmol/L (3.5-5.1) 07/09/23 01:33 Chloride 101 mmol/L (98-107) 07/09/23 01:33 Carbon Dioxide 30 mmol/L (22-30) 07/09/23 01:33 Anion Gap 7 mmol/L 07/09/23 01:33 BUN 30 mg/dL (9-20) H 07/09/23 01:33 Creatinine 0.64 mg/dL (0.66-1.25) L 07/09/23 01:33 Est GFR (CKD-EPI)AfAm >90 (>60 ml/min/1.73 sqM) 07/09/23 01:33 Est GFR (CKD-EPI)NonAf >90 (>60 ml/min/1.73 sqM) 07/09/23 01:33 Glucose 119 mg/dL (74-99) H 07/09/23 01:33 Plasma Lactic Acid Elan 0.7 mmol/L (0.7-2.0) 07/09/23 01:33 Calcium 9.1 mg/dL (8.4-10.2) 07/09/23 01:33 Magnesium 2.0 mg/dL (1.6-2.3) 07/09/23 01:33 Total Bilirubin 0.2 mg/dL (0.2-1.3) 07/09/23 01:33 AST 20 U/L (17-59) 07/09/23 01:33 ALT 20 U/L (4-49) 07/09/23 01:33 Alkaline Phosphatase 76 U/L (38-126) 07/09/23 01:33 Troponin I <0.012 ng/mL (0.000-0.034) 07/09/23 01:33 NT-Pro-B Natriuret Pep 92 pg/mL 07/09/23 01:33 Total Protein 6.0 g/dL (6.3-8.2) L 07/09/23 01:33 Albumin 3.5 g/dL (3.5-5.0) 07/09/23 01:33 Influenza Type A (PCR) Not Detected (Not Detectd) 07/09/23 03:35 Influenza Type B (PCR) Not Detected (Not Detectd) 07/09/23 03:35 RSV (PCR) Not Detected (Not Detectd) 07/09/23 03:35 SARS-CoV-2 (PCR) Not Detected (Not Detectd) 07/09/23 03:35 PT/INR, D-dimer PT 10.6 sec (10.0-12.5) 07/09/23 01:33 INR 1.0 (<1.2) 07/09/23 01:33 Abnormal lab findings: Abnormal Labs 07/09/23 07/09/23 01:33 01:33 WBC 17.7 H Neutrophils # 14.3 H Monocytes # 1.3 H BUN 30 H Creatinine 0.64 L Glucose 119 H Total Protein 6.0 L - Diagnostic Findings Chest x-ray: image reviewed Assessment and Plan Plan: Acute exacerbation of chronic COPD with purulent tracheobronchitis as the patient is producing copious amount of respiratory secretions. Pneumonia cannot be completely excluded. The patient may potentially have an early aspiration pneumonia. The patient will be covered with broad-spectrum antibiotics. Shortness of breath secondary to above History of small cell lung cancer diagnosed in 2019 treated with chemoradiation therapy diagnosis established by a fine-needle aspirate of the cervical lymph node and the patient was treated successfully Laryngeal cancer currently undergoing chemo/radiation therapy. Complicated by esophagitis and dysphagia Dysphagia secondary to above, PEG tube placement done on 01/13/2023. The patient currently is receiving enteral feeding for nutritional support and is supplements and soft with oral intake Chronic ongoing tobacco dependence Plan: Supplemental oxygen to maintain saturation above 90%, currently on 3 L nasal cannula DuoNeb nebulized treatments [id number] IV Solu-Medrol 60 mg every 6 hours IV Unasyn No evidence of stridor Obtain sputum Gram stain and culture Continue enteral feeding for nutritional support and the patient is currently on Jevity. Aspiration precautions Monitor the white cell count
--- NOTE | 2023-07-09 16:49 | P.HPIM ---
History of Present Illness H&P Date: 07/09/23 Chief Complaint: Shortness of breath 62-year-old male history of COPD, lung cancer, and laryngeal cancer presenting with worsening cough and dyspnea over the past 24 hours. No fever. No chest pain. No lower extremity pain or swelling. Patient has a whisper voice which she states has been present for at least the past 1 month, no acute change. Patient does states he recently finished chemotherapy. Patient was placed on CPAP during transport by paramedics with hypoxia and severe respiratory distress. Blood work completed in ED reveals a WBC of 17.7, hemoglobin of 13.6 and platelet count of 358, sodium 138, potassium 3.9, BUNs/creatinine of 30/0.64 and blood glucose of 119 In the ED patient received 3 treatments of albuterol but continues to have wheezing and decreased air entry bilaterally; he was started on IV steroids and IV antibiotics and is admitted for further treatment of COPD exacerbation Chest x-ray negative for acute cardiopulmonary findings EKG; Sinus tachycardia rate of 116, NC interval 128, QRS duration 82, QTc [address] segment elevation. Review of Systems REVIEW OF SYSTEMS: CONSTITUTIONAL: No fever, no malaise, no fatigue. HEENT: No recent visual problems or hearing problems. Denied any sore throat. CARDIOVASCULAR: No chest pain, orthopnea, PND, no palpitations, no syncope. PULMONARY: No shortness of breath, no cough, no hemoptysis. GASTROINTESTINAL: No diarrhea, no nausea, no vomiting, no abdominal pain. NEUROLOGICAL: No headaches, no weakness, no numbness. HEMATOLOGICAL: Denies any bleeding or petechiae. GENITOURINARY: Denies any burning micturition, frequency, or urgency. MUSCULOSKELETAL/RHEUMATOLOGICAL: Denies any joint pain, swelling, or any muscle pain. ENDOCRINE: Denies any polyuria or polydipsia. The rest of the 14-point review of systems is negative. 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, recent dx of laryngeal cancer dx mar 2022 History of Any Multi-Drug Resistant Organisms: None Reported Past Surgical History: No Surgical Hx Reported Additional Past Surgical History / Comment(s): Bronchoscopies, colonoscopy Past Anesthesia/Blood Transfusion Reactions: No Reported Reaction Past Psychological History: No Psychological Hx Reported Smoking Status: Former smoker Past Alcohol Use History: None Reported Past Drug Use History: Marijuana - Past Family History Mother Family Medical History: No Reported History Father Family Medical History: Cancer Additional Family Medical History / Comment(s): Prostate ca Medications and Allergies Home Medications Medication Instructions Recorded Confirmed Type Lidocaine Viscous 2% [Xylocaine 5 ml MUCOUS MEM Q1H PRN 01/10/23 07/09/23 History Viscous] Albuterol Inhaler [Ventolin Hfa 2 puff INHALATION RT-Q6H PRN 07/09/23 07/09/23 History Inhaler] HYDROcodone/APAP [[place] Elixir 15 ml PO Q6H PRN 07/09/23 07/09/23 History 7.5-325Mg/15Ml] Ipratropium-Albuterol Nebulize 3 ml INHALATION RT-QID PRN 07/09/23 07/09/23 History [Duoneb 0.5 mg-3 mg/3 ml Soln] Temazepam [Restoril] 15 mg PO HS PRN 07/09/23 07/09/23 History Vitamin E (Dl,Tocopheryl Acet) 400 unit PO DAILY 07/09/23 07/09/23 History [Vitamin E (400 Iu = 180 mg)] ondansetron HCL [Zofran] 8 mg PO Q12HR 07/09/23 07/09/23 History predniSONE See Taper PO DIRECTED 07/09/23 07/09/23 History Allergies Allergy/AdvReac Type Severity Reaction Status Date / Time No Known Allergies Allergy Verified 07/09/23 12:46 Physical Exam Vitals: Vital Signs Temp Pulse Resp BP Pulse Ox FiO2 07/09/23 09:50 100 20 130/101 100 07/09/23 07:49 108 H 16 07/09/23 07:34 106 H 17 07/09/23 07:32 40 07/09/23 07:22 114 H 20 144/100 98 07/09/23 06:00 105 H 24 138/98 98 07/09/23 05:54 121 H 07/09/23 05:37 111 H 07/09/23 05:31 111 H 20 118/96 97 07/09/23 05:00 40 07/09/23 03:24 110 H 19 128/100 100 07/09/23 01:54 14 07/09/23 01:44 40 07/09/23 01:43 40 07/09/23 01:38 98.2 F 116 H 21 147/103 100 Intake and Output 07/08/23 07/09/23 07/09/23 22:59 06:59 14:59 Other: Weight 54.431 kg General appearance: alert, in distress Head exam: Present: atraumatic, normocephalic Eye exam: Present: normal appearance, PERRL ENT exam: Present: normal exam Neck exam: Present: normal inspection Respiratory exam: Present: respiratory distress, wheezes, accessory muscle use, decreased breath sounds. Absent: stridor Cardiovascular Exam: Present: regular rate, normal rhythm GI/Abdominal exam: Present: soft. Absent: distended, tenderness Neurological exam: Present: alert, oriented X3, CN II-XII intact. Absent: motor sensory deficit Psychiatric exam: Present: normal affect, normal mood Skin exam: Present: warm, dry, intact Results CBC & Chem 7: 07/09/23 01:33 07/09/23 01:33 Labs: Abnormal Lab Results - Last 24 Hours (Table) 07/09/23 07/09/23 Range/Units 01:33 01:33 WBC 17.7 H (3.8-10.6) k/uL Neutrophils # 14.3 H (1.3-7.7) k/uL Monocytes # 1.3 H (0-1.0) k/uL BUN 30 H (9-20) mg/dL Creatinine 0.64 L (0.66-1.25) mg/dL Glucose 119 H (74-99) mg/dL Total Protein 6.0 L (6.3-8.2) g/dL Assessment and Plan Assessment: 1. Acute exacerbation COPD; patient has been placed on IV Solu-Medrol 60 mg every 6 hours; DuoNeb nebulizer treatments 4 times daily and as needed; O2 at 3 L per nasal cannula -- Pulmonary service on board and agreeable to treatment 2. Possible pneumonia versus purulent tracheobronchitis; patient has been placed on IV Unasyn 3 g every 6 hours; blood cultures and sputum cultures obtained; we will monitor CBC, CRP and procalcitonin 3. Leukocytosis; likely related to purulent tracheobronchitis versus pneumonia; will monitor CBC, CRP and procalcitonin 4. Mild renal injury; slow IV fluid hydration with normal saline at rate of 75 cc an hour; avoid nephrotoxins and hypotension 5. History of small cell carcinoma of the lung; patient was treated with ch emotherapy 6. Laryngeal cancer complicated by esophagitis and dysphagia; currently undergoing chemo and radiation therapy 7. Dysphagia; patient underwent PEG tube placement on 01/13/2023; remains on tube feeding for nutritional support; currently on Jevity; aspiration precautions in place DVT prophylaxis; SCDs/subcu heparin CODE STATUS; full code
[2023-07-09] MEDS: HEPARIN SODIUM,PORCINE 5,000 UNIT/ML 1 ML VIAL SQ SCH (22:20)
[2023-07-09] MEDS: MAG HYDROX/AL HYDROX/SIMETH 30 ML CUP PO PRN (22:54)
[2023-07-10] MEDS: PANTOPRAZOLE 40 MG/10 ML VIAL IVP SCH (08:33)
[2023-07-10 08:39] LABS: Basophils % (A) 0 %; Eosinophils % (A) 0 %; HCT 42.1 % (39.0-53.0); HGB 13.3 gm/dL (13.0-17.5); Lymphocytes # (A) 0.4 k/uL (1.0-4.8); Lymphocytes % (A) 2 %; MCH 29.9 pg (25.0-35.0); MCHC 31.6 g/dL (31.0-37.0); MCV 94.7 fL (80.0-100.0); Mean Platelet Volume 7.2; Monocytes # (A) 0.9 k/uL (0-1.0); Monocytes % (A) 3 %; Neutrophils # (A) 24.6 k/uL (1.3-7.7); Neutrophils % (A) 94 %; Platelet Count 346 k/uL (150-450); RBC 4.44 m/uL (4.30-5.90); RDW 12.5 % (11.5-15.5); WBC 26.3 k/uL (3.8-10.6)
[2023-07-10 09:36] LABS: African American GFR (CKD) >90 (>60 ml/min/1.73 sqM); Anion Gap 3 mmol/L; Blood Urea Nitrogen 22 mg/dL (9-20); Calcium 9.1 mg/dL (8.4-10.2); Carbon Dioxide 29 mmol/L (22-30); Chloride 103 mmol/L (98-107); Glucose 118 mg/dL (74-99); Non-African American GFR(CKD) >90 (>60 ml/min/1.73 sqM); Potassium 4.5 mmol/L (3.5-5.1); Sodium 135 mmol/L (137-145)
[2023-07-10] MEDS: ACETAMINOPHEN TAB 325 MG TAB PO PRN (12:01)
--- NOTE | 2023-07-10 14:49 | P.PN ---
Subjective Progress Note Date: 07/10/23 This is a 63-year-old male patient who is coming in with increased shortness of breath, cough and congestion. The patient is producing copious amount of thick purulent yellowish sputum in large quantities. Pneumonia was suspected. Nevertheless, the chest x-ray that was done emergency showed no acute pulmonary filtrates or consolidations. The patient has noted laryngeal cancer and the patient has received chemoradiation therapy to his neck. He also has previous history of small cell lung cancer that was diagnosed back in 2019. At that time, the patient developed a left cervical lymph node and the fine-needle aspirate was consistent with small cell carcinoma. The patient was treated with chemoradiation therapy which she completed on 08/30/2019 and the patient had adequate response. Subsequently, he was found to have a left laryngeal uptake and a follow-up PET scan that was done 10/08/2022 and he was found to have laryngeal cancer treated with chemoradiation therapy. He continues to have difficulty with hoarseness and dysphagia. He has PEG tube for enteral feeding and nutritional support. He is taking oral intake and supplements himself with enteral feeding via his PEG tube. Denies having any aspiration. In the emergency department, the patient was afebrile and hemodynamically stable. He was placed on oxygen at 3 L and the patient's current pulse ox in the order of 98%. His white cell count at 17.7 with hemoglobin of 13.6 and a platelet count of 358. Normal coagulation profile. Normal electrolytes. Viral screen has been negative including COVID-19 RSV and influenza. On today's evaluation of 07/10/2023, the patient is being seen for a follow-up. The patient is still in the emergency department. He reports improvement since yesterday. His cough and congestion is still present and the patient is producing still copious amount of respiratory secretions. Nevertheless, the monitor as per secretions improved since yesterday. The patient is afebrile. The patient is hemodynamically stable. The patient is currently on broad- spectrum antibiotics and he is on IV Unasyn. Sputum Gram stain and culture is still pending. The preliminary Gram stain is showing moderate amount of gram- positive cocci and the y rare yeast. The patient remains on 2 L of oxygen by nasal cannula. The patient is afebrile. WBC count is at 26 with a hemoglobin 15.3 and a platelet count of 346. BUN is 22 with a creatinine of 0.5 and a sodium levels at 135. The viral cultures were essentially negative. The chest x-ray at time of admission shows no evidence of any acute consolidation or airspace disease. Objective - Vital Signs Vital signs: Vital Signs Temp 97.8 F 07/09/23 17:00 Pulse 94 07/10/23 11:49 Resp 18 07/10/23 11:49 BP 124/83 07/10/23 11:48 Pulse Ox 100 07/10/23 11:48 FiO2 40 07/10/23 08:31 - Exam GENERAL EXAM: Alert, pleasant 62-year-old male, on 3 L of oxygen by nasal cannula. He is having frequent coughing "fits and the patient is producing copious amount of thick purulent yellowish respiratory secretions. HEAD: Normocephalic and atraumatic EYES: Normal reaction of pupils, equal size. NOSE: Clear with pink turbinates. THROAT: Positive for mild inflammation. NECK: No masses, no JVD. CHEST: No chest wall deformity. LUNGS: No obvious stridor on auscultation of the neck. Equal air entry with few scattered rhonchi. CVS: S1 and S2 normal with no audible murmur, regular rhythm. No extra heart sounds ABDOMEN: PEG tube exit site is clean and dry. No hepatosplenomegaly, active bowel sounds, no guarding or rigidity. SPINE: No scoliosis or deformity SKIN: There is open wound and erythema around the neck CENTRAL NERVOUS SYSTEM: No focal deficits, tone is normal in all 4 extremities. EXTREMITIES: There is no peripheral edema, clubbing, or cyanosis. Peripheral pulses are intact. - Labs CBC & Chem 7: 07/10/23 07:44 07/10/23 07:44 Labs: Abnormal Lab Results - Last 24 Hours (Table) 07/10/23 07/10/23 Range/Units 07:44 07:44 WBC 26.3 H (3.8-10.6) k/uL Neutrophils # 24.6 H (1.3-7.7) k/uL Lymphocytes # 0.4 L (1.0-4.8) k/uL Sodium 135 L (137-145) mmol/L BUN 22 H (9-20) mg/dL Creatinine 0.53 L (0.66-1.25) mg/dL Glucose 118 H (74-99) mg/dL Microbiology - Last 24 Hours (Table) 07/09/23 13:00 Gram Stain - Preliminary Sputum Assessment and Plan Plan: Acute exacerbation of chronic COPD with purulent tracheobronchitis as the patient is producing copious amount of respiratory secretions. Pneumonia cannot be completely excluded. The patient may potentially have an early aspiration pneumonia. The patient will be covered with broad-spectrum antibiotics. The Gram stain is showing gram-positive cocci with rare yeast. The patient is currently on Unasyn. Clinically reports improvement since yesterday. Leukocytosis, likely secondary to above Shortness of breath secondary to above History of small cell lung cancer diagnosed in 2019 treated with chemoradiation therapy diagnosis established by a fine-needle aspirate of the cervical lymph node and the patient was treated successfully Laryngeal cancer currently undergoing chemo/radiation therapy. Complicated by esophagitis and dysphagia Dysphagia secondary to above, PEG tube placement done on 01/13/2023. The patient currently is receiving enteral feeding for nutritional support and is supplements and soft with oral intake Chronic ongoing tobacco dependence Plan: Supplemental oxygen to maintain saturation above 90%, currently on 3 L nasal cannula DuoNeb nebulized treatments [id number] IV Solu-Medrol 60 mg every 6 hours IV Unasyn Monitor the white cell count Awaiting final results of the sputum Gram stain and culture No evidence of stridor Obtain sputum Gram stain and culture Continue enteral feeding for nutritional support and the patient is currently on Jevity. Aspiration precautions, the patient will be also allowed to take some oral food which will be in the form of soft diet. Monitor the white cell count We will continue to follow
[2023-07-10] MEDS: CALCIUM CARBONATE 500 MG CHEWABLE PO PRN (16:17)
[2023-07-10] MEDS: HYDROcodone/APAP 15 ML SOLUTION PO PRN (16:17)
[2023-07-10] MEDS: LIDOCAINE VISCOUS 2% 15 ML CUP MUCOUS MEM PRN (16:17)
[2023-07-10] MEDS: ONDANSETRON 4 MG TAB PO SCH (16:17)
--- NOTE | 2023-07-10 16:24 | P.PN ---
Subjective Progress Note Date: 07/10/23 62-year-old male history of COPD, lung cancer, and laryngeal cancer presenting with worsening cough and dyspnea over the past 24 hours. No fever. No chest pain. No lower extremity pain or swelling. Patient has a whisper voice which she states has been present for at least the past 1 month, no acute change. Patient does states he recently finished chemotherapy. Patient was placed on CPAP during transport by paramedics with hypoxia and severe respiratory distress. Blood work completed in ED reveals a WBC of 17.7, hemoglobin of 13.6 and platelet count of 358, sodium 138, potassium 3.9, BUNs/creatinine of 30/0.64 and blood glucose of 119 In the ED patient received 3 treatments of albuterol but continues to have wheezing and decreased air entry bilaterally; he was started on IV steroids and IV antibiotics and is admitted for further treatment of COPD exacerbation Chest x-ray negative for acute cardiopulmonary findings EKG; Sinus tachycardia rate of 116, SC interval 128, QRS duration 82, QTc [address] segment elevation. --Patient has dietary consult in place for resuming tube feeding; we will start patient on a diet also -Reports uncontrolled pain and wants to resume liquid [place] with morphine for breakthrough pain Objective - Vital Signs Vital signs: Vital Signs Temp 97.8 F 07/09/23 17:00 Pulse 88 07/10/23 08:42 Resp 18 07/10/23 08:42 BP 125/84 07/10/23 08:02 Pulse Ox 98 07/10/23 08:02 FiO2 40 07/10/23 08:31 - Exam Head exam: Present: atraumatic, normocephalic Eye exam: Present: normal appearance, PERRL ENT exam: Present: normal exam Neck exam: Present: normal inspection Respiratory exam: Present: respiratory distress, wheezes, accessory muscle use, decreased breath sounds. Absent: stridor Cardiovascular Exam: Present: regular rate, normal rhythm GI/Abdominal exam: Present: soft. Absent: distended, tenderness Neurological exam: Present: alert, oriented X3, CN II-XII intact. Absent: motor sensory deficit Psychiatric exam: Present: normal affect, normal mood Skin exam: Present: warm, dry, intact - Labs CBC & Chem 7: 07/10/23 07:44 07/10/23 07:44 Labs: Abnormal Lab Results - Last 24 Hours (Table) 07/10/23 Range/Units 07:44 WBC 26.3 H (3.8-10.6) k/uL Neutrophils # 24.6 H (1.3-7.7) k/uL Lymphocytes # 0.4 L (1.0-4.8) k/uL Microbiology - Last 24 Hours (Table) 07/09/23 13:00 Gram Stain - Preliminary Sputum Assessment and Plan Assessment: 1. Acute exacerbation COPD; patient has been placed on IV Solu-Medrol 60 mg every 6 hours; DuoNeb nebulizer treatments 4 times daily and as needed; O2 at 3 L per nasal cannula -- Pulmonary service on board and agreeable to treatment 2. Possible pneumonia versus purulent tracheobronchitis; patient has been placed on IV Unasyn 3 g every 6 hours; blood cultures and sputum cultures obtained; we will monitor CBC, CRP and procalcitonin 3. Leukocytosis; likely related to purulent tracheobronchitis versus pneumonia; will monitor CBC, CRP and procalcitonin 4. Mild renal injury; slow IV fluid hydration with normal saline at rate of 75 cc an hour; avoid nephrotoxins and hypotension 5. History of small cell carcinoma of the lung; patient was treated with chemotherapy 6. Laryngeal cancer complicated by esophagitis and dysphagia; currently undergoing chemo and radiation therapy 7. Dysphagia; patient underwent PEG tube placement on 01/13/2023; remains on tube feeding for nutritional support; currently on Jevity; aspiration precautions in place DVT prophylaxis; SCDs/subcu heparin CODE STATUS; full code
[2023-07-10 16:34] LABS: Glucose,Whole Blood 197 mg/dL (70-110)
[2023-07-11] MEDS: HYDROcodone/APAP 15 ML SOLUTION PO SCH (00:02)
[2023-07-11 00:15] LABS: Glucose,Whole Blood 117 mg/dL (70-110)
[2023-07-11 06:07] LABS: Glucose,Whole Blood 212 mg/dL (70-110)
[2023-07-11 07:30] LABS: Basophils % (A) 0 %; Eosinophils % (A) 0 %; HCT 36.6 % (39.0-53.0); HGB 12.4 gm/dL (13.0-17.5); Lymphocytes # (A) 0.4 k/uL (1.0-4.8); Lymphocytes % (A) 1 %; MCH 31.9 pg (25.0-35.0); MCHC 33.9 g/dL (31.0-37.0); MCV 94.1 fL (80.0-100.0); Mean Platelet Volume 7.9; Monocytes # (A) 0.7 k/uL (0-1.0); Monocytes % (A) 3 %; Neutrophils % (A) 95 %; Platelet Count 309 k/uL (150-450); RBC 3.89 m/uL (4.30-5.90); RDW 12.8 % (11.5-15.5); WBC 26.3 k/uL (3.8-10.6)
[2023-07-11 08:17] LABS: African American GFR (CKD) >90 (>60 ml/min/1.73 sqM); Anion Gap 4 mmol/L; Blood Urea Nitrogen 22 mg/dL (9-20); Calcium 8.7 mg/dL (8.4-10.2); Carbon Dioxide 27 mmol/L (22-30); Chloride 104 mmol/L (98-107); Glucose 117 mg/dL (74-99); Non-African American GFR(CKD) >90 (>60 ml/min/1.73 sqM); Potassium 4.4 mmol/L (3.5-5.1); Sodium 135 mmol/L (137-145)
[2023-07-11 11:56] LABS: Glucose,Whole Blood 111 mg/dL (70-110)
--- NOTE | 2023-07-11 14:12 | P.PN ---
Subjective Progress Note Date: 07/11/23 62-year-old male history of COPD, lung cancer, and laryngeal cancer presenting with worsening cough and dyspnea over the past 24 hours. No fever. No chest pain. No lower extremity pain or swelling. Patient has a whisper voice which she states has been present for at least the past 1 month, no acute change. Patient does states he recently finished chemotherapy. Patient was placed on CPAP during transport by paramedics with hypoxia and severe respiratory distress. Blood work completed in ED reveals a WBC of 17.7, hemoglobin of 13.6 and platelet count of 358, sodium 138, potassium 3.9, BUNs/creatinine of 30/0.64 and blood glucose of 119 In the ED patient received 3 treatments of albuterol but continues to have wheezing and decreased air entry bilaterally; he was started on IV steroids and IV antibiotics and is admitted for further treatment of COPD exacerbation Chest x-ray negative for acute cardiopulmonary findings EKG; Sinus tachycardia rate of 116, [place] interval 128, QRS duration 82, QTc [address] segment elevation. --Patient has dietary consult in place for resuming tube feeding; we will start patient on a diet also -Reports uncontrolled pain and wants to resume liquid [place] with morphine for breakthrough pain 07/10. Patient seen and examined. States breathing is improved, currently not requiring any oxygen. Cough is improved REVIEW OF SYSTEMS: CONSTITUTIONAL: No fever, no malaise,. CARDIOVASCULAR: No chest pain, no palpitations, no syncope. PULMONARY: No shortness of breath, no cough, GASTROINTESTINAL: No diarrhea, no nausea, no vomiting, no abdominal pain. NEUROLOGICAL: No headaches, no weakness, PHYSICAL EXAMINATION: GENERAL: The patient is alert and oriented x3, not in any acute distress. Well developed, well nourished. HEENT: Pupils are round and equally reacting to light. EOMI. No scleral icterus. No conjunctival pallor. Normocephalic, atraumatic. No pharyngeal erythema. No thyromegaly. CARDIOVASCULAR: S1 and S2 present. No murmurs, rubs, or gallops. PULMONARY: Coarse breath sound bilaterally, no wheezing or crackles. ABDOMEN: Soft, nontender, nondistended, normoactive bowel sounds. No palpable organomegaly. MUSCULOSKELETAL: No joint swelling or deformity. EXTREMITIES: No cyanosis, clubbing, or pedal edema. NEUROLOGICAL: Gross neurological examination did not reveal any focal deficits. SKIN: No rashes. Assessment and plan 1. Acute exacerbation COPD; patient has been placed on IV Solu-Medrol 60 mg every 6 hours; DuoNeb nebulizer treatments 4 times daily and as needed; O2 at 3 L per nasal cannula Pulmonary following 2. Possible pneumonia versus purulent tracheobronchitis; patient has been placed on IV Unasyn 3 g every 6 hours; blood cultures and sputum cultures obtained; pulmonary following 3. Leukocytosis; likely related to purulent tracheobronchitis versus pneumonia; will monitor CBC, CRP and procalcitonin 4. Mild renal injury; slow IV fluid hydration with normal saline at rate of 75 cc an hour; avoid nephrotoxins and hypotension 5. History of small cell carcinoma of the lung; patient was treated with chemotherapy 6. Laryngeal cancer complicated by esophagitis and dysphagia; currently undergoing chemo and radiation therapy 7. Dysphagia; patient underwent PEG tube placement on 01/13/2023; remains on tu be feeding for nutritional support; currently on Jevity; aspiration precautions in place Labs and medication were reviewed.. Continue same treatment. Continue with symptomatic treatment. Resume home medication. Monitor labs and vitals. DVT and GI prophylaxis. Further recommendations as per clinical course of the patient Dictation was produced using [employer] dictation software. please excuse any grammatical, word or spelling errors. Objective - Vital Signs Vital signs: Vital Signs Temp 97.9 F 07/11/23 08:15 Pulse 81 07/11/23 08:15 Resp 20 07/11/23 08:15 BP 135/77 07/11/23 08:15 Pulse Ox 98 07/11/23 08:15 FiO2 40 07/10/23 08:31 Intake & Output 07/10/23 07/11/23 07/11/23 18:59 06:59 18:59 Intake Total 236 40 240 Balance 236 40 240 Weight 54.431 kg Intake: Oral 236 40 240 Other: # Voids 2 - Labs CBC & Chem 7: 07/11/23 05:38 07/11/23 05:38 Labs: Abnormal Lab Results - Last 24 Hours (Table) 07/10/23 07/11/23 07/11/23 Range/Units 16:32 00:14 05:38 WBC 26.3 H (3.8-10.6) k/uL RBC 3.89 L (4.30-5.90) m/uL Hgb 12.4 L (13.0-17.5) gm/dL Hct 36.6 L (39.0-53.0) % Neutrophils # 25.0 H (1.3-7.7) k/uL Lymphocytes # 0.4 L (1.0-4.8) k/uL Sodium (137-145) mmol/L BUN (9-20) mg/dL Creatinine (0.66-1.25) mg/dL Glucose (74-99) mg/dL POC Glucose (mg/dL) 197 H 117 H (70-110) mg/dL 07/11/23 07/11/23 Range/Units 05:38 06:05 WBC (3.8-10.6) k/uL RBC (4.30-5.90) m/uL Hgb (13.0-17.5) gm/dL Hct (39.0-53.0) % Neutrophils # (1.3-7.7) k/uL Lymphocytes # (1.0-4.8) k/uL Sodium 135 L (137-145) mmol/L BUN 22 H (9-20) mg/dL Creatinine 0.54 L (0.66-1.25) mg/dL Glucose 117 H (74-99) mg/dL POC Glucose (mg/dL) 212 H (70-110) mg/dL Microbiology - Last 24 Hours (Table) 07/09/23 13:00 Gram Stain - Final Sputum Sputum Culture - Final 07/09/23 02:00 Blood Culture - Preliminary Blood 07/09/23 01:45 Blood Culture - Preliminary Blood
--- NOTE | 2023-07-11 16:54 | P.PN ---
Subjective Progress Note Date: 07/11/23 This is a 63-year-old male patient who is coming in with increased shortness of breath, cough and congestion. The patient is producing copious amount of thick purulent yellowish sputum in large quantities. Pneumonia was suspected. Nevertheless, the chest x-ray that was done emergency showed no acute pulmonary filtrates or consolidations. The patient has noted laryngeal cancer and the patient has received chemoradiation therapy to his neck. He also has previous history of small cell lung cancer that was diagnosed back in 2019. At that time, the patient developed a left cervical lymph node and the fine-needle aspirate was consistent with small cell carcinoma. The patient was treated with chemoradiation therapy which she completed on 08/30/2019 and the patient had adequate response. Subsequently, he was found to have a left laryngeal uptake and a follow-up PET scan that was done 10/08/2022 and he was found to have laryngeal cancer treated with chemoradiation therapy. He continues to have difficulty with hoarseness and dysphagia. He has PEG tube for enteral feeding and nutritional support. He is taking oral intake and supplements himself with enteral feeding via his PEG tube. Denies having any aspiration. In the emergency department, the patient was afebrile and hemodynamically stable. He was placed on oxygen at 3 L and the patient's current pulse ox in the order of 98%. His white cell count at 17.7 with hemoglobin of 13.6 and a platelet count of 358. Normal coagulation profile. Normal electrolytes. Viral screen has been negative including COVID-19 RSV and influenza. On today's evaluation of 07/10/2023, the patient is being seen for a follow-up. The patient is still in the emergency department. He reports improvement since yesterday. His cough and congestion is still present and the patient is producing still copious amount of respiratory secretions. Nevertheless, the monitor as per secretions improved since yesterday. The patient is afebrile. The patient is hemodynamically stable. The patient is currently on broad- spectrum antibiotics and he is on IV Unasyn. Sputum Gram stain and culture is still pending. The preliminary Gram stain is showing moderate amount of gram- positive cocci and the y rare yeast. The patient remains on 2 L of oxygen by na seun cannula. The patient is afebrile. WBC count is at 26 with a hemoglobin 15.3 and a platelet count of 346. BUN is 22 with a creatinine of 0.5 and a sodium levels at 135. The viral cultures were essentially negative. The chest x-ray at time of admission shows no evidence of any acute consolidation or airspace disease. The patient is seen today July 11, 2023 in follow-up on the selective care unit. He is currently sitting up in bed. Awake and alert in no acute distress. He is maintaining good O2 saturations in the 90s on room air. He is continued on Unasyn. Continued on bronchodilators. Continued on Solu-Medrol. Blood cultures revealed no growth. Sputum culture revealed no growth. White count 26.3. Hemoglobin 12.4. Platelets 309. Sodium 135. Potassium 4.4. Bicarb 27. BUN 22. Creatinine 0.54. Glucose 117. Objective - Vital Signs Vital signs: Vital Signs Temp 97.8 F 07/11/23 11:50 Pulse 86 07/11/23 15:41 Resp 18 07/11/23 11:50 BP 138/87 07/11/23 11:50 Pulse Ox 97 07/11/23 11:50 FiO2 40 07/10/23 08:31 Intake & Output 07/10/23 07/11/23 07/11/23 18:59 06:59 18:59 Intake Total 236 40 480 Balance 236 40 480 Weight 54.431 kg 54.431 kg Intake: Oral 236 40 480 Other: # Voids 2 - Exam GENERAL EXAM: Alert, pleasant 62-year-old male, on room air. HEAD: Normocephalic and atraumatic EYES: Normal reaction of pupils, equal size. NOSE: Clear with pink turbinates. THROAT: Positive for mild inflammation. NECK: No masses, no JVD. CHEST: No chest wall deformity. LUNGS: No obvious stridor on auscultation of the neck. Equal air entry with few scattered rhonchi. CVS: S1 and S2 normal with no audible murmur, regular rhythm. No extra heart sounds ABDOMEN: PEG tube exit site is clean and dry. No hepatosplenomegaly, active bowel sounds, no guarding or rigidity. SPINE: No scoliosis or deformity SKIN: There is open wound and erythema around the neck CENTRAL NERVOUS SYSTEM: No focal deficits, tone is normal in all 4 extremities. EXTREMITIES: There is no peripheral edema, clubbing, or cyanosis. Peripheral pulses are intact. - Labs CBC & Chem 7: 07/11/23 05:38 07/11/23 05:38 Labs: Abnormal Lab Results - Last 24 Hours (Table) 07/11/23 07/11/23 07/11/23 Range/Units 00:14 05:38 05:38 WBC 26.3 H (3.8-10.6) k/uL RBC 3.89 L (4.30-5.90) m/uL Hgb 12.4 L (13.0-17.5) gm/dL Hct 36.6 L (39.0-53.0) % Neutrophils # 25.0 H (1.3-7.7) k/uL Lymphocytes # 0.4 L (1.0-4.8) k/uL Sodium 135 L (137-145) mmol/L BUN 22 H (9-20) mg/dL Creatinine 0.54 L (0.66-1.25) mg/dL Glucose 117 H (74-99) mg/dL POC Glucose (mg/dL) 117 H (70-110) mg/dL 07/11/23 07/11/23 Range/Units 06:05 11:54 WBC (3.8-10.6) k/uL RBC (4.30-5.90) m/uL Hgb (13.0-17.5) gm/dL Hct (39.0-53.0) % Neutrophils # (1.3-7.7) k/uL Lymphocytes # (1.0-4.8) k/uL Sodium (137-145) mmol/L BUN (9-20) mg/dL Creatinine (0.66-1.25) mg/dL Glucose (74-99) mg/dL POC Glucose (mg/dL) 212 H 111 H (70-110) mg/dL Microbiology - Last 24 Hours (Table) 07/09/23 02:00 Blood Culture - Preliminary Blood 07/09/23 01:45 Blood Culture - Preliminary Blood 07/09/23 13:00 Gram Stain - Final Sputum Sputum Culture - Final Assessment and Plan Assessment: Acute exacerbation of chronic COPD with purulent tracheobronchitis as the patient is producing copious amount of respiratory secretions. Pneumonia cannot be completely excluded. The patient may potentially have an early aspiration pneumonia. The patient will be covered with broad-spectrum antibiotics. The Gram stain is showing gram-positive cocci with rare yeast. The patient is currently on Unasyn. Clinically reports improvement Leukocytosis, likely secondary to above Shortness of breath secondary to above History of small cell lung cancer diagnosed in 2019 treated with chemoradiation therapy diagnosis established by a fine-needle aspirate of the cervical lymph node and the patient was treated successfully Laryngeal cancer currently undergoing chemo/radiation therapy. Complicated by esophagitis and dysphagia Dysphagia secondary to above, PEG tube placement done on 01/13/2023. The shahriar malone currently is receiving enteral feeding for nutritional support and is supplements and soft with oral intake Chronic ongoing tobacco dependence Plan: The patient was seen and evaluated Labs and medications reviewed Improved and on room air Remains on bronchodilators and steroids Remains on Unasyn Increase his activity as tolerated We will continue to follow I have personally seen and examined the patient, performed the documentation and the assessment and plan as written. Number of minutes spent on the visit: 10.
[2023-07-11] MEDS: PANTOPRAZOLE 40 MG TABLET PO SCH (20:32)
[2023-07-12] MEDS: LIDOCAINE VISCOUS 2% 15 ML CUP MUCOUS MEM PRN (00:24)
[2023-07-12 00:26] LABS: Glucose,Whole Blood 132 mg/dL (70-110)
[2023-07-12 06:09] LABS: Glucose,Whole Blood 118 mg/dL (70-110)
[2023-07-12 10:57] LABS: Basophils % (A) 0 %; Eosinophils % (A) 0 %; HCT 42.5 % (39.0-53.0); HGB 13.3 gm/dL (13.0-17.5); Lymphocytes # (A) 0.3 k/uL (1.0-4.8); Lymphocytes % (A) 1 %; MCH 30.1 pg (25.0-35.0); MCHC 31.3 g/dL (31.0-37.0); MCV 96.2 fL (80.0-100.0); Mean Platelet Volume 7.2; Monocytes # (A) 0.7 k/uL (0-1.0); Monocytes % (A) 4 %; Neutrophils % (A) 93 %; Platelet Count 312 k/uL (150-450); RBC 4.42 m/uL (4.30-5.90); RDW 12.7 % (11.5-15.5); WBC 18.2 k/uL (3.8-10.6)
[2023-07-12 11:03] LABS: ALT 159 U/L (4-49); AST 56 U/L (17-59); African American GFR (CKD) >90 (>60 ml/min/1.73 sqM); Albumin 3.2 g/dL (3.5-5.0); Alkaline Phosphatase 80 U/L (38-126); Anion Gap 5 mmol/L; Blood Urea Nitrogen 24 mg/dL (9-20); Calcium 8.8 mg/dL (8.4-10.2); Carbon Dioxide 28 mmol/L (22-30); Chloride 102 mmol/L (98-107); Glucose 155 mg/dL (74-99); Non-African American GFR(CKD) >90 (>60 ml/min/1.73 sqM); Potassium 4.2 mmol/L (3.5-5.1); Sodium 135 mmol/L (137-145); Total Bilirubin 0.4 mg/dL (0.2-1.3); Total Protein 5.5 g/dL (6.3-8.2)
[2023-07-12 12:14] LABS: Glucose,Whole Blood 140 mg/dL (70-110)
--- NOTE | 2023-07-12 13:50 | P.PN ---
Subjective Progress Note Date: 07/12/23 62-year-old male history of COPD, lung cancer, and laryngeal cancer presenting with worsening cough and dyspnea over the past 24 hours. No fever. No chest pain. No lower extremity pain or swelling. Patient has a whisper voice which she states has been present for at least the past 1 month, no acute change. Patient does states he recently finished chemotherapy. Patient was placed on CPAP during transport by paramedics with hypoxia and severe respiratory distress. Blood work completed in ED reveals a WBC of 17.7, hemoglobin of 13.6 and platelet count of 358, sodium 138, potassium 3.9, BUNs/creatinine of 30/0.64 and blood glucose of 119 In the ED patient received 3 treatments of albuterol but continues to have wheezing and decreased air entry bilaterally; he was started on IV steroids and IV antibiotics and is admitted for further treatment of COPD exacerbation Chest x-ray negative for acute cardiopulmonary findings EKG; Sinus tachycardia rate of 116, CA interval 128, QRS duration 82, QTc [address] segment elevation. --Patient has dietary consult in place for resuming tube feeding; we will start patient on a diet also -Reports uncontrolled pain and wants to resume liquid [place] with morphine for breakthrough pain 07/10. Patient seen and examined. States breathing is improved, currently not requiring any oxygen. Cough is improved 07/11. Patient seen and examined. Not requiring any oxygen. Shortness of breath is present on exertion. Blood work done this morning showed WBC 18.2, hemoglobin 13.3, platelet count 312, sodium 135, potassium 4.2, BUN 24, creatinine 0.64 REVIEW OF SYSTEMS: CONSTITUTIONAL: No fever, no malaise,. CARDIOVASCULAR: No chest pain, no palpitations, no syncope. PULMONARY: No shortness of breath, no cough, GASTROINTESTINAL: No diarrhea, no nausea, no vomiting, no abdominal pain. NEUROLOGICAL: No headaches, no weakness, PHYSICAL EXAMINATION: GENERAL: The patient is alert and oriented x3, not in any acute distress. Well developed, well nourished. HEENT: Pupils are round and equally reacting to light. EOMI. No scleral icterus. No conjunctival pallor. Normocephalic, atraumatic. No pharyngeal erythema. No thyromegaly. CARDIOVASCULAR: S1 and S2 present. No murmurs, rubs, or gallops. PULMONARY: Coarse breath sound bilaterally, no wheezing or crackles. ABDOMEN: Soft, nontender, nondistended, normoactive bowel sounds. No palpable organomegaly. MUSCULOSKELETAL: No joint swelling or deformity. EXTREMITIES: No cyanosis, clubbing, or pedal edema. NEUROLOGICAL: Gross neurological examination did not reveal any focal deficits. SKIN: No rashes. Assessment and plan 1. Acute exacerbation COPD; Continue breathing treatment Continue IV Solu-Medrol Pulmonology following 2. Possible pneumonia versus purulent tracheobronchitis; patient has been placed on IV Unasyn 3 g every 6 hours; blood cultures and sputum cultures obtained; pulmonary following 3. Leukocytosis; likely related to purulent tracheobronchitis versus pneumonia; will monitor CBC, CRP and procalcitonin 4. Mild renal injury; slow IV fluid hydration with normal saline at rate of 75 cc an hour; avoid nephrotoxins and hypotension 5. History of small cell carcinoma of the lung; patient was treated with chemotherapy 6. Laryngeal cancer complicated by esophagitis and dysphagia; currently undergoing chemo and radiation therapy 7. Dysphagia; patient underwent PEG tube placement on 01/13/2023; remains on tube feeding for nutritional support; currently on Jevity; aspiration precautions in place Labs and medication were reviewed.. Continue same treatment. Continue with symptomatic treatment. Resume home medication. Monitor labs and vitals. DVT and GI prophylaxis. Further recommendations as per clinical course of the patient Dictation was produced using [employer] dictation software. please excuse any grammatical, word or spelling errors. Objective - Vital Signs Vital signs: Vital Signs Temp 98.2 F 07/12/23 11:15 Pulse 100 07/12/23 12:36 Resp 18 07/12/23 11:15 BP 154/92 07/12/23 11:15 Pulse Ox 97 07/12/23 11:15 FiO2 40 07/10/23 08:31 Intake & Output 07/11/23 07/12/23 07/12/23 18:59 06:59 18:59 Intake Total 840 120 636 Balance 840 120 636 Weight 54.431 kg 69 kg Intake: Oral 840 120 636 Other: Voiding Method Toilet - Labs CBC & Chem 7: 07/12/23 10:39 07/12/23 10:39 Labs: Abnormal Lab Results - Last 24 Hours (Table) 07/12/23 07/12/23 07/12/23 Range/Units 00:24 06:04 10:39 WBC 18.2 H (3.8-10.6) k/uL Neutrophils # 17.0 H (1.3-7.7) k/uL Lymphocytes # 0.3 L (1.0-4.8) k/uL Sodium (137-145) mmol/L BUN (9-20) mg/dL Creatinine (0.66-1.25) mg/dL Glucose (74-99) mg/dL POC Glucose (mg/dL) 132 H 118 H (70-110) mg/dL ALT (4-49) U/L Total Protein (6.3-8.2) g/dL Albumin (3.5-5.0) g/dL 07/12/23 07/12/23 Range/Units 10:39 12:13 WBC (3.8-10.6) k/uL Neutrophils # (1.3-7.7) k/uL Lymphocytes # (1.0-4.8) k/uL Sodium 135 L (137-145) mmol/L BUN 24 H (9-20) mg/dL Creatinine 0.64 L (0.66-1.25) mg/dL Glucose 155 H (74-99) mg/dL POC Glucose (mg/dL) 140 H (70-110) mg/dL ALT 159 H (4-49) U/L Total Protein 5.5 L (6.3-8.2) g/dL Albumin 3.2 L (3.5-5.0) g/dL Microbiology - Last 24 Hours (Table) 07/09/23 02:00 Blood Culture - Preliminary Blood 07/09/23 01:45 Blood Culture - Preliminary Blood
--- NOTE | 2023-07-12 14:52 | P.PN ---
Subjective Progress Note Date: 07/12/23 Principal diagnosis: Acute exacerbation of COPD with acute. Tracheobronchitis This is a 63-year-old male patient who is coming in with increased shortness of breath, cough and congestion. The patient is producing copious amount of thick purulent yellowish sputum in large quantities. Pneumonia was suspected. Nevertheless, the chest x-ray that was done emergency showed no acute pulmonary filtrates or consolidations. The patient has noted laryngeal cancer and the patient has received chemoradiation therapy to his neck. He also has previous history of small cell lung cancer that was diagnosed back in 2019. At that time, the patient developed a left cervical lymph node and the fine-needle aspirate was consistent with small cell carcinoma. The patient was treated with chemoradiation therapy which she completed on 08/30/2019 and the patient had adequate response. Subsequently, he was found to have a left laryngeal uptake and a follow-up PET scan that was done 10/08/2022 and he was found to have laryngeal cancer treated with chemoradiation therapy. He continues to have difficulty with hoarseness and dysphagia. He has PEG tube for enteral feeding and nutritional support. He is taking oral intake and supplements himself with enteral feeding via his PEG tube. Denies having any aspiration. In the emergency department, the patient was afebrile and hemodynamically stable. He was placed on oxygen at 3 L and the patient's current pulse ox in the order of 98%. His white cell count at 17.7 with hemoglobin of 13.6 and a platelet count of 358. Normal coagulation profile. Normal electrolytes. Viral screen has been negative including COVID-19 RSV and influenza. On today's evaluation of 07/10/2023, the patient is being seen for a follow-up. The patient is still in the emergency department. He reports improvement since yesterday. His cough and congestion is still present and the patient is producing still copious amount of respiratory secretions. Nevertheless, the monitor as per secretions improved since yesterday. The patient is afebrile. The patient is hemodynamically stable. The patient is currently on broad- spectrum antibiotics and he is on IV Unasyn. Sputum Gram stain and culture is still pending. The preliminary Gram stain is showing moderate amount of gram- positive cocci and the y rare yeast. The patient remains on 2 L of oxygen by nasal cannula. The patient is afebrile. WBC count is at 26 with a hemoglobin 15.3 and a platelet count of 346. BUN is 22 with a creatinine of 0.5 and a sodium levels at 135. The viral cultures were essentially negative. The chest x-ray at time of admission shows no evidence of any acute consolidation or airspace disease. The patient is seen today July 11, 2023 in follow-up on the selective care unit. He is currently sitting up in bed. Awake and alert in no acute distress. He is maintaining good O2 saturations in the 90s on room air. He is continued on Unasyn. Continued on bronchodilators. Continued on Solu-Medrol. Blood cultures revealed no growth. Sputum culture revealed no growth. White count 26.3. Hemoglobin 12.4. Platelets 309. Sodium 135. Potassium 4.4. Bicarb 27. BUN 22. Creatinine 0.54. Glucose 117. Patient was reevaluated today on 07/12/2023, patient is improving, but not back to her baseline, continues to have intermittent cough and wheezing, no fever no chills no hemoptysis and no chest pain. Patient is afebrile, he is on room air, maintained on multiple bronchodilators steroids and antibiotics. Sputum cultures are mostly showing normal luz.Blood cultures are negative so far in the last 3 days. WBC count is 18.2 hemoglobin 13.3 basic metabolic profile is normal and renal profile is normal, chest x-ray on admission showed no evidence of active disease. Objective - Vital Signs Vital signs: Vital Signs Temp 98.2 F 07/12/23 11:15 Pulse 100 07/12/23 12:36 Resp 18 07/12/23 11:15 BP 154/92 07/12/23 11:15 Pulse Ox 97 07/12/23 11:15 FiO2 40 07/10/23 08:31 Intake & Output 07/11/23 07/12/23 07/12/23 18:59 06:59 18:59 Intake Total 840 120 636 Balance 840 120 636 Weight 54.431 kg 69 kg Intake: Oral 840 120 636 Other: Voiding Method Toilet - Exam GENERAL EXAM: Alert, pleasant 62-year-old male, on room air. HEAD: Normocephalic and atraumatic EYES: Normal reaction of pupils, equal size. NOSE: Clear with pink turbinates. THROAT: Positive for mild inflammation. NECK: No masses, no JVD. CHEST: No chest wall deformity. LUNGS: Scattered rhonchi more so on forced expiratory maneuver CVS: S1 and S2 normal with no audible murmur, regular rhythm. No extra heart sounds ABDOMEN: PEG tube exit site is clean and dry. No hepatosplenomegaly, active bowel sounds, no guarding or rigidity. SKIN: There is open wound and erythema around the neck CENTRAL NERVOUS SYSTEM: Alert oriented x 3 no gross focal deficit EXTREMITIES: No clubbing edema or cyanosis. - Labs CBC & Chem 7: 07/12/23 10:39 07/12/23 10:39 Labs: Abnormal Lab Results - Last 24 Hours (Table) 07/12/23 07/12/23 07/12/23 Range/Units 00:24 06:04 10:39 WBC 18.2 H (3.8-10.6) k/uL Neutrophils # 17.0 H (1.3-7.7) k/uL Lymphocytes # 0.3 L (1.0-4.8) k/uL Sodium (137-145) mmol/L BUN (9-20) mg/dL Creatinine (0.66-1.25) mg/dL Glucose (74-99) mg/dL POC Glucose (mg/dL) 132 H 118 H (70-110) mg/dL ALT (4-49) U/L Total Protein (6.3-8.2) g/dL Albumin (3.5-5.0) g/dL 07/12/23 07/12/23 Range/Units 10:39 12:13 WBC (3.8-10.6) k/uL Neutrophils # (1.3-7.7) k/uL Lymphocytes # (1.0-4.8) k/uL Sodium 135 L (137-145) mmol/L BUN 24 H (9-20) mg/dL Creatinine 0.64 L (0.66-1.25) mg/dL Glucose 155 H (74-99) mg/dL POC Glucose (mg/dL) 140 H (70-110) mg/dL ALT 159 H (4-49) U/L Total Protein 5.5 L (6.3-8.2) g/dL Albumin 3.2 L (3.5-5.0) g/dL Microbiology - Last 24 Hours (Table) 07/09/23 02:00 Blood Culture - Preliminary Blood 07/09/23 01:45 Blood Culture - Preliminary Blood Assessment and Plan Assessment: Impression: Acute exacerbation of chronic COPD with purulent tracheobronchitis, doubt pneumonia Leukocytosis, likely secondary to above Shortness of breath secondary to above History of small cell lung cancer diagnosed in 2019 treated with chemoradiation therapy diagnosis established by a fine-needle aspirate of the cervical lymph node and the patient was treated successfully Laryngeal cancer currently undergoing chemo/radiation therapy. Complicated by esophagitis and dysphagia Dysphagia secondary to above, PEG tube placement done on 01/13/2023. The patient currently is receiving enteral feeding for nutritional support and is supplements and soft with oral intake Chronic ongoing tobacco dependence Recommendation: Continue bronchodilators Continue steroids Continue Unasyn patient is at high risk of aspiration with his laryngeal cancer and difficulty with the swallowing Consider discharge planning in the next 24 hours. Will continue to Time with Patient: Less than 30
[2023-07-12] MEDS: DOCUSATE 100 MG CAP PO STA (17:54)
[2023-07-12 18:04] LABS: Glucose,Whole Blood 127 mg/dL (70-110)
[2023-07-12 19:17] LABS: Appearance,Urine Clear (Clear); Bilirubin,Urine Negative (Negative); Blood,Urine Negative (Negative); Color,Urine Colorless; Glucose,Urine (UA) Negative (Negative); Ketones,Urine Negative (Negative); Leukocyte Esterase,Urine Negative (Negative); Nitrite,Urine Negative (Negative); PH, Urine 7.5 (5.0-8.0); Protein,Urine Negative (Negative); Urobilinogen,Urine <2.0 mg/dL (<2.0)
[2023-07-13 00:02] LABS: Glucose,Whole Blood 126 mg/dL (70-110)
[2023-07-13 06:26] LABS: Glucose,Whole Blood 127 mg/dL (70-110)
[2023-07-13] MEDS: DOCUSATE 100 MG CAP PO SCH (11:14)
[2023-07-13] MEDS: polyethylene glycoL 3350 17 GM POWD.PACK PO SCH (11:14)
[2023-07-13 11:34] LABS: Glucose,Whole Blood 145 mg/dL (70-110)
--- NOTE | 2023-07-13 12:30 | P.DS ---
Providers Date of admission: 07/09/23 02:58 Expected date of discharge: 07/13/23 Attending physician: Jimbo Winslow MD Consults: 07/09/23 02:58 Consult Physician Routine Consulting Provider: Jeff Lezama Consult Reason/Comments: COPD Do you want consulting provider notified?: Yes Primary care physician: Venkata [facility] Course: Discharge diagnoses; 1. Acute exacerbation COPD; Discharge on prednisone taper and Augmentin Outpatient follow-up with pulmonology 2. Possible pneumonia versus purulent tracheobronchitis; Leukocytosis; Discharge on prednisone taper and Augmentin Outpatient follow-up with pulmonology 4. Mild renal injury; slow IV fluid hydration with normal saline at rate of 75 cc an hour; avoid nephrotoxins and hypotension 5. History of small cell carcinoma of the lung; patient was treated with chemotherapy 6. Laryngeal cancer complicated by esophagitis and dysphagia; currently undergoing chemo and radiation therapy 7. Dysphagia; patient underwent PEG tube placement on 01/13/2023; remains on tube feeding for nutritional support; currently on Jevity; aspiration precautions in place Hospital course; 62-year-old male history of COPD, lung cancer, and laryngeal cancer presenting with worsening cough and dyspnea over the past 24 hours. No fever. No chest pain. No lower extremity pain or swelling. Patient has a whisper voice which she states has been present for at least the past 1 month, no acute change. Patient does states he recently finished chemotherapy. Patient was placed on CPAP during transport by paramedics with hypoxia and severe respiratory distress. Blood work completed in ED reveals a WBC of 17.7, hemoglobin of 13.6 and platelet count of 358, sodium 138, potassium 3.9, BUNs/creatinine of 30/0.64 and blood glucose of 119 In the ED patient received 3 treatments of albuterol but continues to have wheezing and decreased air entry bilaterally; he was started on IV steroids and IV antibiotics and is admitted for further treatment of COPD exacerbation Chest x-ray negative for acute cardiopulmonary findings EKG; Sinus tachycardia rate of 116, MA interval 128, QRS duration 82, QTc [address] segment elevation. --Patient has dietary consult in place for resuming tube feeding; we will start patient on a diet also -Reports uncontrolled pain and wants to resume liquid [place] with morphine for breakthrough pain 07/10. Patient seen and examined. States breathing is improved, currently not requiring any oxygen. Cough is improved 07/11. Patient seen and examined. Not requiring any oxygen. Shortness of breath is present on exertion. Blood work done this morning showed WBC 18.2, hemoglobin 13.3, platelet count 312, sodium 135, potassium 4.2, BUN 24, creatinine 0.64 07/12. Patient seen and examined. Pulmonology cleared the patient for discharge. Being discharged on prednisone taper, Augmentin and Symbicort PHYSICAL EXAMINATION: GENERAL: The patient is alert and oriented x3, not in any acute distress. Well developed, well nourished. HEENT: Pupils are round and equally reacting to light. EOMI. No scleral icterus. No conjunctival pallor. Normocephalic, atraumatic. No pharyngeal erythema. No thyromegaly. CARDIOVASCULAR: S1 and S2 present. No murmurs, rubs, or gallops. PULMONARY: Chest is clear to auscultation, no wheezing or crackles. ABDOMEN: Soft, nontender, nondistended, normoactive bowel sounds. No palpable organomegaly. MUSCULOSKELETAL: No joint swelling or deformity. EXTREMITIES: No cyanosis, clubbing, or pedal edema. NEUROLOGICAL: Gross neurological examination did not reveal any focal deficits. SKIN: No rashes. Dictation was produced using Real Time Translation dictation software. please excuse any grammatical, word or spelling errors. Patient Condition at Discharge: Stable Plan - Discharge Summary New Discharge Prescriptions: New Amoxic-Pot Clav 875-125Mg [Augmentin 875-125] 1 tab PO Q12HR 3 Days #6 tab predniSONE 10 mg PO DAILY #20 tab Continue Vitamin E (Dl,Tocopheryl Acet) [Vitamin E (400 Iu = 180 mg)] 400 unit PO DAILY ondansetron HCL [Zofran] 8 mg PO Q12HR HYDROcodone/APAP [[place] Elixir 7.5-325Mg/15Ml] 15 ml PO Q6H PRN PRN Reason: Pain Albuterol Inhaler [Ventolin Hfa Inhaler] 2 puff INHALATION RT-Q6H PRN #1 each PRN Reason: Shortness Of Breath Lidocaine Viscous 2% [Xylocaine Viscous] 5 ml MUCOUS MEM Q1H PRN PRN Reason: throat pain Ipratropium-Albuterol Nebulize [Duoneb 0.5 mg-3 mg/3 ml Soln] 3 ml INHALATION RT-QID PRN PRN Reason: Shortness Of Breath Discontinued predniSONE See Taper PO DIRECTED Temazepam [Restoril] 15 mg PO HS PRN PRN Reason: Insomnia Discharge Medication List Lidocaine Viscous 2% [Xylocaine Viscous] 5 ml MUCOUS MEM Q1H PRN 01/10/23 [History] HYDROcodone/APAP [[place] Elixir 7.5-325Mg/15Ml] 15 ml PO Q6H PRN 07/09/23 [History] Ipratropium-Albuterol Nebulize [Duoneb 0.5 mg-3 mg/3 ml Soln] 3 ml INHALATION RT-QID PRN 07/09/23 [History] Vitamin E (Dl,Tocopheryl Acet) [Vitamin E (400 Iu = 180 mg)] 400 unit PO DAILY 07/09/23 [History] ondansetron HCL [Zofran] 8 mg PO Q12HR 07/09/23 [History] Albuterol Inhaler [Ventolin Hfa Inhaler] 2 puff INHALATION RT-Q6H PRN #1 each 07/13/23 [Rx] Amoxic-Pot Clav 875-125Mg [Augmentin 875-125] 1 tab PO Q12HR 3 Days #6 tab 07/13/23 [Rx] predniSONE 10 mg PO DAILY #20 tab 07/13/23 [Rx] Follow up Appointment(s)/Referral(s): Venkata Cortez DO [Primary Care Provider] - 1-2 days Jeff Lezama MD [STAFF PHYSICIAN] - 1 Week Discharge Disposition: HOME SELF-CARE
[2023-07-13 12:44] VITALS: BP 157/93; RESP 16; TEMP 98
[2023-07-13 14:09] VITALS: BMI 21.8
--- NOTE | 2023-07-13 14:34 | P.PN ---
Subjective Progress Note Date: 07/13/23 This is a 63-year-old male patient who is coming in with increased shortness of breath, cough and congestion. The patient is producing copious amount of thick purulent yellowish sputum in large quantities. Pneumonia was suspected. Nevertheless, the chest x-ray that was done emergency showed no acute pulmonary filtrates or consolidations. The patient has noted laryngeal cancer and the patient has received chemoradiation therapy to his neck. He also has previous history of small cell lung cancer that was diagnosed back in 2019. At that time, the patient developed a left cervical lymph node and the fine-needle aspirate was consistent with small cell carcinoma. The patient was treated with chemoradiation therapy which she completed on 08/30/2019 and the patient had adequate response. Subsequently, he was found to have a left laryngeal uptake and a follow-up PET scan that was done 10/08/2022 and he was found to have laryngeal cancer treated with chemoradiation therapy. He continues to have difficulty with hoarseness and dysphagia. He has PEG tube for enteral feeding and nutritional support. He is taking oral intake and supplements himself with enteral feeding via his PEG tube. Denies having any aspiration. In the emergency department, the patient was afebrile and hemodynamically stable. He was placed on oxygen at 3 L and the patient's current pulse ox in the order of 98%. His white cell count at 17.7 with hemoglobin of 13.6 and a platelet count of 358. Normal coagulation profile. Normal electrolytes. Viral screen has been negative including COVID-19 RSV and influenza. On today's evaluation of 07/10/2023, the patient is being seen for a follow-up. The patient is still in the emergency department. He reports improvement since yesterday. His cough and congestion is still present and the patient is producing still copious amount of respiratory secretions. Nevertheless, the monitor as per secretions improved since yesterday. The patient is afebrile. The patient is hemodynamically stable. The patient is currently on broad- spectrum antibiotics and he is on IV Unasyn. Sputum Gram stain and culture is still pending. The preliminary Gram stain is showing moderate amount of gram- positive cocci and the y rare yeast. The patient remains on 2 L of oxygen by na seun cannula. The patient is afebrile. WBC count is at 26 with a hemoglobin 15.3 and a platelet count of 346. BUN is 22 with a creatinine of 0.5 and a sodium levels at 135. The viral cultures were essentially negative. The chest x-ray at time of admission shows no evidence of any acute consolidation or airspace disease. The patient is seen today July 11, 2023 in follow-up on the selective care unit. He is currently sitting up in bed. Awake and alert in no acute distress. He is maintaining good O2 saturations in the 90s on room air. He is continued on Unasyn. Continued on bronchodilators. Continued on Solu-Medrol. Blood cultures revealed no growth. Sputum culture revealed no growth. White count 26.3. Hemoglobin 12.4. Platelets 309. Sodium 135. Potassium 4.4. Bicarb 27. BUN 22. Creatinine 0.54. Glucose 117. Patient was reevaluated today on 07/12/2023, patient is improving, but not back to her baseline, continues to have intermittent cough and wheezing, no fever no chills no hemoptysis and no chest pain. Patient is afebrile, he is on room air, maintained on multiple bronchodilators steroids and antibiotics. Sputum cultures are mostly showing normal luz.Blood cultures are negative so far in the last 3 days. WBC count is 18.2 hemoglobin 13.3 basic metabolic profile is normal and renal profile is normal, chest x-ray on admission showed no evidence of active disease. The patient is seen today July 13, 2023 in follow-up on the selective care unit. He is currently resting comfortably in bed. Awake and alert in no acute distress. Maintaining good O2 saturations in the 90s on room air. Glucose 145. He remains on DuoNeb inhalations, Solu-Medrol. Heparin for DVT prophylaxis. Currently on antibiotics in the form of Unasyn. Objective - Vital Signs Vital signs: Vital Signs Temp 98 F 07/13/23 11:15 Pulse 106 H 07/13/23 11:35 Resp 16 07/13/23 11:15 BP 157/93 07/13/23 11:15 Pulse Ox 97 07/13/23 11:15 FiO2 40 07/10/23 08:31 Intake & Output 07/12/23 07/13/23 07/13/23 18:59 06:59 18:59 Intake Total 876 1740 Balance 876 1740 Weight 69 kg Intake: Oral 876 1740 Other: Voiding Method Toilet Toilet Toilet - Exam GENERAL EXAM: Alert, pleasant 62-year-old male, resting comfortably in bed, in no acute distress, on room air. HEAD: Normocephalic and atraumatic EYES: Normal reaction of pupils, equal size. NOSE: Clear with pink turbinates. THROAT: Positive for mild inflammation. NECK: No masses, no JVD. CHEST: No chest wall deformity. LUNGS: No obvious stridor on auscultation of the neck. Equal air entry with few scattered rhonchi. CVS: S1 and S2 normal with no audible murmur, regular rhythm. No extra heart sounds ABDOMEN: PEG tube exit site is clean and dry. No hepatosplenomegaly, active bowel sounds, no guarding or rigidity. SPINE: No scoliosis or deformity SKIN: There is open wound and erythema around the neck CENTRAL NERVOUS SYSTEM: No focal deficits, tone is normal in all 4 extremities. EXTREMITIES: There is no peripheral edema, clubbing, or cyanosis. Peripheral pulses are intact. - Labs CBC & Chem 7: 07/12/23 10:39 07/12/23 10:39 Labs: Abnormal Lab Results - Last 24 Hours (Table) 07/12/23 07/13/23 07/13/23 Range/Units 18:00 00:01 06:23 POC Glucose (mg/dL) 127 H 126 H 127 H (70-110) mg/dL 07/13/23 Range/Units 11:32 POC Glucose (mg/dL) 145 H (70-110) mg/dL Microbiology - Last 24 Hours (Table) 07/09/23 02:00 Blood Culture - Preliminary Blood 07/09/23 01:45 Blood Culture - Preliminary Blood Assessment and Plan Assessment: Acute exacerbation of chronic COPD with purulent tracheobronchitis as the patient is producing copious amount of respiratory secretions. Pneumonia cannot be completely excluded. The patient may potentially have an early aspiration pneumonia. Sputum culture revealed no growth. Currently on Unasyn Leukocytosis, likely secondary to above Shortness of breath secondary to above History of small cell lung cancer diagnosed in 2019 treated with chemoradiation therapy diagnosis established by a fine-needle aspirate of the cervical lymph node and the patient was treated successfully Laryngeal cancer currently undergoing chemo/radiation therapy. Complicated by esophagitis and dysphagia Dysphagia secondary to above, PEG tube placement done on 01/13/2023. The patient currently is receiving enteral feeding for nutritional support and is supplements and soft with oral intake Chronic ongoing tobacco dependence Plan: The patient was seen and evaluated Labs and medications reviewed Improved and on room air Cleared for discharge Complete a prednisone taper Continue Symbicort, albuterol HFA Completed a course of Augmentin Follow-up in our office in 1 week I have personally seen and examined the patient, performed the documentation and the assessment and plan as written. Number of minutes spent on the visit: 10.
[2023-07-13 15:32] VITALS: PULSE 102
--- NOTE | 2023-07-15 15:11 | CDI ---
"Documentation Clarification Form Date: 07/15/2023 From: Hari Conradollum Admit Date: 07/09/2023 02:58:00 AM Patient Name: Claudio Lopez Visit Number: [id number] Discharge Date: 07/13/2023 03:28:00 PM ATTENTION: The Clinical Documentation Specialists (CDI) and [facility] Coding Staff appreciate your assistance in clarifying documentation. Please respond to the clarification below the line at the bottom and electronically sign. The CDI & [facility] Coding staff will review the response and follow-up if needed. Please note: Queries are made part of the Legal Health Record. If you have any questions, please contact the author of this message via ITS. The patient has and elevated WBC 17.7 of per EMR, HR of 116 per EMR, and Possible pneumonia versus purulent tracheobronchitis per 07/08 H&P. Based on this information and the findings below, is there an additional diagnosis that is clinically appropriate for this patient? History/Risk Factors: 62-year-old male history of COPD, lung cancer, and laryngeal cancer presenting with worsening cough and dyspnea over the past 24 hours. No fever. Clinical Indicators: 07/08 H&P: Possible pneumonia versus purulent tracheobronchitis; patient has been placed on IV Unasyn 3 g every 6 hours; blood cultures and sputum cultures obtained; we will monitor CBC, CRP and procalcitonin. Leukocytosis; likely related to purulent tracheobronchitis versus pneumonia; will monitor CBC, CRP and procalcitonin 07/09 Progress note: On today's evaluation of 07/10/2023, the patient is being seen for a follow-up. The patient is still in the emergency department. He reports improvement since yesterday. His cough and congestion is still present and the patient is producing still copious amount of respiratory secretions. Nevertheless, the monitor as per secretions improved since yesterday. The patient is afebrile. The patient is hemodynamically stable. The patient is currently on broad-spectrum antibiotics and he is on IV Unasyn. Sputum Gram stain and culture is still pending. The preliminary Gram stain is showing moderate amount of gram-positive cocci and the y rare yeast. The patient remains on 2 L of oxygen by nasal cannula. The patient is afebrile. WBC count is at 26 4/16 Progress note: Patient is afebrile, he is on room air, maintained on multiple bronchodilators steroids and antibiotics. Sputum cultures are mostly showing normal luz. Blood cultures are negative so far in the last 3 days. WBC count is 18.2 WBC 17.7 26.3 26.3 18.2 (07/08 - 07/11) Lactic acid: 0.7 Blood cultures: NGTD Vitals signs: 07/08 HR 116 | Temp 98.2 | RR 21 | 147/103 07/09 HR 89 | Temp 97.9 | RR 20 | 131/92 07/10 HR 101 | Temp 97.8 | RR 18 | 138/87 07/11 HR 97 | Temp 97.8 | RR 18 | 150/87 07/12 HR 105 | Temp 97.7 | RR 18 | 158/94 Treatment: Unasyn 3gm Q6hr, Solumedrol, 500ml NS Bolus, Duoneb. Is there an additional diagnosis that is clinically appropriate for this patient? [ ] Sepsis, present on admission [ ] Sepsis treated prophylactically only [ ] No additional diagnosis/not clinically significant [ ] Other, please specify [ x ] Unable to determine i did not evaluate the pt SIRS Criteria: 2 or more of the following may indicate SIRS Temperature < 96.8F (36C) or > 101.0F (38.3C) Heart Rate > 90 bpm Respiratory Rate > 20 breaths/min or PaCO2 < 32 mmHg White Blood Cell Count > 12,000 or < 4,000 cells/mm3 or > 10% bands (Template Last Reviewed: March 2022) MTDD"
--- NOTE | 2023-08-01 12:41 | CDI ---
"Documentation Clarification Form Date: 08/01/2023 From: Hari Kelsy Admit Date: 07/09/2023 02:58:00 AM Patient Name: Claudio Lopez Visit Number: [id number] Discharge Date: 07/13/2023 03:28:00 PM ATTENTION: The Clinical Documentation Specialists (CDI) and [facility] Coding Staff appreciate your assistance in clarifying documentation. Please respond to the clarification below the line at the bottom and electronically sign. The CDI & [facility] Coding staff will review the response and follow-up if needed. Please note: Queries are made part of the Legal Health Record. If you have any questions, please contact the author of this message via ITS. The patient has and elevated WBC 17.7 of per EMR, HR of 116 per EMR, and Possible pneumonia versus purulent tracheobronchitis per 07/08 H&P. Based on this information and the findings below, is there an additional diagnosis that is clinically appropriate for this patient? History/Risk Factors: 62-year-old male history of COPD, lung cancer, and laryngeal cancer presenting with worsening cough and dyspnea over the past 24 hours. No fever. Clinical Indicators: 07/08 H&P: Possible pneumonia versus purulent tracheobronchitis; patient has been placed on IV Unasyn 3 g every 6 hours; blood cultures and sputum cultures obtained; we will monitor CBC, CRP and procalcitonin. Leukocytosis; likely related to purulent tracheobronchitis versus pneumonia; will monitor CBC, CRP and procalcitonin 07/09 Progress note: On today's evaluation of 07/10/2023, the patient is being seen for a follow-up. The patient is still in the emergency department. He reports improvement since yesterday. His cough and congestion is still present and the patient is producing still copious amount of respiratory secretions. Nevertheless, the monitor as per secretions improved since yesterday. The patient is afebrile. The patient is hemodynamically stable. The patient is currently on broad-spectrum antibiotics and he is on IV Unasyn. Sputum Gram stain and culture is still pending. The preliminary Gram stain is showing moderate amount of gram-positive cocci and the y rare yeast. The patient remains on 2 L of oxygen by nasal cannula. The patient is afebrile. WBC count is at 26 4/16 Progress note: Patient is afebrile, he is on room air, maintained on multiple bronchodilators steroids and antibiotics. Sputum cultures are mostly showing normal luz. Blood cultures are negative so far in the last 3 days. WBC count is 18.2 WBC 17.7 26.3 26.3 18.2 (07/08 - 07/11) Lactic acid: 0.7 Blood cultures: NGTD Vitals signs: 07/08 HR 116 | Temp 98.2 | RR 21 | 147/103 07/09 HR 89 | Temp 97.9 | RR 20 | 131/92 07/10 HR 101 | Temp 97.8 | RR 18 | 138/87 07/11 HR 97 | Temp 97.8 | RR 18 | 150/87 07/12 HR 105 | Temp 97.7 | RR 18 | 158/94 Treatment: Unasyn 3gm Q6hr, Solumedrol, 500ml NS Bolus, Duoneb. Is there an additional diagnosis that is clinically appropriate for this patient? [ ] Sepsis, present on admission [ ### ] Sepsis treated prophylactically only [ ] No additional diagnosis/not clinically significant [ ] Other, please specify [ ] Unable to determine SIRS Criteria: 2 or more of the following may indicate SIRS Temperature < 96.8F (36C) or > 101.0F (38.3C) Heart Rate > 90 bpm Respiratory Rate > 20 breaths/min or PaCO2 < 32 mmHg White Blood Cell Count > 12,000 or < 4,000 cells/mm3 or > 10% bands (Template Last Reviewed: March 2022) MTDD"
--- NOTE | 2023-08-25 18:16 | CDI ---
Documentation Clarification Form Date: From: Navarro Garcia Phone: Admit Date: 07/09/2023 02:58:00 AM Patient Name: Claudio Lopez Visit Number: [id number] Discharge Date: 07/13/2023 03:28:00 PM ATTENTION: The Clinical Documentation Specialists (CDI) and [facility] Coding Staff appreciate your assistance in clarifying documentation. Please respond to the clarification below the line at the bottom and electronically sign. The CDI & [facility] Coding staff will review the response and follow-up if needed. Please note: Queries are made part of the Legal Health Record. If you have any questions, please contact the author of this message via ITS. Dr. Saleem Perla Hypoxia Respiratory Failure is documented 07/09/23 on ED Documentation which may lack sufficient clinical evidence/support in the medical record. Additional clarification is requested. Patient history/risk factors: Lung & Laryngeal Cancer COPD Exacerbation Clinical Indicators: Severe Respiratory Distress Worsened Cough and Dyspnea Sinus Tachycardia Heart Rate > 90 bpm Respiratory Rate > 20 breaths/min or PaCO2 < 32 mmHg Treatment: 07/09 The patient remains on 2 L of oxygen by nasal cannula. Patient was placed on CPAP during transport by paramedics 07/11 Progress note: Patient is afebrile, he is on room air, maintained on multiple bronchodilators and steroids After work up and study, please clarify which diagnosis is most appropriate? [ ] Hypoxia Respiratory Failure ruled out [ ] Hypoxia Respiratory Failure is a valid diagnosis as evidenced by the following: [@@@ ] Respiratory Insufficiency [ ] Unable to determine [ ] Other, please specify MTDD
== END 2023-07-13 15:28 | disposition home or self-care (01) | DRG 140 ==
LOC: EC 01:31 → 3SCARD 02:58
PROVIDERS: ADMIT Internal Medicine; ATTEND Internal Medicine
DX: J44.0 Chronic obstructive pulmonary disease with (acute) lower respiratory infection (principal); J44.1 Chronic obstructive pulmonary disease with (acute) exacerbation; Z85.118 Personal history of other malignant neoplasm of bronchus and lung; Z92.21 Personal history of antineoplastic chemotherapy; C32.9 Malignant neoplasm of larynx, unspecified; J69.0 Pneumonitis due to inhalation of food and vomit; K21.00 Gastro-esophageal reflux disease with esophagitis, without bleeding; R06.03 Acute respiratory distress; Z85.21 Personal history of malignant neoplasm of larynx; F13.10 Sedative, hypnotic or anxiolytic abuse, uncomplicated; R13.10 Dysphagia, unspecified; Z79.52 Long term (current) use of systemic steroids; Z93.1 Gastrostomy status
CPT/HCPCS: 36415; 71045; 80048; 80053; 81003; 83605; 83735; 83880; 84145; 84484; 85025; 85610; 85730; 87040; 87070; 87205; 87636; 93005; 94640; 94660; 94667; 94760; 96361; 96365; 96366; 96372; 96375; 96376; 99291

== ENCOUNTER 2023-07-19 17:13 | Inpatient (IN) | payer OTHER ==
--- NOTE | 2023-07-19 18:01 | ED ---
SOB HPI - General Chief Complaint: Shortness of Breath Stated Complaint: MINNA Time Seen by Provider: 07/19/23 17:27 Source: patient, family, RN notes reviewed, old records reviewed Mode of arrival: wheelchair Limitations: no limitations - History of Present Illness Initial Comments: This is a 63-year-old male to the ER for evaluation today. Patient presents today for evaluation of significant weakness cough congestion significant wheezing significant difficulty with speech. Patient has recent hospital mission for same symptoms were improved but is progressively worsened MD Complaint: shortness of breath, cough, "asthma attack" -: days(s) Severity: severe Severity scale (1-10): 8 Quality: dull, aching Consistency: constant Improves With: oxygen, rest, bronchodilators, upright position Worsens With: nothing Known History Of: COPD, other (Lung cancer) Context: recent URI Associated Symptoms: cough Treatments Prior to Arrival: none - Related Data Home Medications Medication Instructions Recorded Confirmed Lidocaine Viscous 2% [Xylocaine 5 ml MUCOUS MEM Q1H PRN 01/10/23 07/19/23 Viscous] HYDROcodone/APAP [[place] Elixir 15 ml PO Q6H PRN 07/09/23 07/19/23 7.5-325Mg/15Ml] Ipratropium-Albuterol Nebulize 3 ml INHALATION RT-QID PRN 07/09/23 07/19/23 [Duoneb 0.5 mg-3 mg/3 ml Soln] Vitamin E (Dl,Tocopheryl Acet) 400 unit PO DAILY 07/09/23 07/19/23 [Vitamin E (400 Iu = 180 mg)] ondansetron HCL [Zofran] 8 mg PO Q12HR 07/09/23 07/19/23 Budesonide/Formoterol Fumarate 2 puff INHALATION RT-BID 07/19/23 07/19/23 [Symbicort 80-4.5 Mcg Inhaler] Previous Rx's Medication Instructions Recorded Albuterol Inhaler [Ventolin Hfa 2 puff INHALATION RT-Q6H PRN #1 07/13/23 Inhaler] each Ipratropium-Albuterol Nebulize 3 ml INHALATION RT-QID #100 each 07/25/23 [Duoneb 0.5 mg-3 mg/3 ml Soln] predniSONE 10 mg PO DIRECTED #24 tab 07/25/23 Allergies Allergy/AdvReac Type Severity Reaction Status Date / Time No Known Allergies Allergy Verified 07/19/23 20:17 Review of Systems ROS Statement: Those systems with pertinent positive or pertinent negative responses have been documented in the HPI. ROS Other: All systems not noted in ROS Statement are negative. 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, recent dx of laryngeal cancer dx mar 2022 History of Any Multi-Drug Resistant Organisms: None Reported Past Surgical History: No Surgical Hx Reported Additional Past Surgical History / Comment(s): Bronchoscopies, colonoscopy Past Anesthesia/Blood Transfusion Reactions: No Reported Reaction Past Psychological History: No Psychological Hx Reported Smoking Status: Current some day smoker - Past Family History Mother Family Medical History: No Reported History Father Family Medical History: Cancer Additional Family Medical History / Comment(s): Prostate ca General Exam - General Exam Comments Initial Comments: Mild stridor with wheezing Limitations: no limitations General appearance: alert, in no apparent distress Head exam: Present: atraumatic, normocephalic, normal inspection Eye exam: Present: normal appearance, PERRL, EOMI. Absent: scleral icterus, conjunctival injection, periorbital swelling ENT exam: Present: normal exam, mucous membranes moist Neck exam: Present: normal inspection. Absent: tenderness, meningismus, lymphadenopathy Respiratory exam: Present: normal lung sounds bilaterally. Absent: respiratory distress, wheezes, rales, rhonchi, stridor Cardiovascular Exam: Present: regular rate, normal rhythm, normal heart sounds. Absent: systolic murmur, diastolic murmur, rubs, gallop, clicks GI/Abdominal exam: Present: soft, normal bowel sounds. Absent: distended, tenderness, guarding, rebound, rigid Extremities exam: Present: normal inspection, full ROM, normal capillary refill. Absent: tenderness, pedal edema, joint swelling, calf tenderness Back exam: Present: normal inspection Neurological exam: Present: alert, oriented X3, CN II-XII intact Psychiatric exam: Present: normal affect, normal mood Skin exam: Present: warm, dry, intact, normal color. Absent: rash Course Vital Signs 07/19/23 07/19/23 07/19/23 17:20 18:00 18:06 Temperature 97.9 F Pulse Rate 114 H 111 H 113 H Respiratory 36 H 20 Rate Blood Pressure 124/82 114/78 O2 Sat by Pulse 96 97 Oximetry 07/19/23 07/19/23 07/19/23 18:15 19:00 20:00 Temperature Pulse Rate 110 H 120 H 110 H Respiratory 22 20 Rate Blood Pressure 120/71 138/90 O2 Sat by Pulse 93 L 95 Oximetry 07/19/23 07/19/23 07/19/23 21:29 21:50 21:59 Temperature 98.1 F Pulse Rate 110 H 114 H 101 H Respiratory 24 Rate Blood Pressure 99/72 O2 Sat by Pulse 95 Oximetry 07/19/23 07/19/23 22:58 23:13 Temperature Pulse Rate 104 H 107 H Respiratory 16 20 Rate Blood Pressure 104/72 144/89 O2 Sat by Pulse 99 96 Oximetry - Reevaluation(s) Reevaluation #1: 07/19/23 21:05 Medical records reviewed Reevaluation #2: 07/19/23 21:05 Patient symptoms unchanged Reevaluation #3: 07/19/23 21:08 Patient informed of results and questions answered Reevaluation #4: Was pt. sent in by a medical professional or institution (, PA, CARDIAC CATH TECH, urgent care, hospital, or shelter...) When possible be specific @ -no Did you speak to anyone other than the patient for history (EMS, parent, family, police, friend...)? What history was obtained from this source @ -no Did you review nursing and triage notes (agree or disagree)? Why? @ -agree Are old charts reviewed (outside hosp., previous admission, EMS record, old EKG, old radiological studies, urgent care reports/EKG's, shelter records)? Report findings @ -yes Differential Diagnosis (chest pain, altered mental status, abdominal pain women, abdominal pain men, vaginal bleeding, weakness, fever, dyspnea, syncope, headache, dizziness, GI bleed, back pain, seizure, CVA, palpatations, mental health, musculoskeletal)? @ -prior EKG interpreted by me (3pts min.). @ -yes X-rays interpreted by me (1pt min.). @ -yes negative for acute disease CT interpreted by me (1pt min.). @ -no U/S interpreted by me (1pt. min.). @ -no What testing was considered but not performed or refused? (CT, X-rays, U/S, labs)? Why? @ -none What meds were considered but not given or refused? Why? @ -none Did you discuss the management of the patient with other professionals (professionals i.e. , PA, CARDIAC CATH TECH, lab, RT, psych nurse, social media intern, rn float, teacher, workplace rehabilitation officer, case management social worker)? Give summary @ -no Was smoking cessation discussed for >3mins.? @ -no Was critical care preformed (if so, how long)? @ -yes31 Were there social determinants of health that impacted care today? How? (Homelessness, low income, unemployed, alcoholism, drug addiction, transportation, low edu. Level, literacy, decrease access to med. care, nursing home, rehab)? @ -none Was there de-escalation of care discussed even if they declined (Discuss DNR or withdrawal of care, Hospice)? DNR status @ -no What co-morbidities impacted this encounter? (DM, HTN, Smoking, COPD, CAD, Cancer, CVA, ARF, Chemo, Hep., AIDS, mental health diagnosis, sleep apnea, morbid obesity)? @ -none Was patient admitted / discharged? Hospital course, mention meds given and route, prescriptions, significant lab abnormalities, going to OR and other pertinent info. @ - 62 male to ER for evaluation of dyspnea stridor and COPD exacerbation admit for breathing treatments and humidified O2 for airway turbulence Admitted Undiagnosed new problem with uncertain prognosis? @ -no Drug Therapy requiring intensive monitoring for toxicity (Heparin, Nitro, Insulin, Cardizem)? @ -no Were any procedures done? @ -no Diagnosis/symptom? @ -'s significant stridor with history of laryngeal cancer Acute, or Chronic, or Acute on Chronic? @ -Acute Uncomplicated (without systemic symptoms) or Complicated (systemic symptoms)? @ -Complicated Side effects of treatment? @ -no Exacerbation, Progression, or Severe Exacerbation? @ -exacerbation Poses a threat to life or bodily function? How? (Chest pain, [place], SD, pneumonia, PE, COPD, DKA, ARF, appy, cholecystitis, CVA, Diverticulitis, Homicidal, Suicidal, threat to staff... and all critical care pts) @ -yes with significant airway compromise Reevaluation #5: Differential Dyspnea: Coronary syndrome, arrhythmia, tamponade, asthma, COPD, pulmonary embolism, pneumonia, pneumothorax, pulmonary effusion, anaphylaxis, diabetic ketoacidosis, flailed chest, pulmonary contusion, diaphragmatic rupture, anemia, neuromuscular, this is not meant to be an all-inclusive list. - Consultations Consultation #1: Spoke with [facility] who agrees to admit this patient Medical Decision Making - Medical Decision Making 62 male to ER for evaluation of dyspnea stridor and COPD exacerbation admit for breathing treatments and humidified O2 for airway turbulence - Lab Data Result diagrams: 07/25/23 06:10 07/25/23 06:10 Lab Results 07/19/23 07/19/23 07/19/23 Range/Units 19:07 19:07 19:07 WBC 20.4 H (3.8-10.6) k/uL RBC 4.55 (4.30-5.90) m/uL Hgb 14.0 (13.0-17.5) gm/dL Hct 42.5 (39.0-53.0) % MCV 93.4 (80.0-100.0) fL MCH 30.7 (25.0-35.0) pg MCHC 32.9 (31.0-37.0) g/dL RDW 13.1 (11.5-15.5) % Plt Count 259 (150-450) k/uL MPV 7.4 Neutrophils % 87 % Lymphocytes % 6 % Monocytes % 5 % Eosinophils % 0 % Basophils % 0 % Neutrophils # 17.7 H (1.3-7.7) k/uL Lymphocytes # 1.1 (1.0-4.8) k/uL Monocytes # 1.0 (0-1.0) k/uL Eosinophils # 0.1 (0-0.7) k/uL Basophils # 0.0 (0-0.2) k/uL Sodium 136 L (137-145) mmol/L Potassium 4.3 (3.5-5.1) mmol/L Chloride 102 (98-107) mmol/L Carbon Dioxide 31 H (22-30) mmol/L Anion Gap 3 mmol/L BUN 32 H (9-20) mg/dL Creatinine 0.59 L (0.66-1.25) mg/dL Est GFR (CKD-EPI)AfAm >90 (>60 ml/min/1.73 sqM) Est GFR (CKD-EPI)NonAf >90 (>60 ml/min/1.73 sqM) Glucose 104 H (74-99) mg/dL Calcium 9.1 (8.4-10.2) mg/dL Phosphorus 3.7 (2.5-4.5) mg/dL Magnesium 2.1 (1.6-2.3) mg/dL Total Bilirubin 0.5 (0.2-1.3) mg/dL AST 27 (17-59) U/L ALT 62 H (4-49) U/L Alkaline Phosphatase 90 (38-126) U/L Troponin I <0.012 (0.000-0.034) ng/mL Total Protein 5.8 L (6.3-8.2) g/dL Albumin 3.4 L (3.5-5.0) g/dL - Radiology Data Radiology results: report reviewed (Chest x-ray as well as soft tissue neck negative for acute disease), image reviewed Critical Care Time Critical Care Time: Yes Total Critical Care Time: 31 Disposition Clinical Impression: Acute exacerbation of chronic obstructive pulmonary disease, Radiation-induced esophagitis, Respiratory failure, Stridor, Asthma with acute exacerbation, Acute respiratory failure Disposition: ADMITTED IP TO THIS HOSP Condition: Fair Is patient prescribed a controlled substance at d/c from ED?: No Time of Disposition: 21:00
[2023-07-19] MEDS: RACEPINEPHRINE 2.25% NEB 0.5 ML NEBU INHALATION STA (18:05)
[2023-07-19] MEDS: DEXAMETHASONE SOD PHOSPHATE 10 MG/ML 1 ML VIAL IVP STA (19:06)
[2023-07-19] MEDS: SODIUM CHLORIDE 0.9% 1,000 ML IV STA (19:06)
[2023-07-19] MEDS: SODIUM CHLORIDE 0.9% 500 ML 500 ML IV STA (19:07)
[2023-07-19] MEDS: HYDROmorphone 1 MG/ML 1 ML SYRINGE IVP STA (19:13)
[2023-07-19 20:09] LABS: Basophils % (A) 0 %; Eosinophils # (A) 0.1 k/uL (0-0.7); Eosinophils % (A) 0 %; HCT 42.5 % (39.0-53.0); Lymphocytes # (A) 1.1 k/uL (1.0-4.8); Lymphocytes % (A) 6 %; MCH 30.7 pg (25.0-35.0); MCHC 32.9 g/dL (31.0-37.0); MCV 93.4 fL (80.0-100.0); Mean Platelet Volume 7.4; Monocytes % (A) 5 %; Neutrophils # (A) 17.7 k/uL (1.3-7.7); Neutrophils % (A) 87 %; Platelet Count 259 k/uL (150-450); RBC 4.55 m/uL (4.30-5.90); RDW 13.1 % (11.5-15.5); WBC 20.4 k/uL (3.8-10.6)
[2023-07-19 20:24] LABS: ALT 62 U/L (4-49); AST 27 U/L (17-59); African American GFR (CKD) >90 (>60 ml/min/1.73 sqM); Albumin 3.4 g/dL (3.5-5.0); Alkaline Phosphatase 90 U/L (38-126); Anion Gap 3 mmol/L; Blood Urea Nitrogen 32 mg/dL (9-20); Calcium 9.1 mg/dL (8.4-10.2); Carbon Dioxide 31 mmol/L (22-30); Chloride 102 mmol/L (98-107); Glucose 104 mg/dL (74-99); Magnesium 2.1 mg/dL (1.6-2.3); Non-African American GFR(CKD) >90 (>60 ml/min/1.73 sqM); Phosphorus 3.7 mg/dL (2.5-4.5); Potassium 4.3 mmol/L (3.5-5.1); Sodium 136 mmol/L (137-145); Total Bilirubin 0.5 mg/dL (0.2-1.3); Total Protein 5.8 g/dL (6.3-8.2)
--- NOTE | 2023-07-19 20:37 | XR ---
EXAMINATION TYPE: XR soft tissue neck DATE OF EXAM: 07/19/2023 6:31 PM CLINICAL INDICATION:Male, 62 years old with history of mass; [facility] COMPARISON: CT neck chest 01/10/2023 TECHNIQUE: The soft tissues of the neck were imaged in frontal and lateral views. FINDINGS: Degenerative changes of the cervical spine with mild reversal again seen. Prevertebral soft tissues appear unremarkable. There is no evidence of mass affect or tracheal deviation. Some subglottic soft tissue fullness appears generally similar to the previous CT. No evidence of hyp opharyngeal distention. No radiopaque foreign body is seen. Included lung apices are clear. IMPRESSION: No acute abnormality or significant interval change within the soft tissues of the neck.
[2023-07-19] MEDS ORDERED: NALOXONE 0.4 MG/ML 1 ML VIAL IV PRN (20:51)
[2023-07-19] MEDS ORDERED: NALOXONE 0.4 MG/ML 1 ML VIAL IVP PRN (20:51)
[2023-07-19] MEDS: IPRATROPIUM-ALBUTEROL 3 ML NEB INHALATION STA (21:50)
[2023-07-19] MEDS: methylPREDNISolone SOD SUCCI 125 MG/2 ML VIAL IV STA (21:59)
[2023-07-19] MEDS: HYDROmorphone 1 MG/ML 1 ML SYRINGE IVP PRN (22:00)
[2023-07-19] MEDS: SODIUM CHLORIDE 0.9% 1,000 ML IV SCH (22:00)
[2023-07-19] MEDS: MORPHINE SULFATE 4 MG/ML SYRINGE IV PRN (23:08)
[2023-07-20] MEDS: methylPREDNISolone SOD SUCCI 125 MG/2 ML VIAL IV SCH (01:28)
[2023-07-20] MEDS: IPRATROPIUM-ALBUTEROL 3 ML NEB INHALATION SCH (07:54)
[2023-07-20] MEDS: PANTOPRAZOLE 40 MG/10 ML VIAL IV SCH ×2 (08:02→20:14)
[2023-07-20] MEDS ORDERED: ALBUTEROL NEBULIZED 2.5 MG/3 ML INHALATION PRN (10:26)
[2023-07-20] MEDS: ONDANSETRON 4 MG/2 ML VIAL IVP PRN (11:18)
[2023-07-20] MEDS: HYDROcodone/APAP 15 ML SOLUTION PO PRN (11:18)
[2023-07-20] MEDS: LIDOCAINE VISCOUS 2% 15 ML CUP MUCOUS MEM PRN (11:19)
[2023-07-20] MEDS: AMPICILLIN-SULBACTAM 3 GM in SODIUM CHLORIDE 0.9% 100 ML IVPB SCH (11:20)
--- NOTE | 2023-07-20 12:05 | XR ---
EXAMINATION TYPE: XR chest 1V DATE OF EXAM: 07/20/2023 COMPARISON: 07/09/2023 HISTORY: 62-year-old male difficulty in breathing, shortness of breath TECHNIQUE: Single frontal view of the chest is obtained. FINDINGS: Heart normal size. Aorta and pulmonary vasculature within normal limits. Patchy bibasilar opacities. Otherwise, no other consolidation or pleural effusion. IMPRESSION: COPD with patchy bibasilar atelectasis versus early patchy infiltrates.
[2023-07-20 13:10] VITALS: BMI 17.9
[2023-07-20] MEDS: ONDANSETRON 4 MG TAB PO SCH (15:04)
--- NOTE | 2023-07-20 15:58 | P.CNPUL ---
History of Present Illness Consult date: 07/20/23 Requesting physician: Aruna Miguel Reason for consult: dyspnea, COPD, hypoxemia Chief complaint: Shortness of breath, cough, congestion History of present illness: This is a very pleasant 62-year-old male patient with a history of small cell lung cancer in his left neck lymph node treated back in August 2019. He was subsequently found to have left laryngeal cancer and treated with chemoradiation in 2022. He had ongoing issues with hoarseness and dysphagia. He had a PEG tube placed in December 2022 and receives tube feedings. He also has a history of chronic obstructive pulmonary disease and chronic and ongoing tobacco dependence. He presented here to the emergency room with complaints of increasing shortness of breath, cough congestion and weakness. Chest x-ray reveals evidence of COPD with patchy bibasilar atelectasis and early patchy infiltrates. White count 20.4. Hemoglobin 14.0. Platelets 259. Sodium 136. Potassium 4.3. Bicarb 31. BUN 32. Creatinine 0.59. Glucose 104. Viral screen is negative. Procalcitonin negative at 0.07. He has been initiated on DuoNeb and elations, Symbicort, Solu-Medrol. Normal saline at 75 mL/h. He was initiated on Unasyn. He is seen today in consultation in the regular medical floor. He is currently sitting up in bed. Awake and alert in no acute distress. He is maintaining good O2 saturations in the 90s on 4 L/min per nasal cannula. He does not have home oxygen. He is receiving Jevity at 30 mL/h. He is afebrile. Hemodynamically stable. Review of Systems REVIEW OF SYSTEMS: CONSTITUTIONAL: Generalized weakness. Denies any recent significant weight loss or weight gain. EYES: Denies change in vision. EARS, NOSE, MOUTH, THROAT: Denies headaches, denies sore throat. CARDIOVASCULAR: Denies chest pain, palpitations or syncopal episodes. RESPIRATORY: Positive for shortness of breath, cough, congestion no hemoptysis. GASTROINTESTINAL: Denies change in appetite, denies abdominal pain GENITOURINARY: Denies hematuria, denies infections. MUSKULOSKELETAL: Denies pain, denies swelling. INTEGUMENTARY: Denies rash, denies eczema. NEUROLOGICAL: Denies recent memory loss, no recent seizure activity. PSYCHIATRIC: Denies anxiety, denies depression. HEMATOLOGIC/LYMPHATIC: Denies anemia, denies enlarged lymph nodes. 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, recent dx of laryngeal cancer dx mar 2022 History of Any Multi-Drug Resistant Organisms: None Reported Past Surgical History: No Surgical Hx Reported Additional Past Surgical History / Comment(s): Bronchoscopies, colonoscopy Past Anesthesia/Blood Transfusion Reactions: No Reported Reaction Past Psychological History: No Psychological Hx Reported Additional Psychological History / Comment(s): Pt resides with his spouse and 4 daughters Smoking Status: Current some day smoker Past Alcohol Use History: None Reported Additional Past Alcohol Use History / Comment(s): Pt started smoking in 1978 and attempting to quit, 1 cigarette a day. Past Drug Use History: Marijuana Additional Drug Use History / Comment(s): Medical marijuana - Past Family History Mother Family Medical History: No Reported History Father Family Medical History: Cancer Additional Family Medical History / Comment(s): Prostate ca Medications and Allergies Home Medications Medication Instructions Recorded Confirmed Type Lidocaine Viscous 2% [Xylocaine 5 ml MUCOUS MEM Q1H PRN 01/10/23 07/19/23 History Viscous] HYDROcodone/APAP [[place] Elixir 15 ml PO Q6H PRN 07/09/23 07/19/23 History 7.5-325Mg/15Ml] Ipratropium-Albuterol Nebulize 3 ml INHALATION RT-QID PRN 07/09/23 07/19/23 History [Duoneb 0.5 mg-3 mg/3 ml Soln] Vitamin E (Dl,Tocopheryl Acet) 400 unit PO DAILY 07/09/23 07/19/23 History [Vitamin E (400 Iu = 180 mg)] ondansetron HCL [Zofran] 8 mg PO Q12HR 07/09/23 07/19/23 History Albuterol Inhaler [Ventolin Hfa 2 puff INHALATION RT-Q6H PRN #1 07/13/23 07/19/23 Rx Inhaler] each Budesonide/Formoterol Fumarate 2 puff INHALATION RT-BID 07/19/23 07/19/23 History [Symbicort 80-4.5 Mcg Inhaler] Allergies Allergy/AdvReac Type Severity Reaction Status Date / Time No Known Allergies Allergy Verified 07/19/23 20:17 Physical Exam Vitals: Vital Signs Temp Pulse Pulse Resp BP BP Pulse Ox 07/20/23 15:37 99 07/20/23 15:33 102 H 07/20/23 15:22 101 H 07/20/23 13:05 97.6 F 101 H 20 131/83 99 07/20/23 11:41 90 07/20/23 11:27 89 07/20/23 08:06 109 H 07/20/23 08:00 22 07/20/23 07:55 108 H 07/20/23 07:40 97.7 F 108 H 20 131/90 96 07/20/23 01:12 97.5 F L 71 19 156/93 99 07/20/23 00:57 71 19 07/19/23 23:13 107 H 20 144/89 96 07/19/23 22:58 104 H 16 104/72 99 07/19/23 21:59 101 H 07/19/23 21:50 114 H 07/19/23 21:29 98.1 F 110 H 24 99/72 95 07/19/23 20:00 110 H 20 138/90 95 07/19/23 19:00 120 H 22 120/71 93 L 07/19/23 18:15 110 H 07/19/23 18:06 113 H 07/19/23 18:00 111 H 20 114/78 97 07/19/23 17:20 97.9 F 114 H 36 H 124/82 96 Intake and Output 07/20/23 07/20/23 07/20/23 06:59 14:59 22:59 Intake Total 800 Balance 800 Intake: Oral 800 Other: Voiding Method Toilet Toilet Urinal Urinal # Voids 0 Weight 53.524 kg 54.2 kg GENERAL EXAM: Alert, very pleasant, cachectic, 62-year-old male, appears older than stated age, on 4 L nasal cannula, comfortable in no apparent distress. HEAD: Normocephalic. EYES: Normal reaction of pupils, equal size. NOSE: Clear with pink turbinates. THROAT: Hoarseness. Soft voice. No erythema or exudates. NECK: No masses, no JVD. CHEST: No chest wall deformity. LUNGS: Equal air entry with bilateral wheeze, diminished. CVS: S1 and S2 normal with no audible murmur, regular rhythm. ABDOMEN: PEG tube exit site clean and dry. No hepatosplenomegaly, normal bowel sounds, no guarding or rigidity. SPINE: No scoliosis or deformity SKIN: No rashes CENTRAL NERVOUS SYSTEM: No focal deficits, tone is normal in all 4 extremities. EXTREMITIES: There is no peripheral edema. No clubbing, no cyanosis. Peripheral pulses are intact. Results - Laboratory Findings CBC and BMP: 07/19/23 19:07 07/19/23 19:07 Abnormal lab findings: Abnormal Labs 07/19/23 07/19/23 19:07 19:07 WBC 20.4 H Neutrophils # 17.7 H Sodium 136 L Carbon Dioxide 31 H BUN 32 H Creatinine 0.59 L Glucose 104 H ALT 62 H Total Protein 5.8 L Albumin 3.4 L - Diagnostic Findings Chest x-ray: image reviewed Assessment and Plan Assessment: Acute hypoxemic respiratory failure secondary to an acute exacerbation of chronic obstructive pulmonary disease History of chronic tobacco dependence History of laryngeal cancer status post chemoradiation in 2022 History of dysphagia secondary to above status post PEG tube placement in December 2022 History of small cell lung cancer in a cervical lymph node status post chemoradiation in 2019 History of marijuana use Plan: The patient was seen and evaluated Chest x-ray, labs and medications reviewed Continue DuoNeb inhalations, Symbicort, Solu-Medrol Procalcitonin within normal limits Discontinue Unasyn Continue tube feedings Heparin for DVT prophylaxis We will continue to follow and make further recommendations based on his clinical status I have personally seen and examined the patient, performed the documentation and the assessment and plan as written. Number of minutes spent on the visit: 20.
[2023-07-20] MEDS: BENZOCAINE SPRAY 1 CAN MUCOUS MEM PRN (17:19)
[2023-07-20] MEDS: HEPARIN SODIUM,PORCINE 5,000 UNIT/ML 1 ML VIAL SQ SCH (20:32)
[2023-07-20] MEDS: SYMBICORT 80-4.5 MCG INHALER INHALATION SCH (21:43)
--- NOTE | 2023-07-20 22:41 | P.HPIM ---
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 Patient has been having ongoing issues with hoarseness. Patient also has history of COPD, currently some day smoker and medical marijuana use. Patient was recently admitted to hospital due to acute COPD exacerbation. Patient presented ER with complaints of worsening shortness of breath cough congestion and generalized weakness. Patient has been afebrile. No complaints of chest pain. No nausea vomiting abdominal pain or diarrhea. On admission patient was tachycardic and tachypneic. Chest x-ray showed COPD with patchy bibasilar atelectasis versus early patchy infiltrates. Soft tissue neck x-ray showed no acute abnormality or significant interval change within the soft tissues of the neck. Review of Systems Constitutional: Patient denies any fever or chills . Patient does have generalized weakness. Denied weight loss. Abdomen: Patient denied nausea vomiting and diarrhea and abdominal pain. Cardiovascular: Patient denies any chest pain positive for short of breath no palpitations. No leg swelling Respiratory: patient denied any cough without sputum production. Positive for shortness of breath Neurologic: Patient denied any numbness or tingling headache. Musculoskeletal: Patient denies any complaints of joint swelling or deformity. Skin: Negative Psychiatric: Negative Endocrine: No heat or cold intolerance. No recent weight gain. Genitourinary: No dysuria or hematuria. All other 14 point ROS negative except the above 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, recent dx of laryngeal cancer dx mar 2022 History of Any Multi-Drug Resistant Organisms: None Reported Past Surgical History: No Surgical Hx Reported Additional Past Surgical History / Comment(s): Bronchoscopies, colonoscopy Past Anesthesia/Blood Transfusion Reactions: No Reported Reaction Past Psychological History: No Psychological Hx Reported Additional Psychological History / Comment(s): Pt resides with his spouse and 4 daughters Smoking Status: Current some day smoker Past Alcohol Use History: None Reported Additional Past Alcohol Use History / Comment(s): Pt started smoking in 1978 and attempting to quit, 1 cigarette a day. Past Drug Use History: Marijuana Additional Drug Use History / Comment(s): Medical marijuana - Past Family History Mother Family Medical History: No Reported History Father Family Medical History: Cancer Additional Family Medical History / Comment(s): Prostate ca Medications and Allergies Home Medications Medication Instructions Recorded Confirmed Type Lidocaine Viscous 2% [Xylocaine 5 ml MUCOUS MEM Q1H PRN 01/10/23 07/19/23 History Viscous] HYDROcodone/APAP [Dennison Elixir 15 ml PO Q6H PRN 07/09/23 07/19/23 History 7.5-325Mg/15Ml] Ipratropium-Albuterol Nebulize 3 ml INHALATION RT-QID PRN 07/09/23 07/19/23 History [Duoneb 0.5 mg-3 mg/3 ml Soln] Vitamin E (Dl,Tocopheryl Acet) 400 unit PO DAILY 07/09/23 07/19/23 History [Vitamin E (400 Iu = 180 mg)] ondansetron HCL [Zofran] 8 mg PO Q12HR 07/09/23 07/19/23 History Albuterol Inhaler [Ventolin Hfa 2 puff INHALATION RT-Q6H PRN #1 07/13/23 07/19/23 Rx Inhaler] each Budesonide/Formoterol Fumarate 2 puff INHALATION RT-BID 07/19/23 07/19/23 History [Symbicort 80-4.5 Mcg Inhaler] Allergies Allergy/AdvReac Type Severity Reaction Status Date / Time No Known Allergies Allergy Verified 07/19/23 20:17 Physical Exam Vitals: Vital Signs Temp Pulse Pulse Resp BP BP Pulse Ox 07/20/23 08:06 109 H 07/20/23 07:55 108 H 07/20/23 07:40 97.7 F 108 H 20 131/90 96 07/20/23 01:12 97.5 F L 71 19 156/93 99 07/20/23 00:57 71 19 07/19/23 23:13 107 H 20 144/89 96 07/19/23 22:58 104 H 16 104/72 99 07/19/23 21:59 101 H 07/19/23 21:50 114 H 07/19/23 21:29 98.1 F 110 H 24 99/72 95 07/19/23 20:00 110 H 20 138/90 95 07/19/23 19:00 120 H 22 120/71 93 L 07/19/23 18:15 110 H 07/19/23 18:06 113 H 07/19/23 18:00 111 H 20 114/78 97 07/19/23 17:20 97.9 F 114 H 36 H 124/82 96 Intake and Output 07/19/23 07/20/23 07/20/23 22:59 06:59 14:59 Other: Voiding Method Toilet Urinal # Voids 0 Weight 53.524 kg 53.524 kg PHYSICAL EXAMINATION: Patient is lying in the bed comfortably, no acute distress, awake alert and oriented.. HEENT: Normocephalic. Neck is supple. Pupils reactive. Nostrils clear. Oral cavity is moist. Hoarseness Neck reveals no JVD, carotid bruits, or thyromegaly. CHEST EXAMINATION: Trachea is central. Symmetrical expansion. Bilateral expiratory wheezing and rhonchi. Nonlabored breathing.. CARDIAC: Normal S1, S2 with no gallops. No murmurs ABDOMEN: Soft. Bowel sounds normal. No organomegaly. No abdominal bruits. Extremities: reveal no edema. No clubbing or cyanosis Neurologically awake, alert, oriented x3 with well-coordinated movements. No focal deficits noted Skin: No rash or skin lesions. Psychiatric: Coperative. Nonsuicidal Musculoskeletal: No joint swelling or deformity. Normal range of motion. Results CBC & Chem 7: 07/19/23 19:07 07/19/23 19:07 Labs: Abnormal Lab Results - Last 24 Hours (Table) 07/19/23 07/19/23 Range/Units 19:07 19:07 WBC 20.4 H (3.8-10.6) k/uL Neutrophils # 17.7 H (1.3-7.7) k/uL Sodium 136 L (137-145) mmol/L Carbon Dioxide 31 H (22-30) mmol/L BUN 32 H (9-20) mg/dL Creatinine 0.59 L (0.66-1.25) mg/dL Glucose 104 H (74-99) mg/dL ALT 62 H (4-49) U/L Total Protein 5.8 L (6.3-8.2) g/dL Albumin 3.4 L (3.5-5.0) g/dL Thrombosis Risk Factor Assmnt - DVT/VTE Prophylaxis DVT/VTE Prophylaxis: Pharmacologic Prophylaxis ordered - Choose All That Apply Any of the Below Risk Factors Present?: No Other Risk Factors: Yes Each Risk Factor Represents 2 Points: Age 61-74 years Other congenital or acquired thrombophilia - If yes, enter type in comment: No Thrombosis Risk Factor Assessment Total Risk Factor Score: 2 Thrombosis Risk Factor Assessment Level: Low Risk Assessment and Plan Assessment: Acute hypoxemic respite failure secondary to acute COPD exacerbation history of small cell lung cancer s/p chemo in 2019 Laryngeal cancer complicated by dysphagia and esophagitis. Completed chemo and radiation Dysphagia patient underwent PEG tube placement on 01/13/2023 Currently some day smoker Medical marijuana use DVT prophylaxis and GI prophylaxis Plan: Patient will be continued on IV Solu-Medrol 60 mg every 6 hourly, DuoNebs and oxygen supplementation as needed. Follow-up procalcitonin level. Patient was started on Unasyn empirically. Continuous tube feedings and follow- up closely. Pulmonary was consulted for evaluation. Time with Patient: Greater than 30
[2023-07-21 10:59] LABS: HGB 13.1 g/dL (13.0-17.0); MCH 30.5 pg (27.0-32.0); MCV 95.6 FL (80.0-97.0); Mean Platelet Volume 9.3 FL (9.5-12.2); NRBC Per 100 WBC 0 X 10*3/uL (0.00-0.01); Platelet Count 228 X 10*3/uL (140-440); RBC 4.29 X 10*6/uL (4.40-5.60); RDW 13.3 % (11.5-14.5); WBC 33.71 X 10*3/uL (4.50-10.00)
[2023-07-21 11:13] LABS: Blood Urea Nitrogen 20.4 mg/dL (9.0-27.0); Calcium 8.8 mg/dL (8.7-10.3); Carbon Dioxide 28.6 mmol/L (21.6-31.8); Chloride 98 mmol/L (96-109); Glucose 134 mg/dL (70-110); Potassium 4.7 mmol/L (3.5-5.5); Sodium 136 mmol/L (135-145)
[2023-07-21 11:44] LABS: Basophils # (A) 0.07 X 10*3/uL (0.00-0.10); Basophils % (A) 0.2 %; Eosinophils # (A) 0 X 10*3/uL (0.04-0.35); Eosinophils % (A) 0 %; Lymphocytes # (A) 0.26 X 10*3/uL (0.90-5.00); Lymphocytes % (A) 0.8 %; Monocytes # (A) 0.71 X 10*3/uL (0.20-1.00); Monocytes % (A) 2.1 %; Neutrophils # (A) 32.21 X 10*3/uL (1.80-7.70); Neutrophils % (A) 95.5 %
--- NOTE | 2023-07-21 14:01 | P.PN ---
Subjective Progress Note Date: 07/21/23 This is a very pleasant 62-year-old male patient with a history of small cell lung cancer in his left neck lymph node treated back in August 2019. He was subsequently found to have left laryngeal cancer and treated with chemoradiation in 2022. He had ongoing issues with hoarseness and dysphagia. He had a PEG tube placed in December 2022 and receives tube feedings. He also has a history of chronic obstructive pulmonary disease and chronic and ongoing tobacco dependence. He presented here to the emergency room with complaints of increasing shortness of breath, cough congestion and weakness. Chest x-ray reveals evidence of COPD with patchy bibasilar atelectasis and early patchy infiltrates. White count 20.4. Hemoglobin 14.0. Platelets 259. Sodium 136. Potassium 4.3. Bicarb 31. BUN 32. Creatinine 0.59. Glucose 104. Viral screen is negative. Procalcitonin negative at 0.07. He has been initiated on DuoNeb and elations, Symbicort, Solu-Medrol. Normal saline at 75 mL/h. He was initiated on Unasyn. He is seen today in consultation in the regular medical floor. He is currently sitting up in bed. Awake and alert in no acute distress. He is maintaining good O2 saturations in the 90s on 4 L/min per nasal cannula. He does not have home oxygen. He is receiving Jevity at 30 mL/h. He is afebrile. Hemodynamically stable. The patient is seen today July 21, 2023 in follow-up on the regular medical floor. He is currently sitting up in bed. Awake and alert in no acute distre ss. He is maintaining good O2 saturations in the 90s on 2 L/min per nasal cannula. He has normal saline at 75 MLS per hour. He has remained NPO. The plan is for modified barium swallow today. Sputum culture is pending. White count 33.7. Hemoglobin 13.1. Platelets 228. Sodium 136. Potassium 4.7. Bicarb 29. BUN 20. Creatinine 0.5. Glucose 134. Procalcitonin was 0.07. He remains on DuoNeb inhalations, Pulmicort and Perforomist inhalations, Solu- Medrol. He is receiving Jevity 1.5 tube feedings at 10 mLs per hour with a goal of 51. Objective - Vital Signs Vital signs: Vital Signs Temp 97.4 F L 07/21/23 07:12 Pulse 92 07/21/23 12:45 Resp 19 07/21/23 07:12 BP 136/85 07/21/23 07:12 Pulse Ox 98 07/21/23 08:31 FiO2 Intake & Output 07/20/23 07/21/23 07/21/23 18:59 06:59 18:59 Intake Total 800 255 Balance 800 255 Weight 54.2 kg Intake: Oral 800 Tube Feeding 255 Other: Voiding Method Toilet Toilet Urinal Urinal - Exam GENERAL EXAM: Alert, pleasant, thin 62-year-old male, on 2 L nasal cannula, comfortable in no apparent distress. HEAD: Normocephalic. EYES: Normal reaction of pupils, equal size. NOSE: Clear with pink turbinates. THROAT: Hoarseness. Soft voice. No erythema or exudates. NECK: No masses, no JVD. CHEST: No chest wall deformity. LUNGS: Equal air entry with bilateral wheeze, diminished. CVS: S1 and S2 normal with no audible murmur, regular rhythm. ABDOMEN: PEG tube exit site clean and dry. No hepatosplenomegaly, normal bowel sounds, no guarding or rigidity. SPINE: No scoliosis or deformity SKIN: No rashes CENTRAL NERVOUS SYSTEM: No focal deficits, tone is normal in all 4 extremities. EXTREMITIES: There is no peripheral edema. No clubbing, no cyanosis. Peripheral pulses are intact. - Labs CBC & Chem 7: 07/21/23 06:55 07/21/23 06:55 Labs: Abnormal Lab Results - Last 24 Hours (Table) 07/21/23 07/21/23 Range/Units 06:55 06:55 WBC 33.71 H (4.50-10.00) X 10*3/uL RBC 4.29 L (4.40-5.60) X 10*6/uL MPV 9.3 L (9.5-12.2) FL Immature Gran # 0.46 H (0.00-0.04) X 10*3/uL Neutrophils # 32.21 H (1.80-7.70) X 10*3/uL Lymphocytes # 0.26 L (0.90-5.00) X 10*3/uL Eosinophils # 0 L (0.04-0.35) X 10*3/uL Creatinine 0.5 L (0.6-1.5) mg/dL BUN/Creatinine Ratio 40.80 H (12.00-20.00) Ratio Glucose 134 H (70-110) mg/dL Microbiology - Last 24 Hours (Table) 07/20/23 20:10 Gram Stain - Preliminary Sputum Assessment and Plan Assessment: Acute hypoxemic respiratory failure secondary to an acute exacerbation of chronic obstructive pulmonary disease. Procalcitonin 0.07 History of chronic tobacco dependence History of laryngeal cancer status post chemoradiation in 2022 History of dysphagia secondary to above status post PEG tube placement in December 2022. Currently undergoing swallow evaluation History of small cell lung cancer in a cervical lymph node status post chemoradiation in 2019 History of marijuana use Plan: The patient was seen and evaluated Labs and medications reviewed Speech therapy notes reviewed Plan is for modified barium swallow today Continue DuoNeb inhalations, Symbicort, Solu-Medrol Titrate the FiO2 as tolerated Continue tube feedings Heparin for DVT prophylaxis We will continue to follow This patient was seen independently by the pulmonary nurse practitioner addressing pulmonary issues I have personally seen and examined the patient, performed the documentation and the assessment and plan as written. Number of minutes spent on the visit: 24.
--- NOTE | 2023-07-21 16:25 | FL ---
EXAMINATION TYPE: FL barium swallow w video DATE OF EXAM: 07/21/2023 CLINICAL HISTORY: 62-year-old male patient with history of head and neck and lung cancer status post radiation therapy. Patient on tube feeds and throat pain. Assess for aspiration. TECHNIQUE: Deglutition study is performed utilizing thin liquid barium, honey and nectar thick liqui d barium, barium thick pudding, and barium coated cracker. Total fluoroscopy time 2 minutes 41 seconds. Total images: None. Real-time fluoroscopy support was provided to speech pathology. Total DAP: 25 mGycm2. COMPARISON: None. FINDINGS: Swallow initiation was delayed with bolus free spilling to the level of the vallecula and piriform si nuses. There is diffuse soft tissue thickening relating to post radiation therapy change. Markedly di minished laryngeal excursion and epiglottic inversion. There is deep penetration along the posterior wall with all consistencies but no jean aspiration during the course of the exam. IMPRESSION: 1. Post radiation therapy changes with thickening of the soft tissues. There is diminished laryngeal excursion and epiglottic inversion. 2. Deep penetration along the posterior wall with all tested consistencies. Please refer to speech therapist notes for further details if necessary.
[2023-07-21] MEDS: FORMOTEROL FUMARATE 20 MCG/2 ML NEBU INHALATION SCH (18:28)
[2023-07-21] MEDS: BUDESONIDE 1 MG/2 ML NEBU INHALATION SCH (18:28)
--- NOTE | 2023-07-21 23:40 | P.PN ---
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 Patient albarado s been having ongoing issues with hoarseness. Patient also has history of COPD, currently some day smoker and medical marijuana use. Patient was recently admitted to hospital due to acute COPD exacerbation. Patient presented ER with complaints of worsening shortness of breath cough congestion and generalized weakness. Patient has been afebrile. No complaints of chest pain. No nausea vomiting abdominal pain or diarrhea. On admission patient was tachycardic and tachypneic. Chest x-ray showed COPD with patchy bibasilar atelectasis versus early patchy infiltrates. Soft tissue neck x-ray showed no acute abnormality or significant interval change within the soft tissues of the neck. 07/21/2023 Patient is lying in the bed. Awake alert and oriented. Still complaining of shortness of breath and diffuse wheezing noted on exam. Patient is also complaining of cough without production. No nausea or vomiting. Patient had swallow evaluation done today. Fluoroscopic swallow study showed postradiation therapy changes with thickening of soft tissues. Deep penetration along the posterior wall with all tested consistencies. Recommends tube feeding at this time. Laboratory data showed WBC 33.7 hemoglobin 13.1 and platelets 228. Sodium 136 potassium 4.7 chloride 98 bicarb is 28.6 BUN 20.4 and creatinine 0.5 and blood sugar 134 Pulmonary is on board. Current medications reviewed. Objective - Vital Signs Vital signs: Vital Signs Temp 97.4 F L 07/21/23 07:12 Pulse 97 07/21/23 08:42 Resp 19 07/21/23 07:12 BP 136/85 07/21/23 07:12 Pulse Ox 98 07/21/23 08:31 FiO2 Intake & Output 07/20/23 07/21/23 07/21/23 18:59 06:59 18:59 Intake Total 800 Balance 800 Weight 54.2 kg Intake: Oral 800 Other: Voiding Method Toilet Toilet Urinal Urinal - Exam PHYSICAL EXAMINATION: Patient is lying in the bed comfortably, no acute distress, awake alert and oriented.. HEENT: Normocephalic. Neck is supple. Pupils reactive. Nostrils clear. Oral cavity is moist. Hoarseness Neck reveals no JVD, carotid bruits, or thyromegaly. CHEST EXAMINATION: Trachea is central. Symmetrical expansion. Bilateral expiratory wheezing and rhonchi. Nonlabored breathing.. CARDIAC: Normal S1, S2 with no gallops. No murmurs ABDOMEN: Soft. Bowel sounds normal. No organomegaly. No abdominal bruits. Extremities: reveal no edema. No clubbing or cyanosis Neurologically awake, alert, oriented x3 with well-coordinated movements. No focal deficits noted Skin: No rash or skin lesions. Psychiatric: Coperative. Nonsuicidal Musculoskeletal: No joint swelling or deformity. Normal range of motion. - Labs CBC & Chem 7: 07/21/23 06:55 07/21/23 06:55 Assessment and Plan Assessment: Acute hypoxemic respite failure secondary to acute COPD exacerbation history of small cell lung cancer s/p chemo in 2019 Laryngeal cancer complicated by dysphagia and esophagitis. Completed chemo and radiation Dysphagia patient underwent PEG tube placement on 01/13/2023 Currently some day smoker Medical marijuana use DVT prophylaxis and GI prophylaxis Plan: Patient will be continued on IV Solu-Medrol 60 mg every 6 hourly, DuoNebs and oxygen supplementation as needed. Procalcitonin level is not elevated. Antibiotics has been discontinued. Patient was seen by [facility] and fluoroscopy swallow study was done, deep penetration with all consistencies. Recommends tube feeding.. Patient is tolerating tube feedings.. IV fluids to be discontinued. Follow-up CBC and BMP tomorrow. Pulmonary is on board.. Time with Patient: Greater than 30
[2023-07-22 10:54] LABS: Basophils # (A) 0.03 X 10*3/uL (0.00-0.10); Basophils % (A) 0.1 %; Eosinophils # (A) 0.98 X 10*3/uL (0.04-0.35); Eosinophils % (A) 4.5 %; HCT 36.6 % (39.6-50.0); HGB 11.8 g/dL (13.0-17.0); Lymphocytes # (A) 0.28 X 10*3/uL (0.90-5.00); Lymphocytes % (A) 1.3 %; MCH 29.9 pg (27.0-32.0); MCHC 32.2 g/dL (32.0-37.0); MCV 92.9 FL (80.0-97.0); Mean Platelet Volume 9.2 FL (9.5-12.2); Monocytes # (A) 0.83 X 10*3/uL (0.20-1.00); Monocytes % (A) 3.8 %; NRBC Per 100 WBC 0 X 10*3/uL (0.00-0.01); Neutrophils % (A) 89.8 %; Platelet Count 210 X 10*3/uL (140-440); RBC 3.94 X 10*6/uL (4.40-5.60); RBC Morphology Normal (Normal); WBC 21.84 X 10*3/uL (4.50-10.00)
[2023-07-22 10:59] LABS: Blood Urea Nitrogen 20.4 mg/dL (9.0-27.0); Chloride 98 mmol/L (96-109); Glucose 112 mg/dL (70-110); Potassium 4.7 mmol/L (3.5-5.5); Sodium 136 mmol/L (135-145)
[2023-07-22 11:00] LABS: Calcium 8.8 mg/dL (8.7-10.3); Carbon Dioxide 29.9 mmol/L (21.6-31.8)
--- NOTE | 2023-07-22 12:51 | P.PN ---
Subjective Progress Note Date: 07/22/23 This is a very pleasant 62-year-old male patient with a history of small cell lung cancer in his left neck lymph node treated back in August 2019. He was subsequently found to have left laryngeal cancer and treated with chemoradiation in 2022. He had ongoing issues with hoarseness and dysphagia. He had a PEG tube placed in December 2022 and receives tube feedings. He also has a history of chronic obstructive pulmonary disease and chronic and ongoing tobacco dependence. He presented here to the emergency room with complaints of increasing shortness of breath, cough congestion and weakness. Chest x-ray reveals evidence of COPD with patchy bibasilar atelectasis and early patchy infiltrates. White count 20.4. Hemoglobin 14.0. Platelets 259. Sodium 136. Potassium 4.3. Bicarb 31. BUN 32. Creatinine 0.59. Glucose 104. Viral screen is negative. Procalcitonin negative at 0.07. He has been initiated on DuoNeb and elations, Symbicort, Solu-Medrol. Normal saline at 75 mL/h. He was initiated on Unasyn. He is seen today in consultation in the regular medical floor. He is currently sitting up in bed. Awake and alert in no acute distress. He is maintaining good O2 saturations in the 90s on 4 L/min per nasal cannula. He does not have home oxygen. He is receiving Jevity at 30 mL/h. He is afebrile. Hemodynamically stable. The patient is seen today July 21, 2023 in follow-up on the regular medical floor. He is currently sitting up in bed. Awake and alert in no acute distre ss. He is maintaining good O2 saturations in the 90s on 2 L/min per nasal cannula. He has normal saline at 75 MLS per hour. He has remained NPO. The plan is for modified barium swallow today. Sputum culture is pending. White count 33.7. Hemoglobin 13.1. Platelets 228. Sodium 136. Potassium 4.7. Bicarb 29. BUN 20. Creatinine 0.5. Glucose 134. Procalcitonin was 0.07. He remains on DuoNeb inhalations, Pulmicort and Perforomist inhalations, Solu- Medrol. He is receiving Jevity 1.5 tube feedings at 10 mLs per hour with a goal of 51. The patient is seen today July 22, 2023 in follow-up on the regular medical floor. He is resting comfortably in bed. Awake and alert in no acute distress. He is maintaining good O2 saturations in the 90s on 3 L/min per nasal cannula. His procalcitonin was 0.07. His barium swallow not reveal significant aspiration though his risk factor remains high based on the severity of his dysphagia and persistent deep penetration events. Speech has allowed pleasure feeding and small bites versus meals. He is continued on Jevity tube feedings at a rate of 30 with a goal of 51 mL/h. White count 21.8. Hemoglobin 11.8. Platelets 210. Sodium 136. Potassium 4.7. Bicarb 30. BUN 20. Creatinine 0.6. Glucose 112. He remains on DuoNeb ventilations, Pulmicort and performing scintillations, IV Solu-Medrol. Heparin for DVT prophylaxis. Objective - Vital Signs Vital signs: Vital Signs Temp 98.7 F 07/22/23 07:35 Pulse 102 H 07/22/23 12:27 Resp 14 07/22/23 09:30 BP 130/81 07/22/23 07:35 Pulse Ox 98 07/22/23 07:35 FiO2 Intake & Output 07/21/23 07/22/23 07/22/23 18:59 06:59 18:59 Intake Total 255 Balance 255 Weight 54.5 kg 53.5 kg Intake: Tube Feeding 255 Other: Voiding Method Toilet Urinal - Exam GENERAL EXAM: Alert, pleasant 62-year-old male, sitting up in bed, on 2 L nasal cannula, comfortable in no apparent distress. HEAD: Normocephalic. EYES: Normal reaction of pupils, equal size. NOSE: Clear with pink turbinates. THROAT: Hoarseness. Soft voice. No erythema or exudates. NECK: No masses, no JVD. CHEST: No chest wall deformity. LUNGS: Equal air entry with bilateral wheeze, diminished. CVS: S1 and S2 normal with no audible murmur, regular rhythm. ABDOMEN: PEG tube exit site clean and dry. No hepatosplenomegaly, normal bowel sounds, no guarding or rigidity. SPINE: No scoliosis or deformity SKIN: No rashes CENTRAL NERVOUS SYSTEM: No focal deficits, tone is normal in all 4 extremities. EXTREMITIES: There is no peripheral edema. No clubbing, no cyanosis. Peripheral pulses are intact. - Labs CBC & Chem 7: 07/22/23 07:35 07/22/23 07:35 Labs: Abnormal Lab Results - Last 24 Hours (Table) 07/22/23 07/22/23 Range/Units 07:35 07:35 WBC 21.84 H (4.50-10.00) X 10*3/uL RBC 3.94 L (4.40-5.60) X 10*6/uL Hgb 11.8 L (13.0-17.0) g/dL Hct 36.6 L (39.6-50.0) % MPV 9.2 L (9.5-12.2) FL Immature Gran # 0.12 H (0.00-0.04) X 10*3/uL Neutrophils # 19.60 H (1.80-7.70) X 10*3/uL Lymphocytes # 0.28 L (0.90-5.00) X 10*3/uL Eosinophils # 0.98 H (0.04-0.35) X 10*3/uL BUN/Creatinine Ratio 34.00 H (12.00-20.00) Ratio Glucose 112 H (70-110) mg/dL Microbiology - Last 24 Hours (Table) 07/20/23 20:10 Gram Stain - Preliminary Sputum Assessment and Plan Assessment: Acute hypoxemic respiratory failure secondary to an acute exacerbation of chron ic obstructive pulmonary disease. Procalcitonin 0.07 History of chronic tobacco dependence History of laryngeal cancer status post chemoradiation in 2022 History of dysphagia secondary to above status post PEG tube placement in December 2022. Currently undergoing swallow evaluation History of small cell lung cancer in a cervical lymph node status post chemoradiation in 2019 History of marijuana use Plan: The patient was seen and evaluated Modified barium swallow, labs and medications reviewed Speech therapy notes reviewed No no significant aspiration, he remains at high risk Recommended dysphagia rehabilitation Continue DuoNeb inhalations, Symbicort Discontinue Solu-Medrol, initiate a prednisone taper Evaluate for possible home oxygen Cleared for discharge from the pulmonary standpoint Follow-up in our office in 1 week This patient was seen independently by the pulmonary nurse practitioner addressing pulmonary issues I have personally seen and examined the patient, performed the documentation and the assessment and plan as written. Number of minutes spent on the visit: 23.
--- NOTE | 2023-07-22 17:25 | P.PN ---
Subjective Progress Note Date: 07/22/23 62-year-old male with a past medical history of small cell lung cancer status post chemo/radiation in August 2019, history of laryngeal cancer diagnosed in March 2022 status post chemoradiation and complicated by esophagitis and dysphagia status post PEG placement in December 2022. Patient has been having ongoing issues with hoarseness. Patient also has history of COPD, currently some day smoker and medical marijuana use. Patient was recently admitted to hospital due to acute COPD exacerbation. Patient presented ER with complaints of worsening shortness of breath cough congestion and generalized weakness. Patient has been afebrile. No complaints of chest pain. No nausea vomiting abdominal pain or diarrhea. On admission patient was tachycardic and tachypneic. Chest x-ray showed COPD with patchy bibasilar atelectasis versus early patchy infiltrates. Soft tissue neck x-ray showed no acute abnormality or significant interval change within the soft tissues of the neck. Objective - Vital Signs Vital signs: Vital Signs Temp 98.7 F 07/22/23 07:35 Pulse 102 H 07/22/23 12:27 Resp 14 07/22/23 09:30 BP 130/81 07/22/23 07:35 Pulse Ox 98 07/22/23 07:35 FiO2 Intake & Output 07/21/23 07/22/23 07/22/23 18:59 06:59 18:59 Intake Total 255 Balance 255 Weight 54.5 kg 53.5 kg Intake: Tube Feeding 255 Other: Voiding Method Toilet Urinal - Exam Patient is lying in the bed comfortably, no acute distress, awake alert and allen ented.. HEENT: Normocephalic. Neck is supple. Pupils reactive. Nostrils clear. Oral cavity is moist. Hoarseness Neck reveals no JVD, carotid bruits, or thyromegaly. CHEST EXAMINATION: Trachea is central. Symmetrical expansion. Bilateral expiratory wheezing and rhonchi. Nonlabored breathing.. CARDIAC: Normal S1, S2 with no gallops. No murmurs ABDOMEN: Soft. Bowel sounds normal. No organomegaly. No abdominal bruits. Extremities: reveal no edema. No clubbing or cyanosis Neurologically awake, alert, oriented x3 with well-coordinated movements. No focal deficits noted Skin: No rash or skin lesions. Psychiatric: Coperative. Nonsuicidal Musculoskeletal: No joint swelling or deformity. Normal range of motion. - Labs CBC & Chem 7: 07/22/23 07:35 07/22/23 07:35 Labs: Abnormal Lab Results - Last 24 Hours (Table) 07/22/23 07/22/23 Range/Units 07:35 07:35 WBC 21.84 H (4.50-10.00) X 10*3/uL RBC 3.94 L (4.40-5.60) X 10*6/uL Hgb 11.8 L (13.0-17.0) g/dL Hct 36.6 L (39.6-50.0) % MPV 9.2 L (9.5-12.2) FL Immature Gran # 0.12 H (0.00-0.04) X 10*3/uL Neutrophils # 19.60 H (1.80-7.70) X 10*3/uL Lymphocytes # 0.28 L (0.90-5.00) X 10*3/uL Eosinophils # 0.98 H (0.04-0.35) X 10*3/uL BUN/Creatinine Ratio 34.00 H (12.00-20.00) Ratio Glucose 112 H (70-110) mg/dL Microbiology - Last 24 Hours (Table) 07/20/23 20:10 Gram Stain - Preliminary Sputum Assessment and Plan Assessment: Acute hypoxemic respite failure secondary to acute COPD exacerbation history of small cell lung cancer s/p chemo in 2019 Laryngeal cancer complicated by dysphagia and esophagitis. Completed chemo and radiation Dysphagia patient underwent PEG tube placement on 01/13/2023 Currently some day smoker Medical marijuana use DVT prophylaxis and GI prophylaxis Plan: Patient will be continued on IV Solu-Medrol 60 mg every 6 hourly, DuoNebs and oxygen supplementation as needed. Follow-up procalcitonin level. Patient was started on Unasyn empirically. Continuous tube feedings and follow- up closely. Pulmonary was consulted for evaluation.
[2023-07-23] MEDS: predniSONE 10 MG TAB PO SCH (08:02)
--- NOTE | 2023-07-23 08:06 | P.PN ---
Subjective Progress Note Date: 07/23/23 This is a very pleasant 62-year-old male patient with a history of small cell lung cancer in his left neck lymph node treated back in August 2019. He was subsequently found to have left laryngeal cancer and treated with chemoradiation in 2022. He had ongoing issues with hoarseness and dysphagia. He had a PEG tube placed in December 2022 and receives tube feedings. He also has a history of chronic obstructive pulmonary disease and chronic and ongoing tobacco dependence. He presented here to the emergency room with complaints of increasing shortness of breath, cough congestion and weakness. Chest x-ray reveals evidence of COPD with patchy bibasilar atelectasis and early patchy infiltrates. White count 20.4. Hemoglobin 14.0. Platelets 259. Sodium 136. Potassium 4.3. Bicarb 31. BUN 32. Creatinine 0.59. Glucose 104. Viral screen is negative. Procalcitonin negative at 0.07. He has been initiated on DuoNeb and elations, Symbicort, Solu-Medrol. Normal saline at 75 mL/h. He was initiated on Unasyn. He is seen today in consultation in the regular medical floor. He is currently sitting up in bed. Awake and alert in no acute distress. He is maintaining good O2 saturations in the 90s on 4 L/min per nasal cannula. He does not have home oxygen. He is receiving Jevity at 30 mL/h. He is afebrile. Hemodynamically stable. The patient is seen today July 21, 2023 in follow-up on the regular medical floor. He is currently sitting up in bed. Awake and alert in no acute distre ss. He is maintaining good O2 saturations in the 90s on 2 L/min per nasal cannula. He has normal saline at 75 MLS per hour. He has remained NPO. The plan is for modified barium swallow today. Sputum culture is pending. White count 33.7. Hemoglobin 13.1. Platelets 228. Sodium 136. Potassium 4.7. Bicarb 29. BUN 20. Creatinine 0.5. Glucose 134. Procalcitonin was 0.07. He remains on DuoNeb inhalations, Pulmicort and Perforomist inhalations, Solu- Medrol. He is receiving Jevity 1.5 tube feedings at 10 mLs per hour with a goal of 51. The patient is seen today July 22, 2023 in follow-up on the regular medical floor. He is resting comfortably in bed. Awake and alert in no acute distress. He is maintaining good O2 saturations in the 90s on 3 L/min per nasal cannula. His procalcitonin was 0.07. His barium swallow not reveal significant aspiration though his risk factor remains high based on the severity of his dysphagia and persistent deep penetration events. Speech has allowed pleasure feeding and small bites versus meals. He is continued on Jevity tube feedings at a rate of 30 with a goal of 51 mL/h. White count 21.8. Hemoglobin 11.8. Platelets 210. Sodium 136. Potassium 4.7. Bicarb 30. BUN 20. Creatinine 0.6. Glucose 112. He remains on DuoNeb ventilations, Pulmicort and performing scintillations, IV Solu-Medrol. Heparin for DVT prophylaxis. The patient is seen today July 23, 2023 in follow-up on the regular medical floor. He is currently sitting up in bed. Currently somewhat short of breath. Awaiting a breathing treatment. He had been doing quite well. He is maintaining good O2 saturations in the 90s on 3 L/min per nasal cannula. He is receiving Jevity at 65 MLS per hour. He is continued on DuoNeb ventilations, Pulmicort and Perforomist inhalations, prednisone taper. Labs are pending today. He is on heparin for DVT prophylaxis. Objective - Vital Signs Vital signs: Vital Signs Temp 98.3 F 07/23/23 02:00 Pulse 113 H 07/23/23 02:00 Resp 20 07/23/23 02:00 BP 133/83 07/23/23 02:00 Pulse Ox 95 07/23/23 02:00 FiO2 Intake & Output 07/22/23 07/23/23 07/23/23 18:59 06:59 18:59 Intake Total 360 1110 Balance 360 1110 Weight 53.5 kg Intake: Oral 360 240 Tube Feeding 780 Other 90 Other: Voiding Method Toilet Toilet Urinal Urinal # Voids 2 - Exam GENERAL EXAM: Alert, very thin 62-year-old male, sitting up in bed, on 3 L nasal cannula. HEAD: Normocephalic. EYES: Normal reaction of pupils, equal size. NOSE: Clear with pink turbinates. THROAT: Hoarseness. Soft voice. No erythema or exudates. NECK: No masses, no JVD. CHEST: No chest wall deformity. LUNGS: Equal air entry with bilateral wheeze, diminished. CVS: S1 and S2 normal with no audible murmur, regular rhythm. ABDOMEN: PEG tube exit site clean and dry. No hepatosplenomegaly, normal bowel sounds, no guarding or rigidity. SPINE: No scoliosis or deformity SKIN: No rashes CENTRAL NERVOUS SYSTEM: No focal deficits, tone is normal in all 4 extremities. EXTREMITIES: There is no peripheral edema. No clubbing, no cyanosis. Peripheral pulses are intact. - Labs CBC & Chem 7: 07/22/23 07:35 07/22/23 07:35 Labs: Abnormal Lab Results - Last 24 Hours (Table) 07/22/23 07/22/23 Range/Units 07:35 07:35 WBC 21.84 H (4.50-10.00) X 10*3/uL RBC 3.94 L (4.40-5.60) X 10*6/uL Hgb 11.8 L (13.0-17.0) g/dL Hct 36.6 L (39.6-50.0) % MPV 9.2 L (9.5-12.2) FL Immature Gran # 0.12 H (0.00-0.04) X 10*3/uL Neutrophils # 19.60 H (1.80-7.70) X 10*3/uL Lymphocytes # 0.28 L (0.90-5.00) X 10*3/uL Eosinophils # 0.98 H (0.04-0.35) X 10*3/uL BUN/Creatinine Ratio 34.00 H (12.00-20.00) Ratio Glucose 112 H (70-110) mg/dL Assessment and Plan Assessment: Acute hypoxemic respiratory failure secondary to an acute exacerbation of chronic obstructive pulmonary disease. Procalcitonin 0.07 History of chronic tobacco dependence History of laryngeal cancer status post chemoradiation in 2022 History of dysphagia secondary to above status post PEG tube placement in December 2022. Currently undergoing swallow evaluation History of small cell lung cancer in a cervical lymph node status post chemoradiation in 2019 History of marijuana use Plan: The patient was seen and evaluated Medications reviewed Still somewhat bronchospastic and wheezing Not quite ready for discharge Continue DuoNeb inhalations, Symbicort Continue prednisone taper Titrate the FiO2 as tolerated Evaluate for possible home oxygen at discharge This patient was seen independently by the pulmonary nurse practitioner addressing pulmonary issues I have personally seen and examined the patient, performed the documentation and the assessment and plan as written. Number of minutes spent on the visit: 24.
[2023-07-23 09:29] LABS: Basophils # (A) 0.03 X 10*3/uL (0.00-0.10); Basophils % (A) 0.1 %; Eosinophils # (A) 0 X 10*3/uL (0.04-0.35); Eosinophils % (A) 0 %; HCT 37.2 % (39.6-50.0); HGB 11.8 g/dL (13.0-17.0); Lymphocytes # (A) 0.89 X 10*3/uL (0.90-5.00); Lymphocytes % (A) 4.2 %; MCHC 31.7 g/dL (32.0-37.0); MCV 94.7 FL (80.0-97.0); Mean Platelet Volume 9.2 FL (9.5-12.2); Monocytes # (A) 1.29 X 10*3/uL (0.20-1.00); Monocytes % (A) 6.2 %; NRBC Per 100 WBC 0 X 10*3/uL (0.00-0.01); Neutrophils # (A) 18.61 X 10*3/uL (1.80-7.70); Neutrophils % (A) 88.8 %; Platelet Count 192 X 10*3/uL (140-440); RBC 3.93 X 10*6/uL (4.40-5.60); RDW 13.2 % (11.5-14.5); WBC 20.97 X 10*3/uL (4.50-10.00)
[2023-07-23 09:47] LABS: BUN/Creat Ratio 35.17 Ratio (12.00-20.00); Blood Urea Nitrogen 21.1 mg/dL (9.0-27.0); Calcium 8.7 mg/dL (8.7-10.3); Carbon Dioxide 31.7 mmol/L (21.6-31.8); Chloride 102 mmol/L (96-109); Glucose 105 mg/dL (70-110); Potassium 4.4 mmol/L (3.5-5.5); Sodium 141 mmol/L (135-145)
--- NOTE | 2023-07-23 16:19 | P.PN ---
Subjective Progress Note Date: 07/23/23 62-year-old male with a past medical history of small cell lung cancer status post chemo/radiation in August 2019, history of laryngeal cancer diagnosed in March 2022 status post chemoradiation and complicated by esophagitis and dysphagia status post PEG placement in December 2022. Patient has been having ongoing issues with hoarseness. Patient also has history of COPD, currently some day smoker and medical marijuana use. Patient was recently admitted to hospital due to acute COPD exacerbation. Patient presented ER with complaints of worsening shortness of breath cough congestion and generalized weakness. Patient has been afebrile. No complaints of chest pain. No nausea vomiting abdominal pain or diarrhea. On admission patient was tachycardic and tachypneic. Chest x-ray showed COPD with patchy bibasilar atelectasis versus early patchy infiltrates. Soft tissue neck x-ray showed no acute abnormality or significant interval change within the soft tissues of the neck. 07/23/2023 Patient is seen and evaluated in follow-up on the regular medical floor. He is currently sitting up in bed. He is maintaining good O2 saturations in the 90s on 3 L/min per nasal cannula. He is receiving Jevity at 65 MLS per hour. He is continued on DuoNeb ventilations, Pulmicort and Perforomist inhalations, prednisone taper. Labs are pending today. He is on heparin for DVT pr ophylaxis. -- Patient is status post PEG tube placement; currently PEG tube being used; dietary on board --- Case management to arrange for tube feeding at time of discharge -- Pulmonary recommending to continue with DuoNeb nebulizer treatments, Symbicort and continue to titrate O2 keeping O2 saturation greater than 92% -- Patient is placed on prednisone taper Objective - Vital Signs Vital signs: Vital Signs Temp 97.5 F L 07/23/23 07:41 Pulse 114 H 07/23/23 08:31 Resp 16 07/23/23 07:41 BP 143/94 07/23/23 07:41 Pulse Ox 98 07/23/23 07:41 FiO2 Intake & Output 07/22/23 07/23/23 07/23/23 18:59 06:59 18:59 Intake Total 360 1110 Balance 360 1110 Weight 53.5 kg Intake: Oral 360 240 Tube Feeding 780 Other 90 Other: Voiding Method Toilet Toilet Urinal Urinal # Voids 2 - Exam Patient is lying in the bed comfortably, no acute distress, awake alert and oriented.. HEENT: Normocephalic. Neck is supple. Pupils reactive. Nostrils clear. Oral cavity is moist. Hoarseness Neck reveals no JVD, carotid bruits, or thyromegaly. CHEST EXAMINATION: Trachea is central. Symmetrical expansion. Bilateral expiratory wheezing and rhonchi. Nonlabored breathing.. CARDIAC: Normal S1, S2 with no gallops. No murmurs ABDOMEN: Soft. Bowel sounds normal. No organomegaly. No abdominal bruits. Extremities: reveal no edema. No clubbing or cyanosis Neurologically awake, alert, oriented x3 with well-coordinated movements. No focal deficits noted Skin: No rash or skin lesions. Psychiatric: Coperative. Nonsuicidal Musculoskeletal: No joint swelling or deformity. Normal range of motion. - Labs CBC & Chem 7: 07/23/23 04:12 07/23/23 04:12 Labs: Abnormal Lab Results - Last 24 Hours (Table) 07/23/23 07/23/23 Range/Units 04:12 04:12 WBC 20.97 H (4.50-10.00) X 10*3/uL RBC 3.93 L (4.40-5.60) X 10*6/uL Hgb 11.8 L (13.0-17.0) g/dL Hct 37.2 L (39.6-50.0) % MCHC 31.7 L (32.0-37.0) g/dL MPV 9.2 L (9.5-12.2) FL Immature Gran # 0.15 H (0.00-0.04) X 10*3/uL Neutrophils # 18.61 H (1.80-7.70) X 10*3/uL Lymphocytes # 0.89 L (0.90-5.00) X 10*3/uL Monocytes # 1.29 H (0.20-1.00) X 10*3/uL Eosinophils # 0 L (0.04-0.35) X 10*3/uL BUN/Creatinine Ratio 35.17 H (12.00-20.00) Ratio Microbiology - Last 24 Hours (Table) 07/20/23 20:10 Gram Stain - Final Sputum Sputum Culture - Final Assessment and Plan Assessment: Acute hypoxemic respite failure secondary to acute COPD exacerbation history of small cell lung cancer s/p chemo in 2019 Laryngeal cancer complicated by dysphagia and esophagitis. Completed chemo and radiation Dysphagia patient underwent PEG tube placement on 01/13/2023 Currently some day smoker Medical marijuana use DVT prophylaxis and GI prophylaxis Plan: Patient will be continued on IV Solu-Medrol 60 mg every 6 hourly, DuoNebs and oxygen supplementation as needed. Follow-up procalcitonin level. Patient was started on Unasyn empirically. Continuous tube feedings and follow-up closely. Pulmonary was consulted for evaluation.
--- NOTE | 2023-07-24 07:54 | P.PN ---
Subjective Progress Note Date: 07/24/23 This is a very pleasant 62-year-old male patient with a history of small cell lung cancer in his left neck lymph node treated back in August 2019. He was subsequently found to have left laryngeal cancer and treated with chemoradiation in 2022. He had ongoing issues with hoarseness and dysphagia. He had a PEG tube placed in December 2022 and receives tube feedings. He also has a history of chronic obstructive pulmonary disease and chronic and ongoing tobacco dependence. He presented here to the emergency room with complaints of increasing shortness of breath, cough congestion and weakness. Chest x-ray reveals evidence of COPD with patchy bibasilar atelectasis and early patchy infiltrates. White count 20.4. Hemoglobin 14.0. Platelets 259. Sodium 136. Potassium 4.3. Bicarb 31. BUN 32. Creatinine 0.59. Glucose 104. Viral screen is negative. Procalcitonin negative at 0.07. He has been initiated on DuoNeb and elations, Symbicort, Solu-Medrol. Normal saline at 75 mL/h. He was initiated on Unasyn. He is seen today in consultation in the regular medical floor. He is currently sitting up in bed. Awake and alert in no acute distress. He is maintaining good O2 saturations in the 90s on 4 L/min per nasal cannula. He does not have home oxygen. He is receiving Jevity at 30 mL/h. He is afebrile. Hemodynamically stable. The patient is seen today July 21, 2023 in follow-up on the regular medical floor. He is currently sitting up in bed. Awake and alert in no acute distre ss. He is maintaining good O2 saturations in the 90s on 2 L/min per nasal cannula. He has normal saline at 75 MLS per hour. He has remained NPO. The plan is for modified barium swallow today. Sputum culture is pending. White count 33.7. Hemoglobin 13.1. Platelets 228. Sodium 136. Potassium 4.7. Bicarb 29. BUN 20. Creatinine 0.5. Glucose 134. Procalcitonin was 0.07. He remains on DuoNeb inhalations, Pulmicort and Perforomist inhalations, Solu- Medrol. He is receiving Jevity 1.5 tube feedings at 10 mLs per hour with a goal of 51. The patient is seen today July 22, 2023 in follow-up on the regular medical floor. He is resting comfortably in bed. Awake and alert in no acute distress. He is maintaining good O2 saturations in the 90s on 3 L/min per nasal cannula. His procalcitonin was 0.07. His barium swallow not reveal significant aspiration though his risk factor remains high based on the severity of his dysphagia and persistent deep penetration events. Speech has allowed pleasure feeding and small bites versus meals. He is continued on Jevity tube feedings at a rate of 30 with a goal of 51 mL/h. White count 21.8. Hemoglobin 11.8. Platelets 210. Sodium 136. Potassium 4.7. Bicarb 30. BUN 20. Creatinine 0.6. Glucose 112. He remains on DuoNeb ventilations, Pulmicort and performing scintillations, IV Solu-Medrol. Heparin for DVT prophylaxis. The patient is seen today July 23, 2023 in follow-up on the regular medical floor. He is currently sitting up in bed. Currently somewhat short of breath. Awaiting a breathing treatment. He had been doing quite well. He is maintaining good O2 saturations in the 90s on 3 L/min per nasal cannula. He is receiving Jevity at 65 MLS per hour. He is continued on DuoNeb ventilations, Pulmicort and Perforomist inhalations, prednisone taper. Labs are pending today. He is on heparin for DVT prophylaxis. The patient is seen today July 24, 2023 in follow-up on the regular medical floor. He is awake and alert in no acute distress. Sitting up in bed. Denies any worsening shortness of breath, cough or congestion. He is maintaining good O2 saturations in the 90s on 2 L nasal cannula. He continues on DuoNeb ventilations, Pulmicort and Perforomist inhalations. Heparin for DVT prophylaxis. His pain is managed with [place] and Dilaudid. Continued on a prednisone taper. Sputum culture revealed no growth. Recent labs revealed a white count of 20.9. Hemoglobin 11.8. Platelets 192. Sodium 141. Potassium 4.4. Bicarb 32. BUN 21. Creatinine 0.6. Glucose 105. He remains on Jevity tube feedings at 65 MLS per hour. Objective - Vital Signs Vital signs: Vital Signs Temp 97.7 F 07/24/23 07:22 Pulse 111 H 07/24/23 07:22 Resp 18 07/24/23 07:22 BP 115/72 07/24/23 07:22 Pulse Ox 97 07/24/23 07:22 FiO2 Intake & Output 07/23/23 07/24/23 07/24/23 18:59 06:59 18:59 Intake Total 520 1110 Balance 520 1110 Weight 54.2 kg Intake: Oral 240 Tube Feeding 520 780 Other 90 Other: Voiding Method Toilet Toilet Urinal Urinal # Voids 1 - Exam GENERAL EXAM: Alert, very thin, pleasant 62-year-old male, on 2 L nasal cannula. HEAD: Normocephalic. EYES: Normal reaction of pupils, equal size. NOSE: Clear with pink turbinates. THROAT: Hoarseness. Soft voice. No erythema or exudates. NECK: No masses, no JVD. CHEST: No chest wall deformity. LUNGS: Equal air entry with bilateral wheeze, diminished. CVS: S1 and S2 normal with no audible murmur, regular rhythm. ABDOMEN: PEG tube exit site clean and dry. No hepatosplenomegaly, normal bowel sounds, no guarding or rigidity. SPINE: No scoliosis or deformity SKIN: No rashes CENTRAL NERVOUS SYSTEM: No focal deficits, tone is normal in all 4 extremities. EXTREMITIES: There is no peripheral edema. No clubbing, no cyanosis. Peripheral pulses are intact. - Labs CBC & Chem 7: 07/23/23 04:12 07/23/23 04:12 Labs: Abnormal Lab Results - Last 24 Hours (Table) 07/23/23 07/23/23 Range/Units 04:12 04:12 WBC 20.97 H (4.50-10.00) X 10*3/uL RBC 3.93 L (4.40-5.60) X 10*6/uL Hgb 11.8 L (13.0-17.0) g/dL Hct 37.2 L (39.6-50.0) % MCHC 31.7 L (32.0-37.0) g/dL MPV 9.2 L (9.5-12.2) FL Immature Gran # 0.15 H (0.00-0.04) X 10*3/uL Neutrophils # 18.61 H (1.80-7.70) X 10*3/uL Lymphocytes # 0.89 L (0.90-5.00) X 10*3/uL Monocytes # 1.29 H (0.20-1.00) X 10*3/uL Eosinophils # 0 L (0.04-0.35) X 10*3/uL BUN/Creatinine Ratio 35.17 H (12.00-20.00) Ratio Microbiology - Last 24 Hours (Table) 07/20/23 20:10 Gram Stain - Final Sputum Sputum Culture - Final Assessment and Plan Assessment: Acute hypoxemic respiratory failure secondary to an acute exacerbation of chronic obstructive pulmonary disease. Procalcitonin 0.07 History of chronic tobacco dependence History of laryngeal cancer status post chemoradiation in 2022 History of dysphagia secondary to above status post PEG tube placement in December 2022. Currently undergoing swallow evaluation History of small cell lung cancer in a cervical lymph node status post chemoradiation in 2019 History of marijuana use Plan: The patient was seen and evaluated Medications and labs reviewed Cleared for discharge from the pulmonary standpoint Continue home DuoNeb inhalations, Symbicort Continue prednisone taper Evaluate for possible home oxygen at discharge This patient was seen independently by the pulmonary nurse practitioner addressing pulmonary issues I have personally seen and examined the patient, performed the documentation and the assessment and plan as written. Number of minutes spent on the visit: 23.
[2023-07-24 09:52] LABS: Basophils # (A) 0.03 X 10*3/uL (0.00-0.10); Basophils % (A) 0.2 %; Eosinophils # (A) 0.07 X 10*3/uL (0.04-0.35); Eosinophils % (A) 0.5 %; HGB 12.6 g/dL (13.0-17.0); Lymphocytes % (A) 7.6 %; MCHC 30.7 g/dL (32.0-37.0); MCV 97.6 FL (80.0-97.0); Mean Platelet Volume 9.6 FL (9.5-12.2); Monocytes # (A) 1.19 X 10*3/uL (0.20-1.00); Monocytes % (A) 8.3 %; NRBC Per 100 WBC 0 X 10*3/uL (0.00-0.01); Neutrophils # (A) 11.89 X 10*3/uL (1.80-7.70); Neutrophils % (A) 82.7 %; Platelet Count 185 X 10*3/uL (140-440); RDW 13.2 % (11.5-14.5); WBC 14.38 X 10*3/uL (4.50-10.00)
[2023-07-24 09:56] LABS: BUN/Creat Ratio 38.17 Ratio (12.00-20.00); Blood Urea Nitrogen 22.9 mg/dL (9.0-27.0); Calcium 8.8 mg/dL (8.7-10.3); Chloride 101 mmol/L (96-109); Glucose 155 mg/dL (70-110); Potassium 4.5 mmol/L (3.5-5.5); Sodium 138 mmol/L (135-145)
--- NOTE | 2023-07-24 14:15 | P.PN ---
Subjective Progress Note Date: 07/24/23 62-year-old male with a past medical history of small cell lung cancer status post chemo/radiation in August 2019, history of laryngeal cancer diagnosed in March 2022 status post chemoradiation and complicated by esophagitis and dysphagia status post PEG placement in December 2022. Patient has been having ongoing issues with hoarseness. Patient also has history of COPD, currently some day smoker and medical marijuana use. Patient was recently admitted to hospital due to acute COPD exacerbation. Patient presented ER with complaints of worsening shortness of breath cough congestion and generalized weakness. Patient has been afebrile. No complaints of chest pain. No nausea vomiting abdominal pain or diarrhea. On admission patient was tachycardic and tachypneic. Chest x-ray showed COPD with patchy bibasilar atelectasis versus early patchy infiltrates. Soft tissue neck x-ray showed no acute abnormality or significant interval change within the soft tissues of the neck. 07/23/2023 Patient is seen and evaluated in follow-up on the regular medical floor. He is currently sitting up in bed. He is maintaining good O2 saturations in the 90s on 3 L/min per nasal cannula. He is receiving Jevity at 65 MLS per hour. He is continued on DuoNeb ventilations, Pulmicort and Perforomist inhalations, prednisone taper. Labs are pending today. He is on heparin for DVT pr ophylaxis. -- Patient is status post PEG tube placement; currently PEG tube being used; dietary on board --- Case management to arrange for tube feeding at time of discharge -- Pulmonary recommending to continue with DuoNeb nebulizer treatments, Symbicort and continue to titrate O2 keeping O2 saturation greater than 92% -- Patient is placed on prednisone taper 24-hour interval change 07/24/2023 Patient is seen and evaluated in follow-up on the regular medical floor. He is awake and alert in no acute distress. Sitting up in bed. Denies any worsening shortness of breath, cough or congestion. He is maintaining good O2 saturations in the 90s on 2 L nasal cannula. -Patient remains on DuoNeb ventilations, Pulmicort and Perforomist inhalations. Heparin for DVT prophylaxis. His pain is managed with Robbins and Dilaudid. Continued on a prednisone taper. - Sputum culture revealed no growth. Recent labs revealed a white count of 20.9. Hemoglobin 11.8. Platelets 192. Sodium 141. Potassium 4.4. Bicarb 32. BUN 21. Creatinine 0.6. Glucose 105. He remains on Jevity tube feedings at 65 MLS per hour. --Patient has been cleared for discharge by pulmonary service -Case management/BIN PACKER on board to make arrangements for tube feeding at time of discharge -Patient stable for discharge once arrangements are made Objective - Vital Signs Vital signs: Vital Signs Temp 97.7 F 07/24/23 07:22 Pulse 110 H 07/24/23 08:38 Resp 18 07/24/23 07:22 BP 115/72 07/24/23 07:22 Pulse Ox 97 07/24/23 07:22 FiO2 Intake & Output 07/23/23 07/24/23 07/24/23 18:59 06:59 18:59 Intake Total 520 1110 Balance 520 1110 Weight 54.2 kg Intake: Oral 240 Tube Feeding 520 780 Other 90 Other: Voiding Method Toilet Toilet Urinal Urinal Urinal # Voids 1 - Exam Patient is lying in the bed comfortably, no acute distress, awake alert and oriented.. HEENT: Normocephalic. Neck is supple. Pupils reactive. Nostrils clear. Oral cavity is moist. Hoarseness Neck reveals no JVD, carotid bruits, or thyromegaly. CHEST EXAMINATION: Trachea is central. Symmetrical expansion. Bilateral expiratory wheezing and rhonchi. Nonlabored breathing.. CARDIAC: Normal S1, S2 with no gallops. No murmurs ABDOMEN: Soft. Bowel sounds normal. No organomegaly. No abdominal bruits. Extremities: reveal no edema. No clubbing or cyanosis Neurologically awake, alert, oriented x3 with well-coordinated movements. No f ocal deficits noted Skin: No rash or skin lesions. Psychiatric: Coperative. Nonsuicidal Musculoskeletal: No joint swelling or deformity. Normal range of motion. - Labs CBC & Chem 7: 07/24/23 04:23 07/24/23 04:23 Labs: Abnormal Lab Results - Last 24 Hours (Table) 07/24/23 07/24/23 Range/Units 04:23 04:23 WBC 14.38 H (4.50-10.00) X 10*3/uL RBC 4.20 L (4.40-5.60) X 10*6/uL Hgb 12.6 L (13.0-17.0) g/dL MCV 97.6 H (80.0-97.0) FL MCHC 30.7 L (32.0-37.0) g/dL Immature Gran # 0.10 H (0.00-0.04) X 10*3/uL Neutrophils # 11.89 H (1.80-7.70) X 10*3/uL Monocytes # 1.19 H (0.20-1.00) X 10*3/uL BUN/Creatinine Ratio 38.17 H (12.00-20.00) Ratio Glucose 155 H (70-110) mg/dL Microbiology - Last 24 Hours (Table) 07/20/23 20:10 Gram Stain - Final Sputum Sputum Culture - Final Assessment and Plan Assessment: Acute hypoxemic respite failure secondary to acute COPD exacerbation history of small cell lung cancer s/p chemo in 2019 Laryngeal cancer complicated by dysphagia and esophagitis. Completed chemo and radiation Dysphagia patient underwent PEG tube placement on 01/13/2023 Currently some day smoker Medical marijuana use DVT prophylaxis and GI prophylaxis Plan: Patient will be continued on IV Solu-Medrol 60 mg every 6 hourly, DuoNebs and oxygen supplementation as needed. Follow-up procalcitonin level. Patient was started on Unasyn empirically. Continuous tube feedings and follow- up closely. Pulmonary was consulted for evaluation.
[2023-07-24 21:19] VITALS: RESP 18
[2023-07-25 07:46] VITALS: BP 113/58; TEMP 98
--- NOTE | 2023-07-25 08:10 | CDI ---
Documentation Clarification Form Date: 07/25/2023 07:21:33 AM From: Florinda Mccall RN CCDS Phone: [phone] Admit Date: 07/19/2023 09:05:00 PM Patient Name: Claudio Lopez Visit Number: [id number] Discharge Date: ATTENTION: The Clinical Documentation Specialists (CDI) and [facility] Coding Staff appreciate your assistance in clarifying documentation. Please respond to the clarification below the line at the bottom and electronically sign. The CDI & [facility] Coding staff will review the response and follow-up if needed. Please note: Queries are made part of the Legal Health Record. If you have any questions, please contact the author of this message via ITS. Dr. Sharon Thompson NP The Registered Dietitian assessment on 07/19 indicates this patient meets criteria for Severe Malnutrition. Based on this information and the findings below, is there an additional diagnosis that is clinically appropriate for this patient? History/Risk Factors: 62 year old male presents to the ED with worsening shortness of breath, cough, congestion and generalized weakness. Medical History: COPD, Laryngeal cancer, Small cell carcinoma lung and every day smoker. 07/19, Clinical Indicators: Registered Dietitian Assessment: Current BMI: 17.9 Wgt: 53.524kg Hgt: 5ft 8inch Poor nutrition intake, difficulty swallowing, appetite fair. Physiological condition causing decreased PO intake due to laryngeal cancer. Evidenced by: Muscle wasting to clavicular region and fat loss to triceps region. Estimated Kcal energy needs 1841 Kcals. Estimated Protein range 1.2-1.5 gams/kg Estimated Fluid needs 1841 mls/day [Cite applicable ASPEN criteria listed below] Treatment: Registered dietitian consult; Diet Education; Monitor Daily Tube feeding Intake and Monitor daily labs for TPN Supplements: Tube Feedng: Jevitiy 1.5 rate 51ml/hr; KCALS from tube 1,836, Protein 78grams Is there an additional diagnosis that is clinically appropriate for this patient? [ x] Severe Protein-Calorie Malnutrition [ ] No additional diagnosis/Not clinically significant [ ] Other condition, please specify [ ] Unable to Determine In responding to this query, please exercise your independent professional judgment. The [facility] Coding Staff and Clinical Documentation Specialists appreciate your assistance in clarifying documentation, maintaining compliance with coding guidelines, accurately documenting patients condition and capturing severity of illness. The fact that a question is asked does not imply that any particular answer is desired or expected. Communication forms are a method of clarifying documentation and are made part of the Legal Health Record. Thank you in advance for your clarification. Last Reviewed September 2022 Reference: Using the ASPEN Guidelines, Undernutrition (Malnutrition) is characterized by at least two of the following six findings. The severity can be determined based on the criteria listed below. Malnutrition Characteristics for Moderate and Severe Malnutrition Type of Malnutrition Acute Illness or Injury Chronic Illness Degree of Malnutrition Non-severe (moderate) Malnutrition Severe Malnutrition Non-severe (moderate) Malnutrition Severe Malnutrition Energy Intake <75% for >7 days = 50% for = 5 days <75% for = 1 month =75% for = 1 month Weight Loss 1-2% in one week, 5% in 1 month, 7.5% in 3 months 2% in one week, >5% in 1 month, >7.5% in 3 months 5% in one month, 7.5% in 3 months, 10% in 6 months, 20% in 1 year >5% in one month, >7.5% in 3 months, >10% in 6 months, >20% in 1 year Body Fat Wasting Mild Moderate Mild Severe Muscle Wasting Mild Moderate Mild Severe Presence of Edema Mild Moderate to Severe Mild Severe Abrasive Grinder Strength Not applicable Measurably Reduced Not applicable Measurably Reduced Source: Jerzy AguilarV, Poonam P, Gerry G, et al. Consensus statement: Academy of Nutrition and Dietetics and [place] Society for Parenteral and Enteral Nutrition: characteristics recommended for the identification and documentation of adult malnutrition (undernutrition).STEPHIE Aguilar Parenter Enteral Nutr. 2012;36(3):275-283. (Template Last Revised: September 2022) MTDD
[2023-07-25 08:30] VITALS: PULSE 104
[2023-07-25 10:35] LABS: Basophils # (A) 0.03 X 10*3/uL (0.00-0.10); Basophils % (A) 0.2 %; Eosinophils # (A) 0.15 X 10*3/uL (0.04-0.35); Eosinophils % (A) 1.1 %; HCT 39.6 % (39.6-50.0); HGB 12.4 g/dL (13.0-17.0); Lymphocytes # (A) 1.07 X 10*3/uL (0.90-5.00); Lymphocytes % (A) 8.2 %; MCH 29.9 pg (27.0-32.0); MCHC 31.3 g/dL (32.0-37.0); MCV 95.4 FL (80.0-97.0); Mean Platelet Volume 9.2 FL (9.5-12.2); Monocytes # (A) 1.12 X 10*3/uL (0.20-1.00); Monocytes % (A) 8.5 %; NRBC Per 100 WBC 0 X 10*3/uL (0.00-0.01); Neutrophils # (A) 10.57 X 10*3/uL (1.80-7.70); Neutrophils % (A) 80.8 %; Platelet Count 201 X 10*3/uL (140-440); RBC 4.15 X 10*6/uL (4.40-5.60); RDW 13.1 % (11.5-14.5)
[2023-07-25 10:38] LABS: Blood Urea Nitrogen 24.3 mg/dL (9.0-27.0); Calcium 8.5 mg/dL (8.7-10.3); Carbon Dioxide 33.4 mmol/L (21.6-31.8); Chloride 95 mmol/L (96-109); Glucose 138 mg/dL (70-110); Potassium 4.6 mmol/L (3.5-5.5); Sodium 140 mmol/L (135-145)
--- NOTE | 2023-08-01 04:44 | P.DS ---
Providers Date of admission: 07/19/23 21:05 Expected date of discharge: 07/25/23 Attending physician: Aruna Miguel Consults: 07/20/23 10:05 Consult Physician Routine Consulting Provider: Claudio Murdock Reason/Comments: COPD/ MINNA Do you want consulting provider notified?: Yes [facility]: Final diagnosis Acute hypoxemic respite failure secondary to acute COPD exacerbation history of small cell lung cancer s/p chemo in 2019 Severe protein calorie malnutrition with a BMI of 18.3 Laryngeal cancer complicated by dysphagia and esophagitis. Completed chemo and radiation Dysphagia patient underwent PEG tube placement on 01/13/2023 Currently some day smoker Medical marijuana use DVT prophylaxis and GI prophylaxis Full code Discharge disposition Patient is being discharged in a stable condition with guarded prognosis to home with home care. Patient will follow-up with Dr. Cortez in the outpatient setting upon discharge. Total time taken is greater than 35 minutes. Hospital course This is a 62-year-old male who was recently admitted with COPD exacerbation as well as dysphagia being closely monitored. Patient was evaluated by pulmonary maintained on breathing inhalational treatments as well as dietary to resume tube feedings. Patient evaluated by speech recommending strict n.p.o. as patient is extremely high risk for aspirating. Patient to follow-up with primary care provider patient will have home care being arranged and social work following arranging for necessary tube feeding equipment. Currently no reports of chest pain, shortness of breath, or palpitations. Patient is afebrile. No reports of nausea or vomiting and patient is tolerating tube feeding. Patient will be discharged home today. Overall guarded prognosis given patient's comorbidities Physical exam: Gen: This is a 62-year-old male who is awake, alert and oriented x 3,, elderly appearing, cachectic HEENT: Head is atraumatic, normocephalic. Pupils equal, round. Sclerae is anicteric. NECK: Supple. No JVD. No lymphadenopathy. No thyromegaly. LUNGS: Diminished breath sounds bilaterally with some coarse scattered rhonchi noted. No intercostal retractions. HEART: Regular rate and rhythm. No murmur. ABDOMEN: Soft. Thin. PEG tube noted bowel sounds are present. No masses. No tenderness. EXTREMITIES: No pedal edema. No calf tenderness. NEUROLOGICAL: Patient is awake, alert and oriented x3. Cranial nerves 2 through 12 are grossly intact. Please refer to medication reconciliation sheet for a list of medications. The impression and plan of care has been dictated by Sharon Thomposn, Nurse Practitioner as directed. Dr. Rhianna MD I have performed a history and examination and MDM of this patient, discussed the same with the dictator, and agree with the dictator's assessment and plan as written ,documented as a scribe. Based on total visit time, I have performed more than 50% of the visit. Patient Condition at Discharge: Fair Plan - Discharge Summary Discharge Rx Participant: No New Discharge Prescriptions: New Ipratropium-Albuterol Nebulize [Duoneb 0.5 mg-3 mg/3 ml Soln] 3 ml INHALATION RT-QID #100 each predniSONE 10 mg PO DIRECTED #24 tab Continue Vitamin E (Dl,Tocopheryl Acet) [Vitamin E (400 Iu = 180 mg)] 400 unit PO DAILY ondansetron HCL [Zofran] 8 mg PO Q12HR HYDROcodone/APAP [Henderson Elixir 7.5-325Mg/15Ml] 15 ml PO Q6H PRN PRN Reason: Pain Albuterol Inhaler [Ventolin Hfa Inhaler] 2 puff INHALATION RT-Q6H PRN #1 each PRN Reason: Shortness Of Breath Lidocaine Viscous 2% [Xylocaine Viscous] 5 ml MUCOUS MEM Q1H PRN PRN Reason: throat pain Ipratropium-Albuterol Nebulize [Duoneb 0.5 mg-3 mg/3 ml Soln] 3 ml INHALATION RT-QID PRN PRN Reason: Shortness Of Breath Budesonide/Formoterol Fumarate [Symbicort 80-4.5 Mcg Inhaler] 2 puff INHALATION RT-BID Discharge Medication List Lidocaine Viscous 2% [Xylocaine Viscous] 5 ml MUCOUS MEM Q1H PRN 01/10/23 [History] HYDROcodone/APAP [Henderson Elixir 7.5-325Mg/15Ml] 15 ml PO Q6H PRN 07/09/23 [History] Ipratropium-Albuterol Nebulize [Duoneb 0.5 mg-3 mg/3 ml Soln] 3 ml INHALATION RT-QID PRN 07/09/23 [History] Vitamin E (Dl,Tocopheryl Acet) [Vitamin E (400 Iu = 180 mg)] 400 unit PO DAILY 07/09/23 [History] ondansetron HCL [Zofran] 8 mg PO Q12HR 07/09/23 [History] Albuterol Inhaler [Ventolin Hfa Inhaler] 2 puff INHALATION RT-Q6H PRN #1 each 07/13/23 [Rx] Budesonide/Formoterol Fumarate [Symbicort 80-4.5 Mcg Inhaler] 2 puff INHALATION RT-BID 07/19/23 [History] Ipratropium-Albuterol Nebulize [Duoneb 0.5 mg-3 mg/3 ml Soln] 3 ml INHALATION RT -QID #100 each 07/25/23 [Rx] predniSONE 10 mg PO DIRECTED #24 tab 07/25/23 [Rx] Follow up Appointment(s)/Referral(s): [facility], [NON-STAFF] - As Needed Infusion Services,[facility] [REFERRING] - As Needed Venkata Cortez DO [Primary Care Provider] - 07/27/23 2:00 pm Jeff Lezama MD [STAFF PHYSICIAN] - 08/09/23 9:00 am Patient Instructions/Handouts: Prednisone (By mouth), Ipratropium/Albuterol (By breathing), COPD (Chronic Obstructive Pulmonary Disease) (DC), Esophagitis (DC) Activity/Diet/Wound Care/Special Instructions: Activity limited until follow-up follow-up with primary care provider Follow-up with pulmonary outpatient Continue taking medications as prescribed Continue with tube feedings and home care Continue breathing treatments and a prednisone taper on discharge Discharge Disposition: HOME WITH HOME HEALTH SERVICES
== END 2023-07-25 11:46 | disposition home health service (06) | DRG 140 ==
LOC: EC 17:13 → 5NMEDONC 21:04 → OBSVTOIN 21:05 → 5NMEDONC 22:59
PROVIDERS: ADMIT Hospitalist; ATTEND Hospitalist
PROC: 3E0G76Z Introduction of Nutritional Substance into Upper GI, Via Natural or Artificial Opening (ICD-10-PCS; principal; 2023-07-20)
DX: J44.1 Chronic obstructive pulmonary disease with (acute) exacerbation (principal); J96.01 Acute respiratory failure with hypoxia; C32.9 Malignant neoplasm of larynx, unspecified; F17.210 Nicotine dependence, cigarettes, uncomplicated; E43 Unspecified severe protein-calorie malnutrition; Z68.1 Body mass index [BMI] 19.9 or less, adult; J45.901 Unspecified asthma with (acute) exacerbation; K20.80 Other esophagitis without bleeding; R13.10 Dysphagia, unspecified; K21.9 Gastro-esophageal reflux disease without esophagitis; Y84.2 Radiological procedure and radiotherapy as the cause of abnormal reaction of the patient, or of later complication, without mention of misadventure at the time of the procedure; Z79.51 Long term (current) use of inhaled steroids; Z79.899 Other long term (current) drug therapy; Z85.118 Personal history of other malignant neoplasm of bronchus and lung; Z92.21 Personal history of antineoplastic chemotherapy; Z92.3 Personal history of irradiation; Z93.1 Gastrostomy status; Z71.3 Dietary counseling and surveillance; Z20.822 Contact with and (suspected) exposure to COVID-19
CPT/HCPCS: 36415; 70360; 71045; 74230; 80048; 80053; 83735; 84100; 84145; 84484; 85025; 87070; 87205; 87636; 93005; 94640; 94760; 96361; 96374; 96375; 96376; 99291

== ENCOUNTER 2023-08-16 11:43 | Day surgery (SDC) | payer OTHER ==
[2023-08-11 14:10] VITALS: BMI 17.9
[~2023-08-16 11:43] MED LIST: LACTATED RINGERS 1,000 ML IV SCH; LIDOCAINE 1% (10MG/ML) FOR IV START INTRADERMA PRN
[2023-08-16] MEDS: LACTATED RINGERS 1,000 ML IV SCH (12:20)
[2023-08-16 12:33] VITALS: RESP 20; TEMP 97.1
[2023-08-16] MEDS: LIDOCAINE 2% GLYDO JELLY 6 ML APPL TOPICAL ONE ×2 (13:10→13:35)
[2023-08-16] MEDS: LIDOCAINE 2% INJ 20 MG/ML INTRATRACH ONE (13:11)
[2023-08-16] MEDS ORDERED: PROPOFOL 10 MG/ML 20 ML VIAL IV ONE (13:26)
--- NOTE | 2023-08-16 14:08 | P.PCN ---
Date of Procedure: 08/16/23 Anesthesia: MAC Surgeon: Jeff Lezama Estimated Blood Loss (ml): 0 Pathology: other Condition: stable Disposition: same day Operative Findings: pre-op diagnosis Laryngeal cancer with previous chemoradiation therapy Suspect upper airway obstruction and an outpatient flow-volume loop spirometry showed evidence of fixed upper airway obstruction. Chronic dysphagia, difficulty with swallowing and the patient has a PEG tube in place History of lung cancer COPD Postop diagnosis epiglottic dysfunction/damage The epiglottis is moved posteriorly causing obstruction of the upper airway Unable to visualize the vocal cords during the inspection Procedure This procedure was done in the endoscopy suite. The procedure was intended to evaluate the upper and lower airway with special interest in identifying any airway obstruction as the patient has an abnormal flow-volume loop on a outpatient spirometry that was done in the office. The patient also has previous history of laryngeal cancer treated by chemoradiation therapy. The patient had a asymmetry in the airway and distal hypopharynx based on the CAT scan of the neck that was done on 01/10/2023. Specifically, the patient had some fullness in the larynx near the esophageal sphincter and there was asymmetry of the airway distal hypopharynx. Findings Flexible bronchoscope was inserted through the diagnosis was advanced to the posterior oropharynx. Immediately, the epiglottis was identified. The epiglottis was not symmetrical, and the tip of the epiglottis was drifted posteriorly touching the posterior pharyngeal wall. There was copious amount of secretions in the hypopharynx and larynx area. The secretions were essentially loose and liquidy in nature. Repeated attempts were done to pass the anatomic obstruction caused by the epiglottis. I was unable to pass the flexible bronchoscope past the epiglottis and visualize the vocal cords. Despite this epiglottic dysfunction, the patient continued to breathe normally maintain his oxygenation without having any significant stridor or respiratory distress. After several attempts, the procedure was aborted as it was quite technically difficult to pass the bronchoscope past the epiglottis. The vocal cords were not visualized. Lower airways were not visualized. 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 The patient has developed abnormalities in the swallow reflex and chronic dysphagia and the patient has a PEG tube for enteral feeding and nutritional support. The patient also has dysphonia, limited stridor, and episodes of aspiration pneumonia. Will discuss those findings with ENT physicians. Consider a tracheostomy tube for clearing of respiratory secretions and airway protection.
[2023-08-16 14:27] VITALS: BP 117/83; PULSE 95
== END 2023-08-16 14:59 | disposition home or self-care (01) ==
LOC: ORWHC2ENDO 11:43
PROVIDERS: ATTEND Internal Medicine Critical Care Medicine
DX: J38.7 Other diseases of larynx (principal); J44.9 Chronic obstructive pulmonary disease, unspecified; Z85.21 Personal history of malignant neoplasm of larynx; Z85.118 Personal history of other malignant neoplasm of bronchus and lung
CPT/HCPCS: 31622; J2704

== ENCOUNTER → 2023-11-15 | Outpatient (CLI) | payer BC, OTHER ==
--- NOTE | 2024-01-04 13:02 | CT ---
Patient: Claudio Lopez Ordering Physician: Unknown, Unknown ID: [id number] Phone, Pager: Phone: N/A Pager: N/A : 1960 Age/Gender: 63Y, M Primary Location: N/A Procedure: CT CHEST WO CONTRAST Study Date: 11/15/2023 11:17:00 AM EXAMINATION TYPE: CT chest wo con DATE OF EXAM: 11/15/2023 COMPARISON: 02/14/2023 HISTORY: Lung cancer CT DLP: 498.44 mGycm, Automated exposure control for dose reduction was used. CONTRAST: Performed injected with 0 mL of Isovue 300. TECHNIQUE: Axial images were obtained at 5 mm thick sections. Reconstructed images are reviewed on the computer in the coronal plane. FINDINGS: Portion of the thyroid visualized is normal. Tracheostomy tube is in the midline. There is a 0.6 cm subcentimeter nodule anterior medial left lung, series 3 image 22. There is a small nodule measuring 0.4 cm in the periphery of the left lung. Series 3 image 43. Mild infiltrate may be at the right lower lobe, series 3 image 43 measuring 0.6 cm. Findings were present previously and appear stable. No enlarged mediastinal or hilar adenopathy is evident. The ascending aorta diameter at the level of the main pulmonary artery is 3.3 cm. The main pulmonary artery diameter at the bifurcation is 2.[address] sections are obtained through the upper abdomen. PEG tube is present. IMPRESSION: 1. Stable small bilateral lung nodules. Continued monitoring is recommended. 2. No suspicious changes to suggest recurrent or metastatic disease. MTDD
== END | disposition home or self-care (01) ==
LOC: RADCTMAIN 10:45
PROVIDERS: ATTEND Internal Medicine Hematology & Oncology
DX: C34.90 Malignant neoplasm of unspecified part of unspecified bronchus or lung
CPT/HCPCS: 71250

== ENCOUNTER 2024-04-17 12:00 | Day surgery (SDC) | payer OTHER ==
[~2024-04-17 12:00] MED LIST changes: -LACTATED RINGERS 1,000 ML IV SCH
[2024-04-17 12:42] VITALS: TEMP 98
[2024-04-17] MEDS: IV FLUID CONTINUATION 1,000 ML IV ONE (12:45)
[2024-04-17] MEDS: LACTATED RINGERS 1,000 ML IV SCH (12:45)
[2024-04-17] MEDS ORDERED: PROPOFOL 10 MG/ML 20 ML VIAL IV ONE (13:01)
--- NOTE | 2024-04-17 13:13 | P.PCN ---
Date of Procedure: 04/17/24 Procedure(s) Performed: Preoperative Dx: Dysphagia, malnutrition, malfunctioning PEG tube Postoperative Dx: Same Procedure: EGD with PEG tube replacement Anesthesia: Sedation Endoscopist: Dr. Antunez Specimens: None Endoscopic Procedure: The patient was on the endoscopy table in the left decubitus position. The Olympus gastroscope was inserted into the oropharynx and passed under direct visualization to the region of the third portion of the duodenum. From that point the scope was slowly withdrawn inspecting all surfaces carefully. There were no neoplastic inflammatory or polypoid lesions throughout the duodenum. The pylorus was widely patent. The stomach was carefully inspected. The hub of the indwelling PEG tube was present in the distal body of the stomach. This was removed without difficulty. A new nonballoon 20 [place] replacement was placed without difficulty. 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 The patient was then taken to the recovery room in stable condition per anesthesia guidelines. Recommendations: May resume feeds through the PEG tube. Consider replacement in the next 1 to 2 years.
[2024-04-17 13:33] VITALS: BP 116/73; PULSE 87; RESP 16
== END 2024-04-17 13:53 | disposition home or self-care (01) ==
LOC: ORWHC2ENDO 12:00
PROVIDERS: ATTEND Surgery
DX: K94.23 Gastrostomy malfunction (principal); E46 Unspecified protein-calorie malnutrition; R13.10 Dysphagia, unspecified; I10 Essential (primary) hypertension; K21.9 Gastro-esophageal reflux disease without esophagitis; K56.1 Intussusception; F17.210 Nicotine dependence, cigarettes, uncomplicated; Z85.21 Personal history of malignant neoplasm of larynx; Z79.899 Other long term (current) drug therapy; Z90.89 Acquired absence of other organs; Z85.118 Personal history of other malignant neoplasm of bronchus and lung
CPT/HCPCS: 43246; J2704; B4087